=== PATIENT | male | born 1970 | race Caucasian/White ===

== ENCOUNTER 2020-07-09 07:09 | Inpatient (IN) | payer OTHER, SELFPAY ==
[2020-07-09] VITALS (29 sets, daily range): BP systolic 110–147; BP diastolic 81–128; PULSE 92–105; RESP 17–30; TEMP 36.6–37; O2SAT 90–100; BMI 38.9; BMI 35.1
--- NOTE | 2020-07-09 07:11 | EKG12_ITS ---
Test Reason : SOB Blood Pressure : / mmHG Vent. Rate : 104 BPM Atrial Rate : 104 BPM P-R Int : 150 ms QRS Dur : 110 ms QT Int : 372 ms P-R-T Axes : 037 073 018 degrees QTc Int : 489 ms Sinus tachycardia Possible Right ventricular hypertrophy Nonspecific ST abnormality Abnormal ECG Confirmed by AGA SKAGGS, SURESH ([id number]), business editor RE GUZMAN ([id number]) on 07/10/2020 1:01:54 PM Referred By: DENNIS Confirmed By:SURESH YUNG MD
--- NOTE | 2020-07-09 07:12 | CT_ITS ---
STUDY: CTA CHEST REASON FOR EXAM: Male, 50 years old. HYPOXIA, CP, HERNIA REPAIR 07/04/20, HX LUNG/TESTICULAR CANCER RADIATION DOSAGE (If Supplied By Facility): CTDIvol = ( 11.43 ) mGy, DLP = ( 569.18 ) mGycm TECHNIQUE: The examination was performed with the intravenous administration of IV 100mL Isovue-370. Post-processing of the angiographic images was performed, with multiplanar reformation and 3D reconstruction. Individualized dose optimization techniques were used for this CT. COMPARISON: Comparison is made with prior study 06/16/2016. FINDINGS: Multiple bilateral intraluminal filling defects involving all the branches of the pulmonary arteries bilaterally. Thrombus is also seen within the distal portions of the right and left main pulmonary arteries. Normal thoracic aorta and visualized great vessels. There is no demonstrated aortic dissection. Normal heart and pericardium. There are visualized mediastinal lymph nodes, which are within normal size limits, and with normal morphology. These have decreased in size as compared to prior study. Normal hilar regions. Normal visualized trachea and bronchi. The lungs are well expanded. Focal atelectasis and/or infiltrate is seen in the posterior medial segment of the right lower lobe. Mild increased markings are also seen in the anterior medial aspect of the right middle lobe as well as thickening of the left major fissure. Normal pleura. Normal chest wall structures. Normal osseous structures. Multiple small gallstones. CT/CTA Chest W/WO Contrast IMPRESSION: Extensive bilateral pulmonary embolism. Electronically Signed: Nicholas Jones, at 8:23 EST , Service support ,
--- NOTE | 2020-07-09 07:35 | ED.VIS.GEN ---
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 Angel Gorman Onset: Today Context: Sudden Onset Timing: Continuous Quality: Acute chest pain and abdominal pain Location: Anterior right central Current Severity: Severe Maximum Severity: Severe Worsened by: Breathing Relieved by: Nothing Associated Symptoms: Shortness of breath and hypoxia Narrative: Patient is a 50-year-old healthy male who had abdominal surgery for hernia by Dr. Angel Coreas on Thursday. He was Covid negative that time. He has had abdominal pain since surgery. He is on pain medicine. He states he was walking on the steps when he got an abrupt onset of chest pain or shortness of breath. He states he is not been doing much. He denies constitutional symptoms, HEENT symptoms, nausea, vomiting or diarrhea. He denies urologic symptoms. He denies leg pain, swelling discoloration. Prior similar symptoms: No Recent Illness/Hospitalization: Yes - Past Medical History (1) Lung cancer Status: Suspected (2) Restrictive lung disease medication Status: Acute Past Medical History - Allergies and Home Meds Allergies/Adverse Reactions: Allergies No Known Allergies Allergy (Verified 07/09/20 07:15) Primary Care Physician: Connor Alfaro MD [Primary Care Provider] - Prior records reviewed: No Surgical History: - - Right orchiectomy, MediPort insertion Lives: Spouse/ Significant Other, With Family Smoking Status: Former smoker Alcohol: None Drugs: None - Family History Maternal Family History: Reports: Cancer Paternal Family History: Reports: DVT Review of Systems General: Denies: Chills, Fever, Malaise, Sweats Eyes: Denies: Visual changes - bilaterally, Blurred Vision - bilaterally ENT: Denies: Bilateral ear pain, Rhinorrhea, Sore throat Cardiovascular: Reports: Chest pain, Palpitations Respiratory: Reports: Dyspnea, Dyspnea on exertion. Denies: Cough, Sputum, Orthopnea, Paroxysmal nocturnal dyspnea, -, - Gastrointestinal: Reports: Abdominal pain, Nausea, Constipation. Denies: Vomiting, Diarrhea, Melena, Hematochezia Genitourinary: Denies: Dysuria, Hematuria, Frequency Musculoskeletal: Reports: Extremity Pain - Significant other informed he complained of right calf pain yesterday.. Denies: Myalgias, Arthralgias, Neck pain, Back pain, Swelling, -, - Skin: Denies: Rash, Wounds Neurological: Denies: Headache, Weakness, Parasthesia Psych: Reports: Anxiety. Denies: Depression Endocrine: Denies: Polyuria, Polydipsia Hematologic: Denies: Easy bruising, Easy bleeding Physical Exam Vital Signs/Narrative: Vital Signs Temp Pulse Resp BP Pulse Ox 07/09/20 07:17 96 07/09/20 07:14 98 F 103 H 30 H 110/81 H 93 07/09/20 07:10 98 F 103 H 30 H 110/81 H 93 Inital Vital Signs reviewed: Yes General: Well nourished, Well developed, Obese, Acute Distress Head: Normocephalic, Atraumatic Eyes: Perrl, EOMI. Negative for: Pale conjunctiva ENT: No rhinorrhea Neck: Supple, Nontender, No lymphadenopathy, No JVD Cardiovascular: Regular rhythm, No murmurs, Normal S1, Normal S2, Tachycardia Respiratory: CTA bilaterally, Decreased Air Movement Abdomen: Soft, No masses, - - Healing incision and bruising noted. Negative for: Nontender, Nondistended, Normal bowel sounds Rectal: Deferred Back: Nontender, Normal Inspection Extremities: Nontender, Tenderness - Right mid calf, - - Is increased size of the right calf but not greater than 3 cm. Skin: Normal color, No rash. Negative for: Cyanosis, Diaphoresis, Jaundice Neurological: Alert, Oriented x3, Cranial nerves II-XII grossly intact, Normal Strength, Normal Sensation Psychological: Normal affect Diagnostic/Tx/Re-eval 07/09/20 07:12 CTA Chest W/WO Contrast [CT] Stat Laboratory Results 07/09/20 07:30 WBC 11.9 H RBC 5.27 Hgb 16.0 Hct 46.8 MCV 88.8 MCH 30.4 MCHC 34.2 RDW Std Deviation 39.7 RDW Coeff of Uriel 12.2 Plt Count 175 MPV 9.6 Immature Gran % (Auto) 0.600 Neut % (Auto) 81.7 H Lymph % (Auto) 11.3 L Gladwin % (Auto) 5.0 Eos % (Auto) 1.1 Baso % (Auto) 0.3 Absolute Neuts (auto) 9.8 H Absolute Lymphs (auto) 1.35 Nucleated RBC % 0 - EKG Initial EKG Interpretation: Sinus Tachycardia - Sinus tachycardia with a ventricular rate of 104. TX interval is 150 ms. QRS duration 110 ms. QT duration [address]-T wave changes most likely due to respiratory distress. There is evidence of right heart strain. - Medical Decision Making History of recent surgery, pulse ox of 60% with acute chest pain concern for pulmonary embolus. Dr. Angel Coreas was contacted prior to patient's arrival. He stated if TPA is needed may administer since his surgery was last Thursday. He states he put mesh and and tacked it down. The bowel he states was irritated. There was no significant dissection or bleeding intraoperatively. There was lysis of adhesions. Differential diagnosis includes cardiac ischemia, doubtful based on prehospital EKG, pulmonary embolus, dissection, pneumonia. Nursing staff was unable to establish peripheral IV access for CTA. Right subclavian line was placed under emergent conditions. Patient was prepped draped sterile manner. Hospital policy and guidelines were adhered to. Everyone in the room was wearing a cap and mask. The patient was prepped draped sterile manner. The right subclavian vein was cannulated excessively first attempt. He complained of significant pain with insertion of guidewire. Guidewire had resistance and was pulled out. Readjustment of needle resulted in aspiration of blood. Using Seldinger technique triple-lumen was placed. Blood was aspirated from all 3 ports. Patient was given a bolus of heparin. Spoke with significant other who informed me of the calf pain. CT was reviewed by me and reveals bilateral pulmonary embolus involving the right and left main pulmonary artery with significant clot load/. The hospitalist was contacted for admission to ICU. - Critical Care Time Critical care time (excluding procedures): 30-74 minutes - Critical care time 37 minutes excluding procedures. This included a history, physical examination, documentation, discussion with surgeon,, Discussing w/Patient &/or Family/Grave Digger, Discussing w/Consultants - The hospitalist request that I speak with the defence force senior officer. Test was placed on paged to inform him of patient's history, physical findings and diagnostic results., Arranging Admission or Transfer Procedures Procedure(s): Right subclavian line was placed. Documentation in the medical decision making portion of the chart. ED Disposition - Plan for ED Patient: Disposition: Acute Care Hospital [facility] Diagnosis: Bilateral pulmonary embolism, Acute respiratory failure with hypoxia Referrals: Connor Alfaro MD [Primary Care Provider] -
[2020-07-09] MEDS: Heparin Injection (Vial) 5,000 UNIT/ML VIAL 4000 UNIT IV (07:37)
[2020-07-09] MEDS: 0.9% Normal Saline 1,000 ML 150 ML IV ×4 (07:39→22:44)
[2020-07-09 07:57] LABS: Absolute Lymphocyte Count 1.35 X10^3/uL (0.83-4.51); Absolute Neutrophil Count 9.8 X10^3/uL (2.0-7.7); Basophil# 0.03 X10^3/uL; Basophil% 0.3 % (0-1); Eosinophil# 0.13 X10^3/uL; Eosinophils% 1.1 % (0-5); Hematocrit 46.8 % (40-54); Lymphocyte # 1.35 X10^3/ul (4.0); Lymphocyte % 11.3 % (19-41); Mean Corp Hgb Conc 34.2 g/dL (32-36); Mean Corpuscular Hgb 30.4 pg (27.0-32.0); Mean Corpuscular Volume 88.8 fL (80-94); Mean Platelet Vol. 9.6 fl (6.2-12.0); NRBC Flagged by Analyzer 0 % (0-5); Neutrophil # 9.75 X10^3/uL (2.7-7.7); Neutrophil % 81.7 % (47-70); POSITIVE COUNT YES; Platelet Count 175 K/mm3 (150-450); RBC Distribution Width CV 12.2 % (11.6-14.6); RBC Distribution Width SD 39.7 fl (35.1-43.9); Red Blood Count 5.27 M/mm3 (4.6-6.2); White Blood Count 11.9 K/mm3 (4.4-11.0)
--- NOTE | 2020-07-09 07:59 | NURSING ---
DR MCINTOSH FOR DR COLLINS
[2020-07-09 08:00] LABS: Differential Indicated SCAN CRITERIA MET
--- NOTE | 2020-07-09 08:10 | NURSING ---
ICU TERELETSKY SUBMASSIVE AR, RESP FAILURE WITH HYPOXIA
--- NOTE | 2020-07-09 08:10 | NURSING ---
DR MCINTOSH IN WITH PATIENT
[2020-07-09 08:12] LABS: Anion Gap 11 (5-15); BUN 15 mg/dL (7-18); BUN/Creat Ratio 9.5 RATIO (10-20); Calcium,Total 10.8 mg/dL (8.5-10.1); Chloride 101 mmol/L (98-107); Creatinine, Serum 1.58 mg/dL (0.70-1.30); EST Glomerular Filtration Rate 50 mL/min (>60); Est Glom Filt Rate - Afr Amer 60 mL/min (>60); Estimated Creatinine Clearance 55.32 ml/min; Glucose 183 mg/dL (74-106); International Normalized Ratio 1.1; Potassium 3.7 mmol/L (3.5-5.1); Prothrombin Time (Protime)PT. 13.6 SECONDS (11.7-14.9); Sodium Level 139 mmol/L (136-145)
[2020-07-09 08:13] LABS: Partial Thromboplast Time 21.5 Seconds (24.1-36.2)
[2020-07-09 08:16] LABS: BNP,B-Type NATRIURETIC PEPTIDE 10.5 pg/mL (0-100)
[2020-07-09 08:17] LABS: Platelet Estimate ADEQUATE (ADEQ)
[2020-07-09 08:18] LABS: Platelet Morphology LARGE
--- NOTE | 2020-07-09 08:28 | NURSING ---
CV ICU 201
[2020-07-09] MEDS: HEPARIN/D5w 25,000 UNITS 25,000 UNITS/250 ML IV.SOLN. 16 UNITS IV ×2 (08:31→22:43)
[2020-07-09] MEDS: Heparin Injection (Vial) 5,000 UNIT/ML VIAL 500 UNIT IV (08:31)
--- NOTE | 2020-07-09 09:02 | PCM.HP.STD ---
Problem List (1) Shortness of breath Status: Acute History of Present Illness Date of Admission: 07/09/20 Chief Complaint: Shortness of breath, chest pain The patient is a 50 year old M who was seen in the emergency room at with a chief complaint of increasing shortness of breath which started early this morning, patient had some slight shortness of breath last night, this morning it got much worse and he had associated precordial chest pain with it. Patient had major abdominal surgery 4 days ago for lysis of adhesions. His Covid test at that time was negative. Patient denies any fevers or chills. Work-up in the emergency room included labs which showed his creatinine to be slightly elevated, white blood cell count was elevated 11.9, his troponin was elevated at 0.212. Patient had a CTA of his chest which showed extensive bilateral pulmonary emboli. Patient was placed on a nonrebreather and he was able to maintain his oxygen saturation with a nonrebreather. Patient will be admitted to ICU on a heparin drip, he will be seen in consultation by the orchestrator. Past Medical History Allergies No Known Allergies Allergy (Verified 07/09/20 07:15) Surgical History: appendectomy, - - Right orchiectomy, MediPort insertion, surgery for lysis of adhesions 06/2020 Psychiatric History: No pertinent psych hx Lives: Spouse/ Significant Other Smoking Status: Former smoker Tobacco Use: Non-smoker Alcohol: Occasional Drugs: None - *Family History Maternal History Items: Cancer Paternal History Items: DVT Review of Systems Constitutional: Reports: Fatigue. Denies: Anorexia, Chills, Fever, Night Sweats, Malaise, Weakness, Weight Change Eyes: Denies: Cataracts, Conjunctivae Inflammation, Double vision, Drainage HEENT: Denies: Difficulty Swallowing, Dysphasia, Ear Pain, Eye Pain, Hearing Changes, Nasal bleeding, Nasal Congestion, Post Nasal Drip Cardiovascular: Reports: Chest Pain. Denies: Claudication, Chest Pressure, Chest Tightness, Edema, Heaviness, Light Headedness, Orthopnea, Palpitations, Paroxysmal Noc. Dyspnea Respiratory: Reports: Shortness of Breath, Shortness of breath at rest, Shortness of breath upon exertion. Denies: Cough, Hemoptysis, Pleuritic Pain, Sputum production, Wheezing Gastrointestinal: Reports: Abdominal Pain - Patient complains of generalized abdominal pain which has been present after his surgery several days ago. Denies: Constipation, Diarrhea, Hematemesis, Hematochezia, Nausea, Melena, Vomiting Genitourinary: Denies: Dysuria, Frequency, Hematuria, Hesitancy, Nocturia, Retention, Urgency Musculoskeletal: Denies: Back Pain, Foot Pain, Hand Pain, Joint Pain, Joint stiffness, Joint swelling, Joint Tenderness, Leg Pain Skin: Denies: Dryness, Jaundice, Pruritis, Rash Neurological: Denies: Blurred vision, Double vision, Slurred speech, Difficulty swallowing, Focal weakness, Headaches, Incoordination, Numbness, Tingling Psychiatric: Denies: Anxiety, Depression, Homicidal Ideations, Suicidal Ideations Endocrine: Denies: Change in Body Habitus, Heat/ Cold Intolerance, Polydipsia, Polyuria Hematologic/ Lymphatic: Denies: Adenopathy, Anemia, Easy Bruising, Easy Bleeding, Petechiae, Purpura VTE Information - Inpt Only VTE Present on Admission: Yes VTE Mechan Device Prophylaxis: None VTE Pharm Prophylaxis ordered?: No Reason prophylaxis not ordered:: Treatment Not Indicated Patient Problems: Active and Suspected Problems Lung cancer (Suspected) Restrictive lung disease medication (Acute) Bilateral pulmonary embolism (Acute) Acute respiratory failure with hypoxia (Acute) Shortness of breath (Acute) - Physical Exam Vitals/I&O's: Vital Signs Temp Pulse Resp BP Pulse Ox 97.9 F 100 26 H 126/89 H 97 07/09/20 08:43 07/09/20 08:43 07/09/20 08:43 07/09/20 08:43 07/09/20 08:43 Oxygen Flow Rate (L/min) 12 Oxygen Delivery Method Non-Rebreather Weight: 116.25 kg Body Mass Index (BMI) 38.9 General: Alert, Oriented x3, Cooperative, No apparent distress, Well developed, Well nourished HEENT: Atraumatic, PERRLA, EOMI, Normocephalic Oral: Moist Mucosa Neck: Supple, No JVD, Trachea Midline, Thyroid Normal Size and Texture Lungs: Clear to auscultation, Normal air movement, No rhonchi, No wheeze, No rales Cardiovascular: Regular rate, Regular Rhythm, Normal S1, Normal S2, No murmurs, PMI Normal, No rub noted, Tachycardic Abdomen: Bowel Sounds Present, Soft, Non-Distended, Tender - Generalized abdominal tenderness is noted to deep palpation over the entire abdomen Extremities: No clubbing, No cyanosis, No edema, Capillary Refill Less than 3 Seconds Skin: No rashes, No breakdown Musculoskeletal: No Tenderness to Palpation of Joints or Extremities Neurological: Cranial nerves II-XII grossly intact, Neuro grossly intact, Sensory exam intact to light touch and pain Psych/Mental Status: Normal Affect, Appropriate, Alert and oriented to time, place, person, mood and affect Laboratory Results 07/09/20 07:30: WBC 11.9 H, RBC 5.27, Hgb 16.0, Hct 46.8, MCV 88.8, MCH 30.4, MCHC 34.2, RDW Std Deviation 39.7, RDW Coeff of Uriel 12.2, Plt Count 175, MPV 9.6, Immature Gran % (Auto) 0.600, Neut % (Auto) 81.7 H, Lymph % (Auto) 11.3 L, Simpson % (Auto) 5.0, Eos % (Auto) 1.1, Baso % (Auto) 0.3, Absolute Neuts (auto) 9.8 H, Absolute Lymphs (auto) 1.35, Nucleated RBC % 0, Platelet Estimate ADEQUATE, Plt Morphology Comment LARGE 07/09/20 07:30: PT 13.6, INR 1.1, APTT 21.5 L 07/09/20 07:30: Sodium 139, Potassium 3.7, Chloride 101, Carbon Dioxide 27.0, Anion Gap 11, BUN 15, Creatinine 1.58 H, Estim Creat Clear Calc 55.32, Est GFR (MDRD) Af Amer 60, Est GFR (MDRD) Non-Af 50 L, BUN/Creatinine Ratio 9.5 L, Glucose 183 H, Calcium 10.8 H, Troponin I 0.212 H 07/09/20 07:30: B-Natriuretic Peptide 10.5 Current Medications Acetaminophen (Acetaminophen 325 Mg Tablet) 650 mg PO Q6H PRN PRN PRN Reason: Pain Score 1-10/Temp > 100.7 F Heparin Sodium (Porcine) (Heparin Injection (Vial) 5,000 Unit/Ml Vial) 0 unit IV UD PRN; Protocol PRN Reason: dose adjustment Sodium Chloride () 1,000 mls @ 150 mls/hr IV .[id number] FOR[facility]LY [facility], 1928–1983 Last Admin: 07/09/20 07:39 Dose: 150 mls/hr Documented by: Sodium Chloride 1,000 ml/ N/A 1,000 mls @ 348.75 mls/hr IV .[id number] [facility], 1928–1983 Stop: 07/09/20 14:16 Last Admin: 07/09/20 08:10 Dose: 3 ml/kg/hr, 348.8 mls/hr Documented by: Heparin Sodium/Dextrose () 25,000 units in 250 mls @ 16 mls/hr IV .[id number] [facility], 1928–1983; Protocol Last Admin: 07/09/20 08:31 Dose: 1,600 units/hr, 16 mls/hr Documented by: Morphine Sulfate (Morphine 4 Mg/Ml Syringe) 4 mg IV Q3H PRN PRN PRN Reason: Pain Score 6-10 Ondansetron HCl (Ondansetron 4 Mg/2 Ml Vial) 4 mg IV Q8H PRN PRN PRN Reason: NAUSEA/VOMITING Assessment/Plan All Active Problems Restrictive lung disease medication (Acute) Bilateral pulmonary embolism (Acute) Acute respiratory failure with hypoxia (Acute) Shortness of breath (Acute) Fever and neutropenia (Acute) #1 acute bilateral pulmonary emboli-patient will be admitted to ICU on a heparin drip, he will be seen in consultation by pulmonary medicine. #2 acute hypoxic respiratory failure secondary to #1-patient's O2 sat will be monitored, he is currently on nonrebreather #3 elevated creatinine-probably secondary to dehydration, IV fluids will be given #4 history of restrictive lung disease-secondary to medication given for lung cancer Inpatient E&M: [id number] Init Hosp L3
--- NOTE | 2020-07-09 10:20 | PCM.CON.CC ---
Reason for Consult Date of Consultation: 07/09/20 Reason for Consultation: Acute hypoxemic respiratory failure secondary to submassive pulmonary embolism History of Present Illness: The patient is a 50-year-old male, with a history as outlined below, who presented to the emergency department on July 09 with rather abrupt onset shortness of breath. The patient does have a history of metastatic testicular cancer, which was treated in the past and is under surveillance by Dr. Zhu of oncology. The patient did report having been diagnosed with venous thromboembolism around the time of his cancer treatment. He was treated for a period of time with Lovenox. The patient just recently underwent surgery by Dr. Joe last week, during which time, he underwent a hernia repair and lysis of adhesions. The patient reported that postoperatively he was immediately mobilized and denied any prolonged immobility. On presentation to the emergency department, the patient was noted to be afebrile but was tachycardic, tachypneic and hypoxemic. Laboratory evaluation was largely unremarkable, with the exception of a creatinine of 1.58. Troponin was increased to 0.212 with a normal BNP. CTA chest revealed significant bilateral pulmonary emboli. The patient was placed on a continuous heparin infusion and admitted to the medical intensive care unit for further management. Past Medical History Allergies No Known Allergies Allergy (Verified 07/09/20 07:15) Surgical History: appendectomy, - - Right orchiectomy, MediPort insertion, surgery for lysis of adhesions 06/2020 Psychiatric History: No pertinent psych hx Lives: Spouse/ Significant Other Smoking Status: Former smoker Tobacco Use: Non-smoker Alcohol: Occasional Drugs: None - *Family History Maternal History Items: Cancer Paternal History Items: DVT Review of Systems Constitutional: Denies: Chills, Fever Eyes: Denies: Blurred vision, Double vision HEENT: Denies: Head Aches, Sinus Congestion, Sinus Drainage Cardiovascular: Denies: Chest Pain, Palpitations Respiratory: Reports: Shortness of Breath Gastrointestinal: Denies: Abdominal Pain, Nausea, Vomiting Genitourinary: Denies: Dysuria Musculoskeletal: Denies: Joint Pain, Joint Tenderness Skin: Denies: Rash, Wounds Neurological: Denies: Numbness, Tingling, Focal weakness Psychiatric: Denies: Anxiety, Depression, Homicidal Ideations, Suicidal Ideations Hematologic/ Lymphatic: Reports: Hx of blood clot Patient Problems: Active and Suspected Problems Lung cancer (Suspected) Restrictive lung disease medication (Acute) Bilateral pulmonary embolism (Acute) Acute respiratory failure with hypoxia (Acute) Shortness of breath (Acute) Objective: The patient's most recent lab work, culture data and imaging studies have all been personally reviewed. - Physical Exam Vitals/I&O's: Vital Signs Temp Pulse Resp BP Pulse Ox 97.9 F 99 22 H 147/128 H 100 07/09/20 08:43 07/09/20 10:00 07/09/20 10:00 07/09/20 10:00 07/09/20 10:00 Oxygen Flow Rate (L/min) 15 Oxygen Delivery Method Non-Rebreather Weight: 251 lb 15.814 oz Body Mass Index (BMI) 35.1 Intake and Output for Last 24 Hours 07/07/20 07/08/20 07/09/20 23:59 23:59 23:59 Intake Total 426.29 / 426.29 Output Total 350 / 350 Balance 76.29 / 76.29 General: Alert, Cooperative, No apparent distress HEENT: Atraumatic, PERRLA, Normocephalic Oral: No Gingival or Mucosal Lesions/ Ulcerations Neck: Supple, No Nodes, Trachea Midline Lungs: No rhonchi, No wheeze, No rales, Diminished, Tachypneic Cardiovascular: Regular rate, Regular Rhythm Abdomen: Bowel Sounds Present, Soft, Obese, Tender Extremities: No clubbing, No cyanosis, No edema Skin: No breakdown Musculoskeletal: No Tenderness to Palpation of Joints or Extremities Lymphatic: No Cervical, Supraclavicular, or Inguinal Adenopathy Neurological: Cranial nerves II-XII grossly intact, Neuro grossly intact Psych/Mental Status: Normal Affect, Appropriate Labs (Last 48 Hours) 07/09/20 07/09/20 07/09/20 07:30 07:30 07:30 WBC 11.9 H RBC 5.27 Hgb 16.0 Hct 46.8 MCV 88.8 MCH 30.4 MCHC 34.2 RDW Std Deviation 39.7 RDW Coeff of Uriel 12.2 Plt Count 175 MPV 9.6 Immature Gran % (Auto) 0.600 Neut % (Auto) 81.7 H Lymph % (Auto) 11.3 L [place] % (Auto) 5.0 Eos % (Auto) 1.1 Baso % (Auto) 0.3 Absolute Neuts (auto) 9.8 H Absolute Lymphs (auto) 1.35 Nucleated RBC % 0 Platelet Estimate ADEQUATE Plt Morphology Comment LARGE PT 13.6 INR 1.1 APTT 21.5 L Sodium 139 Potassium 3.7 Chloride 101 Carbon Dioxide 27.0 Anion Gap 11 BUN 15 Creatinine 1.58 H Estim Creat Clear Calc 55.32 Est GFR (MDRD) Af Amer 60 Est GFR (MDRD) Non-Af 50 L BUN/Creatinine Ratio 9.5 L Glucose 183 H Calcium 10.8 H Troponin I 0.212 H B-Natriuretic Peptide 07/09/20 07:30 WBC RBC Hgb Hct MCV MCH MCHC RDW Std Deviation RDW Coeff of Uriel Plt Count MPV Immature Gran % (Auto) Neut % (Auto) Lymph % (Auto) [place] % (Auto) Eos % (Auto) Baso % (Auto) Absolute Neuts (auto) Absolute Lymphs (auto) Nucleated RBC % Platelet Estimate Plt Morphology Comment PT INR APTT Sodium Potassium Chloride Carbon Dioxide Anion Gap BUN Creatinine Estim Creat Clear Calc Est GFR (MDRD) Af Amer Est GFR (MDRD) Non-Af BUN/Creatinine Ratio Glucose Calcium Troponin I B-Natriuretic Peptide 10.5 Clinical Impression(s) from Imaging Studies Chest CTA 07/09/20 07:12 IMPRESSION: Extensive bilateral pulmonary embolism. Electronically Signed: Nicholas Jones, at 8:23 EST , Service support , Current Medications Acetaminophen (Acetaminophen 325 Mg Tablet) 650 mg PO Q6H PRN PRN PRN Reason: Pain Score 1-10/Temp > 100.7 F Heparin Sodium (Porcine) (Heparin Injection (Vial) 5,000 Unit/Ml Vial) 0 unit IV UD PRN; Protocol PRN Reason: dose adjustment Sodium Chloride () 1,000 mls @ 150 mls/hr IV .Q6H40M [facility] Last Admin: 07/09/20 07:39 Dose: 150 mls/hr Documented by: Sodium Chloride 1,000 ml/ N/A 1,000 mls @ 348.75 mls/hr IV .Q2H53M [facility] Stop: 07/09/20 14:16 Last Admin: 07/09/20 09:51 Dose: Not Given Documented by: Heparin Sodium/Dextrose () 25,000 units in 250 mls @ 16 mls/hr IV .[id number] [facility]; Protocol Last Titration: 07/09/20 09:00 Dose: 1,600 units/hr, 16 mls/hr Documented by: Morphine Sulfate (Morphine 4 Mg/Ml Syringe) 4 mg IV Q3H PRN PRN PRN Reason: Pain Score 6-10 Ondansetron HCl (Ondansetron 4 Mg/2 Ml Vial) 4 mg IV Q8H PRN PRN PRN Reason: NAUSEA/VOMITING Sodium Chloride (0.9% Saline Lock 10 Ml Syringe) 10 - 40 ml IV UD PRN PRN Reason: SALINE FLUSH Assessment/Plan Active and Suspected Problems Lung cancer (Suspected) Restrictive lung disease medication (Acute) Bilateral pulmonary embolism (Acute) Acute respiratory failure with hypoxia (Acute) Shortness of breath (Acute) RECOMMENDATIONS: 1. Continue heparin infusion with plans to transition to Xarelto or Eliquis tomorrow. 2. Obtain echocardiogram. 3. Wean supplemental oxygen to maintain saturations at or above 90%. 4. Encourage incentive spirometer use and mobilize patient as tolerated. IMPRESSIONS: 1. Acute hypoxemic respiratory failure secondary to submassive PE The patient presented to the hospital with rather acute onset shortness of breath having recently undergone elective outpatient surgery last week. The patient was subsequently found to be positive for submassive PE, with extensive clot burden noted on CTA chest. 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 Given the unprovoked nature of this event coupled with his extensive clot burden, he would likely best be served by systemic anticoagulation without plans for interruption. Agree with continuing heparin infusion for now. If the patient remains stable over the next 24 hours, will plan to transition him to a Xa inhibitor tomorrow. Wean supplemental oxygen to maintain saturations at or above 90%. The patient plans to follow-up with Dr. Zhu in the very near future regarding the need for lifelong anticoagulation. 2. Acute kidney injury Likely prerenal in etiology. The patient is currently receiving supplemental IV fluid hydration. Anticipate improvement with volume expansion. Continue to monitor urine output. No current indication for renal replacement therapy. 3. History of testicular nonseminoma cancer Complicates care, management, recovery and prognosis. Continue outpatient follow-up with hematology/oncology as scheduled. CODE status: Discussed CODE status at length including difference between FULL code, DNR-CCA and DNR-CC status. Following discussions about the differences in these status, patient requested full CODE STATUS. Advanced Care Planning Face to Face Time: 12 minutes This note was generated with [employer] dictation software. It may contain incorrect words, spelling, and punctuation that were not noted in checking the note before signing. Inpatient E&M: 21963 Init Hosp L3 Procedures: 27736 Advncd Care Plan 30 Min
--- NOTE | 2020-07-09 11:32 | ECHOCS_ITS ---
Reason For Study: Emboli Procedure This was a 2D Doppler, Color Flow transthoracic echocardiogram. The study was technically difficult. Contrast injection was performed. Exam performed portable in ICU/CCU. Left Ventricle Normal LV size. Left ventricular systolic function is normal. The estimated ejection fraction is 60 %. No regional wall motion abnormalities noted. Right Ventricle Moderately dilated right ventricle. Mild to moderate global right ventricular systolic dysfunction. Atria Normal left atrium. Normal right atrium. Mitral Valve Normal mitral valve. Tricuspid Valve Normal tricuspid valve. Unable to estimate RV systolic pressure/pulmonary artery pressure due to technically difficult study. Aortic Valve Trisinus/trileaflet aortic valve. Pulmonic Valve The pulmonic valve is not well visualized. Great Vessels Normal aortic root. Pericardium/Pleural No pericardial effusion. Medication Diluted definity 1.5ml given slow IV push to enhance endocardial definition. MMode/2D Measurements & Calculations LVIDd: 3.2 cm IVSd: 1.7 cm LA dimension: 3.0 cm LVIDs: 1.8 cm LVPWd: 1.3 cm RVDd: 5.3 cm FS: 44.2 % LAV(MOD-bp): 27.1 ml LA A4 area: 10.1 cm2 RA A4 area: 17.6 cm2 LAV(MOD-bp) Indexed: 11.7 ml/m2 LAV(MOD-sp2): 35.7 ml LAV(MOD-sp4): 19.3 ml Time Measurements MV dec time: 0.21 sec Doppler Measurements & Calculations MV E max coy: 63.6 cm/sec Lat Peak E' Coy: 11.5 cm/sec Med Peak E' Coy: 5.1 cm/sec MV A max coy: 92.8 cm/sec E/E' lat: 5.5 E/E' med: 12.5 MV E/A: 0.69 Ao V2 max: 130.0 cm/sec LV V1 max: 114.1 cm/sec PA V2 max: 46.6 cm/sec Ao max P.8 mmHg LV V1 max P.2 mmHg Interpretation Summary Normal LV size. Left ventricular systolic function is normal. The estimated ejection fraction is 60 %. Moderately dilated right ventricle. Mild to moderate global right ventricular systolic dysfunction. Contrast injection was performed. The study was technically difficult. Ordering Physician: Tay Calvin Referring Physician: Connor Alfaro Performed By: Juan Hines RCS
[2020-07-09 14:11] LABS: Partial Thromboplast Time 73.9 Seconds (24.1-36.2)
--- NOTE | 2020-07-09 16:20 | NURSING ---
Pt called out stating he is having left flank/back pain. Pt states pain is 6/10 but denies need for pain medication. Pain is reproducible on palpation at the L4-L5 region to the left of the spine. There is no deformity or bruising noted. Dr. Forrest notified, H&H and Kidney ultrasound ordered.
--- NOTE | 2020-07-09 16:33 | US_ITS ---
STUDY: RENAL ULTRASOUND - COMPLETE REASON FOR EXAM: Male, 50 years old. LEFT FLANK PAIN, RECENT HERNIA SURGERY TECHNIQUE: Ultrasound evaluation of the kidneys was performed with real-time and static yarbrough-scale imaging. COMPARISON: CTA of the chest dated July 09, 2020. FINDINGS: Reidentification of multiple gallstones. RIGHT KIDNEY: Normal location of the right kidney, which is normal in size. The right kidney measures 9.9 x 5.5 x 5.9 cm. There is a normal cortex of the right kidney. The renal cortex measures 1.4 cm. There is no right renal mass or cyst. There are no right renal calculi. There is no right hydronephrosis. DISTAL RIGHT URETER: There is non-visualization of the distal right ureter. There is no demonstrated right ureterovesical junction calculus. There is a visualized right ureteral jet. LEFT KIDNEY: Normal location of the left kidney, which is normal in size. The left kidney measures 12.1 x 5.6 x 5.8 cm. There is a normal cortex of the left kidney. The renal cortex measures 1.7 cm. There is no left renal mass or cyst. There are no left renal calculi. There is no left hydronephrosis. DISTAL LEFT URETER: There is non-visualization of the distal left ureter. There is no demonstrated left ureterovesical junction calculus. There is a visualized left ureteral jet. BLADDER: Normal fluid distended bladder. There is a normal wall thickness of the distended urinary bladder. There is no demonstrated mass within the urinary bladder. There are no demonstrated bladder calculi. US/Kidney and Bladder IMPRESSION: 1. Normal ultrasound of the kidneys and urinary bladder. 2. Multiple gallstones. Electronically Signed: El Orozco MD at 18:48 EST , Service support ,
[2020-07-09 16:34] LABS: Hemoglobin 14.8 g/dL (13.0-16.5)
[2020-07-09] MEDS: Morphine 4 MG/ML Syringe IV ×2 (19:38→22:48)
[2020-07-09] MEDS: Ondansetron 4 MG/2 ML Vial IV (19:39)
[2020-07-09] MEDS: Calcium Carbonate 500 MG Tablet 1000 MG PO (20:16)
[2020-07-09 21:12] LABS: Partial Thromboplast Time 62.6 Seconds (24.1-36.2)
[2020-07-09] MEDS: 0.9% Saline Lock 10 ML Syringe IV (22:49)
[2020-07-10] VITALS (16 sets, daily range): BP systolic 112–147; BP diastolic 69–103; PULSE 80–105; RESP 13–18; TEMP 36.6–37.3; O2SAT 92–98
[2020-07-10] MEDS: Morphine 4 MG/ML Syringe IV ×2 (04:24→10:49)
[2020-07-10] MEDS: 0.9% Normal Saline 1,000 ML 150 ML IV (04:28)
[2020-07-10 04:42] LABS: Absolute Lymphocyte Count 1.44 X10^3/uL (0.83-4.51); Basophil# 0.03 X10^3/uL; Basophil% 0.3 % (0-1); Eosinophil# 0.12 X10^3/uL; Eosinophils% 1.3 % (0-5); Hematocrit 41.3 % (40-54); Lymphocyte # 1.44 X10^3/ul (4.0); Lymphocyte % 15.1 % (19-41); Mean Corp Hgb Conc 33.9 g/dL (32-36); Mean Corpuscular Hgb 30.2 pg (27.0-32.0); Mean Platelet Vol. 8.8 fl (6.2-12.0); Monocyte# 0.93 X10^3/uL; Monocyte% 9.7 % (0-10); NRBC Flagged by Analyzer 0 % (0-5); Neutrophil # 7.01 X10^3/uL (2.7-7.7); Neutrophil % 73.3 % (47-70); Platelet Count 143 K/mm3 (150-450); RBC Distribution Width CV 12.3 % (11.6-14.6); RBC Distribution Width SD 39.9 fl (35.1-43.9); Red Blood Count 4.64 M/mm3 (4.6-6.2); White Blood Count 9.6 K/mm3 (4.4-11.0)
[2020-07-10] MEDS: LORazepam 2 MG/ML Syringe 0.5 MG IV (05:07)
[2020-07-10] MEDS: 0.9% Saline Lock 10 ML Syringe IV ×4 (05:08→19:15)
[2020-07-10 05:13] LABS: Anion Gap 5 (5-15); BUN 12 mg/dL (7-18); Calcium,Total 8.7 mg/dL (8.5-10.1); Chloride 105 mmol/L (98-107); Creatinine, Serum 1.34 mg/dL (0.70-1.30); EST Glomerular Filtration Rate 60 mL/min (>60); Est Glom Filt Rate - Afr Amer 73 mL/min (>60); Glucose 117 mg/dL (74-106); Potassium 3.8 mmol/L (3.5-5.1); Sodium Level 140 mmol/L (136-145)
--- NOTE | 2020-07-10 06:11 | PCM.PN.INT ---
Subjective: The patient was seen and examined at the bedside this morning. Events from the last 24 hours have been reviewed. The patient is currently afebrile, hemodynamically stable and maintaining appropriate oxygen saturations on 5 L/min via nasal cannula. The patient denies any shortness of breath this morning. He does report the presence of ongoing back pain. Objective: The patient's most recent lab work, culture data and imaging studies have all been personally reviewed. Surface echocardiogram revealed normal LV function with an ejection fraction of 60%. The RV was noted to be moderately dilated with mild to moderate global RV systolic dysfunction. Right ventricular systolic pressure was unable to be estimated. General: Alert, Cooperative, No apparent distress, - - Resting comfortably in bed. HEENT: Atraumatic, PERRLA, Normocephalic Oral: No Gingival or Mucosal Lesions/ Ulcerations Neck: Supple, No Nodes, Trachea Midline Lungs: Normal air movement Cardiovascular: Regular rate, Regular Rhythm Abdomen: Bowel Sounds Present, Soft Extremities: No clubbing, No cyanosis, No edema Skin: No breakdown Musculoskeletal: No Muscle Wasting Lymphatic: No Cervical, Supraclavicular, or Inguinal Adenopathy Neurological: Cranial nerves II-XII grossly intact, Neuro grossly intact Psych/Mental Status: Alert and oriented to time, place, person, mood and affect Vital Signs Temp Pulse Resp BP Pulse Ox 98.2 F 92 13 127/98 H 93 07/10/20 04:00 07/10/20 05:00 07/10/20 05:00 07/10/20 05:00 07/10/20 05:00 Oxygen Flow Rate (L/min) 6 Oxygen Delivery Method Nasal Cannula Weight: 251 lb 15.814 oz Body Mass Index (BMI) 35.1 Intake and Output for Last 24 Hours 07/08/20 07/09/20 07/10/20 23:59 23:59 23:59 Intake Total 3935.76 / 4055.76 1140 / 1140 Output Total 2475 / 2675 700 / 700 Balance 1460.76 / 1380.76 440 / 440 Labs (Last 48 Hours) 07/09/20 07/09/20 07/09/20 07:30 07:30 07:30 WBC 11.9 H RBC 5.27 Hgb 16.0 Hct 46.8 MCV 88.8 MCH 30.4 MCHC 34.2 RDW Std Deviation 39.7 RDW Coeff of Uriel 12.2 Plt Count 175 MPV 9.6 Immature Gran % (Auto) 0.600 Neut % (Auto) 81.7 H Lymph % (Auto) 11.3 L [place] % (Auto) 5.0 Eos % (Auto) 1.1 Baso % (Auto) 0.3 Absolute Neuts (auto) 9.8 H Absolute Lymphs (auto) 1.35 Nucleated RBC % 0 Platelet Estimate ADEQUATE Plt Morphology Comment LARGE PT 13.6 INR 1.1 APTT 21.5 L Sodium 139 Potassium 3.7 Chloride 101 Carbon Dioxide 27.0 Anion Gap 11 BUN 15 Creatinine 1.58 H Estim Creat Clear Calc 55.32 Est GFR (MDRD) Af Amer 60 Est GFR (MDRD) Non-Af 50 L BUN/Creatinine Ratio 9.5 L Glucose 183 H Calcium 10.8 H Troponin I 0.212 H B-Natriuretic Peptide 07/09/20 07/09/20 07/09/20 07:30 13:55 16:30 WBC RBC Hgb 14.8 Hct 43.0 MCV MCH MCHC RDW Std Deviation RDW Coeff of Uriel Plt Count MPV Immature Gran % (Auto) Neut % (Auto) Lymph % (Auto) [place] % (Auto) Eos % (Auto) Baso % (Auto) Absolute Neuts (auto) Absolute Lymphs (auto) Nucleated RBC % Platelet Estimate Plt Morphology Comment PT INR APTT 73.9 H Sodium Potassium Chloride Carbon Dioxide Anion Gap BUN Creatinine Estim Creat Clear Calc Est GFR (MDRD) Af Amer Est GFR (MDRD) Non-Af BUN/Creatinine Ratio Glucose Calcium Troponin I B-Natriuretic Peptide 10.5 07/09/20 07/10/20 07/10/20 20:30 02:30 04:30 WBC 9.6 RBC 4.64 Hgb 14.0 Hct 41.3 MCV 89.0 MCH 30.2 MCHC 33.9 RDW Std Deviation 39.9 RDW Coeff of Uriel 12.3 Plt Count 143 L MPV 8.8 Immature Gran % (Auto) 0.300 Neut % (Auto) 73.3 H Lymph % (Auto) 15.1 L [place] % (Auto) 9.7 Eos % (Auto) 1.3 Baso % (Auto) 0.3 Absolute Neuts (auto) 7.0 Absolute Lymphs (auto) 1.44 Nucleated RBC % 0 Platelet Estimate Plt Morphology Comment PT INR APTT 62.6 H 67.0 H Sodium Potassium Chloride Carbon Dioxide Anion Gap BUN Creatinine Estim Creat Clear Calc Est GFR (MDRD) Af Amer Est GFR (MDRD) Non-Af BUN/Creatinine Ratio Glucose Calcium Troponin I B-Natriuretic Peptide 07/10/20 04:30 WBC RBC Hgb Hct MCV MCH MCHC RDW Std Deviation RDW Coeff of Uriel Plt Count MPV Immature Gran % (Auto) Neut % (Auto) Lymph % (Auto) [place] % (Auto) Eos % (Auto) Baso % (Auto) Absolute Neuts (auto) Absolute Lymphs (auto) Nucleated RBC % Platelet Estimate Plt Morphology Comment PT INR APTT Sodium 140 Potassium 3.8 Chloride 105 Carbon Dioxide 30.0 Anion Gap 5 BUN 12 Creatinine 1.34 H Estim Creat Clear Calc 71.80 Est GFR (MDRD) Af Amer 73 Est GFR (MDRD) Non-Af 60 BUN/Creatinine Ratio 9.0 L Glucose 117 H Calcium 8.7 Troponin I B-Natriuretic Peptide Clinical Impression(s) from Imaging Studies Chest CTA 07/09/20 07:12 IMPRESSION: Extensive bilateral pulmonary embolism. Electronically Signed: Nicholas Jones at 8:23 EST , Service support , Renal Ultrasound 07/09/20 16:33 IMPRESSION: 1. Normal ultrasound of the kidneys and urinary bladder. 2. Multiple gallstones. Electronically Signed: El Orozco MD at 18:48 EST , Service support , Medical Necessity - Tobacco Use Smoking Status: Former smoker Tobacco Use: Non-smoker Assessment/Plan All Active Problems Restrictive lung disease medication (Acute) Bilateral pulmonary embolism (Acute) Acute respiratory failure with hypoxia (Acute) Shortness of breath (Acute) Fever and neutropenia (Acute) RECOMMENDATIONS: 1. Okay from my perspective to transition the patient from a heparin infusion to either Eliquis or Xarelto. 2. Wean supplemental oxygen to maintain saturations at or above 90%. 3. Encourage incentive spirometer use and mobilize patient as tolerated. 4. The patient is medically stable for transfer out of the intensive care unit. 5. 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 Zhu, after discharge. IMPRESSIONS: 1. Acute hypoxemic respiratory failure secondary to submassive PE The patient presented to the hospital with rather acute onset shortness of breath having recently undergone elective outpatient surgery last week. The patient was subsequently found to be positive for submassive PE, with extensive clot burden noted on CTA chest. 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 Given the unprovoked nature of this event coupled with his extensive clot burden, he would likely best be served by systemic anticoagulation without plans for interruption. At this time, the patient can be transitioned from a continuous heparin infusion over to either Xarelto or Eliquis. Plan to continue to wean supplemental oxygen to maintain saturations at or above 90%. Encourage incentive spirometer use and mobilize patient as tolerated. The patient plans to follow-up with Dr. Zhu in the very near future regarding the need for lifelong anticoagulation. 2. Acute kidney injury Improved. Likely prerenal in etiology. Continue to monitor urine output. No current indication for renal replacement therapy. 3. History of testicular nonseminoma cancer Complicates care, management, recovery and prognosis. Continue outpatient follow-up with hematology/oncology as scheduled. CODE status: Discussed CODE status at length including difference between FULL code, DNR-CCA and DNR-CC status. Following discussions about the differences in these status, patient requested FULL CODE STATUS. This note was generated with [employer] dictation software. It may contain incorrect words, spelling, and punctuation that were not noted in checking the note before signing. Inpatient E&M: 88686 [facility] Hosp L3
--- NOTE | 2020-07-10 08:01 | PCM.PROGNOTE ---
Patient Problems: Active and Suspected Problems Lung cancer (Suspected) Restrictive lung disease medication (Acute) Bilateral pulmonary embolism (Acute) Acute respiratory failure with hypoxia (Acute) Shortness of breath (Acute) Subjective: Patient was seen and examined today in ICU, yesterday he complained of flank pain, ultrasound of the kidneys was obtained which showed no abnormalities other than gallstones. Patient currently is on nasal cannula oxygen and appears comfortable. Patient does not complain of any fevers or chills, he has no complaints of any chest pain. - Physical Exam Vitals/I&O's: Vital Signs Temp Pulse Resp BP Pulse Ox 98.2 F 94 16 127/77 H 96 07/10/20 04:00 07/10/20 07:00 07/10/20 07:00 07/10/20 07:00 07/10/20 07:00 Oxygen Flow Rate (L/min) 6 Oxygen Delivery Method Nasal Cannula Weight: 115.3 kg Body Mass Index (BMI) 35.1 Intake and Output for Last 24 Hours 07/08/20 07/09/20 07/10/20 23:59 23:59 23:59 Intake Total 3935.76 / 4055.76 1595 / 1595 Output Total 2475 / 2675 900 / 900 Balance 1460.76 / 1380.76 695 / 695 General: Alert, Oriented x3, Cooperative, No apparent distress, Well developed HEENT: Atraumatic, PERRLA, EOMI, Normocephalic Oral: Moist Mucosa Neck: Supple, No JVD, Trachea Midline, Thyroid Normal Size and Texture Lungs: Clear to auscultation, Normal air movement, No rhonchi, No wheeze, No rales Cardiovascular: Regular rate, Regular Rhythm, Normal S1, Normal S2, No murmurs, PMI Normal, No rub noted, No Gallop Abdomen: Bowel Sounds Present, Soft, Non Tender, Non-Distended Extremities: No clubbing, No cyanosis, No edema, Capillary Refill Less than 3 Seconds Skin: No rashes, No breakdown Musculoskeletal: No Tenderness to Palpation of Joints or Extremities Neurological: Cranial nerves II-XII grossly intact, Neuro grossly intact, Sensory exam intact to light touch and pain, Coordination normal Psych/Mental Status: Normal Affect, Appropriate, Alert and oriented to time, place, person, mood and affect Laboratory Results 07/09/20 07:30: Platelet Estimate ADEQUATE, Plt Morphology Comment LARGE 07/09/20 07:30: PT 13.6, INR 1.1, APTT 21.5 L 07/09/20 07:30: Sodium 139, Potassium 3.7, Chloride 101, Carbon Dioxide 27.0, Anion Gap 11, BUN 15, Creatinine 1.58 H, Estim Creat Clear Calc 55.32, Est GFR (MDRD) Af Amer 60, Est GFR (MDRD) Non-Af 50 L, BUN/Creatinine Ratio 9.5 L, Glucose 183 H, Calcium 10.8 H, Troponin I 0.212 H 07/09/20 07:30: B-Natriuretic Peptide 10.5 07/09/20 13:55: APTT 73.9 H 07/09/20 16:30: Hgb 14.8, Hct 43.0 07/09/20 20:30: APTT 62.6 H 07/10/20 02:30: APTT 67.0 H 07/10/20 04:30: WBC 9.6, RBC 4.64, Hgb 14.0, Hct 41.3, MCV 89.0, MCH 30.2, MCHC 33.9, RDW Std Deviation 39.9, RDW Coeff of Uriel 12.3, Plt Count 143 L, MPV 8.8, Immature Gran % (Auto) 0.300, Neut % (Auto) 73.3 H, Lymph % (Auto) 15.1 L, [place] % (Auto) 9.7, Eos % (Auto) 1.3, Baso % (Auto) 0.3, Absolute Neuts (auto) 7.0, Absolute Lymphs (auto) 1.44, Nucleated RBC % 0 07/10/20 04:30: Sodium 140, Potassium 3.8, Chloride 105, Carbon Dioxide 30.0, Anion Gap 5, BUN 12, Creatinine 1.34 H, Estim Creat Clear Calc 71.80, Est GFR (MDRD) Af Amer 73, Est GFR (MDRD) Non-Af 60, BUN/Creatinine Ratio 9.0 L, Glucose 117 H, Calcium 8.7 Current Medications Acetaminophen (Acetaminophen 325 Mg Tablet) 650 mg PO Q6H PRN PRN PRN Reason: Pain Score 1-10/Temp > 100.7 F Calcium Carbonate (Calcium Carbonate 500 Mg Tablet) 1,000 mg PO Q4H PRN PRN PRN Reason: dyspepsia/reflux Last Admin: 07/09/20 20:16 Dose: 1,000 mg Documented by: Heparin Sodium (Porcine) (Heparin Injection (Vial) 5,000 Unit/Ml Vial) 0 unit IV UD PRN; Protocol PRN Reason: dose adjustment Heparin Sodium/Dextrose () 25,000 units in 250 mls @ 16 mls/hr IV .[id number] [facility]; Protocol Last Admin: 07/09/20 22:43 Dose: 1,600 units/hr, 16 mls/hr Documented by: Morphine Sulfate (Morphine 4 Mg/Ml Syringe) 4 mg IV Q3H PRN PRN PRN Reason: Pain Score 6-10 Last Admin: 07/10/20 04:24 Dose: 4 mg Documented by: Ondansetron HCl (Ondansetron 4 Mg/2 Ml Vial) 4 mg IV Q8H PRN PRN PRN Reason: NAUSEA/VOMITING Last Admin: 07/09/20 19:39 Dose: 4 mg Documented by: Sodium Chloride (0.9% Saline Lock 10 Ml Syringe) 10 - 40 ml IV UD PRN PRN Reason: SALINE FLUSH Last Admin: 07/10/20 05:08 Dose: 10 ml Documented by: Medical Necessity - Tobacco Use Smoking Status: Former smoker Tobacco Use: Non-smoker Assessment/Plan All Active Problems Restrictive lung disease medication (Acute) Bilateral pulmonary embolism (Acute) Acute respiratory failure with hypoxia (Acute) Shortness of breath (Acute) Fever and neutropenia (Acute) #1 acute bilateral pulmonary emboli-patient appears stable for transfer to PCU, he will be transitioned over to oral anticoagulants #2 acute hypoxic respiratory failure secondary to #1-patient's O2 sat will be monitored, currently he is on nasal cannula oxygen #3 elevated creatinine-probably secondary to dehydration, continue IV fluids, recheck labs #4 history of restrictive lung disease-secondary to medication given for lung cancer Inpatient E&M: [id number] [facility] Hosp L2
[2020-07-10 09:27] LABS: Partial Thromboplast Time 70.4 Seconds (24.1-36.2)
--- NOTE | 2020-07-10 10:06 | NURSING ---
report given to Gagan VO on patient.
--- NOTE | 2020-07-10 13:35 | CASEMGMT ---
This RN CM to room to complete CM assessment and pt is sleeping soundly at this time. Pt does not awaken to verbal stimuli or knock on the door at this time. Will attempt later. SStaten RN CM
[2020-07-10] MEDS: HEPARIN/D5w 25,000 UNITS 25,000 UNITS/250 ML IV.SOLN. 16 UNITS IV (15:15)
--- NOTE | 2020-07-10 18:33 | CT_ITS ---
STUDY: CT ABDOMEN AND PELVIS WITHOUT CONTRAST REASON FOR EXAM: Male, 50 years old. FLANK PAIN. Extensive bilateral pulmonary emboli seen on recent chest CTA RADIATION DOSAGE (If Supplied By Facility): CTDIvol = ( 17.17 ) mGy, DLP = ( 1025.10 ) mGycm TECHNIQUE: Transaxial images were obtained from the dome of the diaphragm to the symphysis pubis without oral contrast, and without intravenous contrast. Sagittal and coronal images were reconstructed. Individualized dose optimization techniques were used for this CT. COMPARISON: CTA of the chest dated July 09, 2020. CT of abdomen and pelvis dated May 01, 2016 FINDINGS: Bibasilar atelectasis is present, right greater than left. Focal parenchymal infarcts or possibility given the extensive pulmonary emboli seen on the recent study. Upper midline intra-abdominal hernia mesh is present a small residual hernia is present measuring 4.4 cm in diameter. Healed midline surgical incision tract of the anterior abdominal wall. A small to moderate-sized 6.18 cm fluid collection is present in the subcutaneous fat to the left side of the umbilicus likely related to the prior hernia repair and likely represents a postoperative seroma. Postoperative mesenteric edema is present throughout the abdomen and pelvis. No intra-abdominal fluid collection or free air. Normal liver. Numerous gallstones are present. Normal spleen. Normal pancreas. Normal bilateral adrenal glands. 2 mm calyceal stone seen in the lower pole of the left kidney. 3 mm calyceal stones seen in the midpole of the right kidney. Normal visualized stomach. Normal small intestine. A surgical clip is seen in the lower left abdomen posterior to the rectus abdominis. The appendix is visualized and appears normal. No bowel dilatation or obstruction. A few colonic diverticula are present. There is diffuse atherosclerotic calcification of the abdominal aorta, without a demonstrated aneurysm. Normal inferior vena cava. Normal retroperitoneum. Normal urinary bladder. Small fat-containing left inguinal hernia reidentified. There are diffuse degenerative changes of the visualized lumbar spine. CT/Abdomen/Pelvis without Cont IMPRESSION: 1. Bibasilar atelectasis is present, right greater than left. Focal parenchymal infarcts or possibility given the extensive pulmonary emboli seen on the recent study. 2. Upper midline intra-abdominal hernia mesh is present a small residual hernia is present measuring 4.4 cm in diameter. Healed midline surgical incision tract of the anterior abdominal wall. 3. A small to moderate-sized 6.18 cm fluid collection is present in the subcutaneous fat to the left side of the umbilicus likely related to the prior hernia repair and likely represents a postoperative seroma. Postoperative mesenteric edema is present throughout the abdomen and pelvis. No intra-abdominal fluid collection or free air. 4. Bilateral nonobstructing kidney stones. 5. Numerous gallstones 6. Colonic diverticulosis Electronically Signed: El Orozco MD at 19:23 EST , Service support ,
[2020-07-10] MEDS: Enoxaparin 120 MG/0.8 ML Syringe SC (19:14)
[2020-07-10] MEDS: Calcium Carbonate 500 MG Tablet 1000 MG PO (20:10)
[2020-07-11] VITALS (11 sets, daily range): BP systolic 138–152; BP diastolic 80–96; PULSE 76–99; RESP 17–20; TEMP 36.8–37.3; O2SAT 94–98
[2020-07-11] MEDS: oxyCODONE 5 MG Tablet PO (02:07)
[2020-07-11] MEDS: Acetaminophen 325 MG Tablet 650 MG PO ×2 (02:07→14:43)
--- NOTE | 2020-07-11 02:17 | NURSING ---
pt reports he has walked in his room x3 [facility] and is using his incentive spirometer
[2020-07-11] MEDS: Enoxaparin 120 MG/0.8 ML Syringe SC (05:39)
--- NOTE | 2020-07-11 10:21 | PCM.PN.PUL ---
Patient Problems: Active and Suspected Problems Lung cancer (Suspected) Restrictive lung disease medication (Acute) Bilateral pulmonary embolism (Acute) Acute respiratory failure with hypoxia (Acute) Shortness of breath (Acute) Subjective: The patient was seen and examined at the bedside this morning. Events from the last 24 hours have been reviewed. The patient is currently afebrile, hemodynamically stable and maintaining appropriate oxygen saturations on 2 L/min via nasal cannula. The patient has been transitioned to Lovenox twice daily at this time. Objective: The patient's most recent lab work, culture data and imaging studies have all been personally reviewed. Surface echocardiogram revealed normal LV function with an ejection fraction of 60%. The RV was noted to be moderately dilated with mild to moderate global RV systolic dysfunction. Right ventricular systolic pressure was unable to be estimated. - Physical Exam Vitals/I&O's: Vital Signs Temp Pulse Resp BP Pulse Ox 98.5 F 89 17 152/87 H 97 07/11/20 07:47 07/11/20 07:47 07/11/20 07:47 07/11/20 07:47 07/11/20 08:12 Oxygen Flow Rate (L/min) 2 Oxygen Delivery Method Nasal Cannula Weight: 253 lb 8.505 oz Body Mass Index (BMI) 35.1 Intake and Output for Last 24 Hours 07/09/20 07/10/20 07/11/20 23:59 23:59 23:59 Intake Total 3935.76 / 4055.76 2929.00 / 2929.00 Output Total 2475 / 2675 1750 / 1750 150 / 150 Balance 1460.76 / 1380.76 1179.00 / 1179.00 -150 / -150 General: Alert, No apparent distress HEENT: Atraumatic, Normocephalic Oral: Moist Mucosa Neck: Supple Lungs: Normal air movement, No rhonchi, No wheeze, No rales Cardiovascular: Regular rate, Regular Rhythm Abdomen: Bowel Sounds Present, Soft Extremities: No clubbing, No cyanosis, No edema Skin: No breakdown Musculoskeletal: No Tenderness to Palpation of Joints or Extremities Lymphatic: No Cervical, Supraclavicular, or Inguinal Adenopathy Neurological: Cranial nerves II-XII grossly intact, Neuro grossly intact Psych/Mental Status: Alert and oriented to time, place, person, mood and affect Labs (Last 48 Hours) 07/09/20 07/09/20 07/09/20 13:55 16:30 20:30 WBC RBC Hgb 14.8 Hct 43.0 MCV MCH MCHC RDW Std Deviation RDW Coeff of Uriel Plt Count MPV Immature Gran % (Auto) Neut % (Auto) Lymph % (Auto) [place] % (Auto) Eos % (Auto) Baso % (Auto) Absolute Neuts (auto) Absolute Lymphs (auto) Nucleated RBC % APTT 73.9 H 62.6 H Sodium Potassium Chloride Carbon Dioxide Anion Gap BUN Creatinine Estim Creat Clear Calc Est GFR (MDRD) Af Amer Est GFR (MDRD) Non-Af BUN/Creatinine Ratio Glucose Calcium 07/10/20 07/10/20 07/10/20 02:30 04:30 04:30 WBC 9.6 RBC 4.64 Hgb 14.0 Hct 41.3 MCV 89.0 MCH 30.2 MCHC 33.9 RDW Std Deviation 39.9 RDW Coeff of Uriel 12.3 Plt Count 143 L MPV 8.8 Immature Gran % (Auto) 0.300 Neut % (Auto) 73.3 H Lymph % (Auto) 15.1 L [place] % (Auto) 9.7 Eos % (Auto) 1.3 Baso % (Auto) 0.3 Absolute Neuts (auto) 7.0 Absolute Lymphs (auto) 1.44 Nucleated RBC % 0 APTT 67.0 H Sodium 140 Potassium 3.8 Chloride 105 Carbon Dioxide 30.0 Anion Gap 5 BUN 12 Creatinine 1.34 H Estim Creat Clear Calc 71.80 Est GFR (MDRD) Af Amer 73 Est GFR (MDRD) Non-Af 60 BUN/Creatinine Ratio 9.0 L Glucose 117 H Calcium 8.7 07/10/20 08:20 WBC RBC Hgb Hct MCV MCH MCHC RDW Std Deviation RDW Coeff of Uriel Plt Count MPV Immature Gran % (Auto) Neut % (Auto) Lymph % (Auto) [place] % (Auto) Eos % (Auto) Baso % (Auto) Absolute Neuts (auto) Absolute Lymphs (auto) Nucleated RBC % APTT 70.4 H Sodium Potassium Chloride Carbon Dioxide Anion Gap BUN Creatinine Estim Creat Clear Calc Est GFR (MDRD) Af Amer Est GFR (MDRD) Non-Af BUN/Creatinine Ratio Glucose Calcium Clinical Impression(s) from Imaging Studies Chest CTA 07/09/20 07:12 IMPRESSION: Extensive bilateral pulmonary embolism. Electronically Signed: Nicholas Karen, at 8:23 EST , Service support , Renal Ultrasound 07/09/20 16:33 IMPRESSION: 1. Normal ultrasound of the kidneys and urinary bladder. 2. Multiple gallstones. Electronically Signed: El Orozco MD at 18:48 EST , Service support , Abdomen/Pelvis CT 07/10/20 18:33 IMPRESSION: 1. Bibasilar atelectasis is present, right greater than left. Focal parenchymal infarcts or possibility given the extensive pulmonary emboli seen on the recent study. 2. Upper midline intra-abdominal hernia mesh is present a small residual hernia is present measuring 4.4 cm in diameter. Healed midline surgical incision tract of the anterior abdominal wall. 3. A small to moderate-sized 6.18 cm fluid collection is present in the subcutaneous fat to the left side of the umbilicus likely related to the prior hernia repair and likely represents a postoperative seroma. Postoperative mesenteric edema is present throughout the abdomen and pelvis. No intra-abdominal fluid collection or free air. 4. Bilateral nonobstructing kidney stones. 5. Numerous gallstones 6. Colonic diverticulosis Electronically Signed: El Orozco MD at 19:23 EST , Service support , Current Medications Acetaminophen (Acetaminophen 325 Mg Tablet) 650 mg PO Q6H PRN PRN PRN Reason: Pain Score 1-10/Temp > 100.7 F Last Admin: 07/11/20 02:07 Dose: 650 mg Documented by: Calcium Carbonate (Calcium Carbonate 500 Mg Tablet) 1,000 mg PO Q4H PRN PRN PRN Reason: dyspepsia/reflux Last Admin: 07/10/20 20:10 Dose: 1,000 mg Documented by: Enoxaparin Sodium (Enoxaparin 120 Mg/0.8 Ml Syringe) 120 mg SC Q12@0600,1800 [place] Last Admin: 07/11/20 05:39 Dose: 120 mg Documented by: Ondansetron HCl (Ondansetron 4 Mg/2 Ml Vial) 4 mg IV Q8H PRN PRN PRN Reason: NAUSEA/VOMITING Last Admin: 07/09/20 19:39 Dose: 4 mg Documented by: Oxycodone HCl (Oxycodone 5 Mg Tablet) 5 mg PO Q4H PRN PRN PRN Reason: Pain Score 6-10 Last Admin: 07/11/20 02:07 Dose: 5 mg Documented by: Sodium Chloride (0.9% Saline Lock 10 Ml Syringe) 10 - 40 ml IV UD PRN PRN Reason: SALINE FLUSH Last Admin: 07/10/20 19:15 Dose: 10 ml Documented by: Medical Necessity - Tobacco Use Smoking Status: Former smoker Tobacco Use: Non-smoker Assessment/Plan All Active Problems Restrictive lung disease medication (Acute) Bilateral pulmonary embolism (Acute) Acute respiratory failure with hypoxia (Acute) Shortness of breath (Acute) Fever and neutropenia (Acute) RECOMMENDATIONS: 1. Okay from my perspective to discharge on either Eliquis or Xarelto. 2. Wean supplemental oxygen to maintain saturations at or above 90%. 3. Encourage incentive spirometer use and mobilize patient as tolerated. 4. The patient plans to follow-up with his loan operations specialist, Dr. Zhu, after discharge. 5. Anticipate home-going supplemental oxygen need. IMPRESSIONS: 1. Acute hypoxemic respiratory failure secondary to submassive PE The patient presented to the hospital with rather acute onset shortness of breath having recently undergone elective outpatient surgery last week. The patient was subsequently found to be positive for submassive PE, with extensive clot burden noted on CTA chest. 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 Given the unprovoked nature of this event coupled with his extensive clot burden, he would likely best be served by systemic anticoagulation without plans for interruption. Recommend discharge home on either Eliquis or Xarelto along with supplemental oxygen to maintain saturations at or above 90%. Encourage incentive spirometer use and mobilize patient as tolerated. The patient plans to follow-up with Dr. Zhu in the very near future regarding the need for lifelong anticoagulation. 2. Acute kidney injury Improved. Likely prerenal in etiology. Continue to monitor urine output. No current indication for renal replacement therapy. 3. History of testicular nonseminoma cancer Complicates care, management, recovery and prognosis. Continue outpatient follow-up with hematology/oncology as scheduled. CODE status: Discussed CODE status at length including difference between FULL code, DNR-CCA and DNR-CC status. Following discussions about the differences in these status, patient requested FULL CODE STATUS. This note was generated with [employer] dictation software. It may contain incorrect words, spelling, and punctuation that were not noted in checking the note before signing. Inpatient E&M: [id number] Subs Hosp L2
--- NOTE | 2020-07-11 11:11 | CASEMGMT ---
TAVO BURTON assessment: Phone interview for initial transition planning/care coordination assessment. TAVO BURTON introduced self and role at [facility], pt voices understanding and consents to assessment at this time. Pt is A/Ox4 at this time and answers all questions appropriately at this time. Care providers, pharmacy, and demographics verified at this time. Presentation: Pt s/p surgery last thursday and woke up SOB with sat 67% Admitting dx: PE, resp failure PCP: Dominic Specialists: Tatyana, surgeon Preferred Pharmacy: [facility]ob[facility] Cm/[facility] Insurance: [employer] Prescription Benefit: [employer]-pt provided Eliquis co-pay card to activate and then will be tubed down to [facility] retail pharmacy as Dr. Forrest already called script to them. Living Will/HPOA: Pt states has LW/HPOA and is aware that they are not on file at [facility] at this time. Pt states, Alissa Neal, is HPOA. LNOK: Juany Verma, mother; Guerita Bradford, sig other Living Arrangements: Pt states lives with sig other in home and states no concerns at home at this time. Pt states is independent with all ADL's. Transportation: Pt states drives self and states no transportation concerns at this time. DME/HHC: Pt states no current DME or need for any at this time. Pt states no preference for DME company, if needed. Pt states no hx of HHC Or SNF in the past. Pt states no concerns with going home at time of discharge. 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 Pt states does not smoke cigarettes but does occasionally drink ETOH. Pt states no further concerns/needs at this time. CM to follow for home oxygen need and any further discharge planning/needs. Advised pt to ask for CM if any further questions/concerns/needs arise, voices understanding. Pt Goal: Home Plan: Home [place] TAVO BURTON
--- NOTE | 2020-07-11 12:32 | CASEMGMT ---
TAVO Beal was given the [employer] co-pay card to give to patient to activate. Bing BAPTISTE MSW
--- NOTE | 2020-07-11 13:50 | PN_ITS ---
Patient Problems: Active and Suspected Problems Lung cancer (Suspected) Restrictive lung disease medication (Acute) Bilateral pulmonary embolism (Acute) Acute respiratory failure with hypoxia (Acute) Shortness of breath (Acute) Subjective: Patient was seen and examined today, he is still requiring supplemental oxygen at this time. Patient still complains of some lower back discomfort-his CT of his abdomen and pelvis did not show any obvious pathology that would account for his symptoms. Patient does not complain of any chest discomfort today. Objective: General: Alert, Oriented x3, Cooperative, No apparent distress, Well developed HEENT: Atraumatic, PERRLA, EOMI, Normocephalic Oral: Moist Mucosa Neck: Supple, No JVD, Trachea Midline, Thyroid Normal Size and Texture Lungs: Clear to auscultation, Normal air movement, No rhonchi, No wheeze, No rales Cardiovascular: Regular rate, Regular Rhythm, Normal S1, Normal S2, No murmurs, PMI Normal, No rub noted, No Gallop Abdomen: Bowel Sounds Present, Soft, Non Tender, Non-Distended Extremities: No clubbing, No cyanosis, No edema, Capillary Refill Less than 3 Seconds Skin: No rashes, No breakdown Musculoskeletal: No Tenderness to Palpation of Joints or Extremities Neurological: Cranial nerves II-XII grossly intact, Neuro grossly intact, Sensory exam intact to light touch and pain, Coordination normal Psych/Mental Status: Normal Affect, Appropriate, Alert and oriented to time, place, person, mood and affect - Physical Exam Vitals/I&O's: Vital Signs Temp Pulse Resp BP Pulse Ox 98.5 F 86 17 152/87 H 97 07/11/20 07:47 07/11/20 13:20 07/11/20 07:47 07/11/20 07:47 07/11/20 08:12 Oxygen Flow Rate (L/min) 2 Oxygen Delivery Method Nasal Cannula Weight: 115 kg Body Mass Index (BMI) 35.1 Intake and Output for Last 24 Hours 07/09/20 07/10/20 07/11/20 23:59 23:59 23:59 Intake Total 3935.76 / 4055.76 2929.00 / 2929.00 600 / 600 Output Total 2475 / 2675 1750 / 1750 150 / 150 Balance 1460.76 / 1380.76 1179.00 / 1179.00 450 / 450 Current Medications Acetaminophen (Acetaminophen 325 Mg Tablet) 650 mg PO Q6H PRN PRN PRN Reason: Pain Score 1-10/Temp > 100.7 F Last Admin: 07/11/20 02:07 Dose: 650 mg Documented by: Calcium Carbonate (Calcium Carbonate 500 Mg Tablet) 1,000 mg PO Q4H PRN PRN PRN Reason: dyspepsia/reflux Last Admin: 07/10/20 20:10 Dose: 1,000 mg Documented by: Enoxaparin Sodium (Enoxaparin 120 Mg/0.8 Ml Syringe) 120 mg SC Q12@0600,1800 [place] Last Admin: 07/11/20 05:39 Dose: 120 mg Documented by: Ondansetron HCl (Ondansetron 4 Mg/2 Ml Vial) 4 mg IV Q8H PRN PRN PRN Reason: NAUSEA/VOMITING Last Admin: 07/09/20 19:39 Dose: 4 mg Documented by: Oxycodone HCl (Oxycodone 5 Mg Tablet) 5 mg PO Q4H PRN PRN PRN Reason: Pain Score 6-10 Last Admin: 07/11/20 02:07 Dose: 5 mg Documented by: Sodium Chloride (0.9% Saline Lock 10 Ml Syringe) 10 - 40 ml IV UD PRN PRN Reason: SALINE FLUSH Last Admin: 07/10/20 19:15 Dose: 10 ml Documented by: Medical Necessity - Tobacco Use Smoking Status: Former smoker Tobacco Use: Non-smoker Assessment/Plan All Active Problems Restrictive lung disease medication (Acute) Bilateral pulmonary embolism (Acute) Acute respiratory failure with hypoxia (Acute) Shortness of breath (Acute) Fever and neutropenia (Acute) #1 acute bilateral pulmonary emboli-patient appears stable at this time #2 acute hypoxic respiratory failure secondary to #1-patient's O2 sat will be monitored, currently he is on nasal cannula oxygen #3 elevated creatinine-probably secondary to dehydration, continue IV fluids, recheck labs #4 history of restrictive lung disease-secondary to medication given for lung cancer I will transition the patient over to [facility] E&M: [id number] [facility] Hosp L2
[2020-07-11] MEDS: APIXABAN 5 MG TABLET 10 MG PO (18:26)
[2020-07-12] VITALS (7 sets, daily range): BP systolic 129–139; BP diastolic 71–82; PULSE 77–81; RESP 18–20; TEMP 36.8–37.1; O2SAT 91–96
[2020-07-12] MEDS: Calcium Carbonate 500 MG Tablet 1000 MG PO (00:37)
[2020-07-12] MEDS: Acetaminophen 325 MG Tablet 650 MG PO (00:40)
--- NOTE | 2020-07-12 08:04 | DCINST_ITS ---
- Discharge Diagnoses Current Active Problems: Current Active and Chronic Problems Restrictive lung disease medication (Acute) Bilateral pulmonary embolism (Acute) Acute respiratory failure with hypoxia (Acute) Shortness of breath (Acute) You will use the following diet at home:: No restrictions Your food should be the consistency of: Regular Your liquids should be the consistency of: Regular/Thin Discharge Activity: Return to Normal Activity Return to work on:: 07/23/20 Weight Bearing Status: Full weight bearing Additional Instructions: DO NOT TAKE ALLEVE, ADVIL, ASPIRIN, OR ANY ARTHRITIS MEDICATION WHILE ON ELIQUIS Allergies/Adverse Reactions: Allergies No Known Allergies Allergy (Verified 07/09/20 07:15) Medications to take at Discharge Apixaban [Eliquis] 5 mg PO BID #60 tab 07/12/20 Apixaban [Eliquis] 10 mg PO BID #28 tab 07/12/20 Hydrocodone Bitart/Apap 5-325 [[place] 5MG-325MG] 1 tab PO Q4H PRN PRN 7 Days #20 tab 07/12/20 The following prescriptions were given: Apixaban [Eliquis] 5 mg PO BID #60 tab Transmission Status: Pending to [facility] Apixaban [Eliquis] 10 mg PO BID #28 tab Transmission Status: Pending to [facility] Hydrocodone Bitart/Apap 5-325 [[place] 5MG-325MG] 1 tab PO Q4H PRN PRN 7 Days #20 tab PRN Reason: Pain Transmission Status: Sent to [facility] Primary Care Physician: Connor Alfaro MD [Primary Care Provider] - Please follow up with your Primary Care Physician in: IN 1-2 WEEKS Test Results: Test results from this visit will be discussed in further detail at your follow- up appointment, if applicable. Please Follow Up With: Alfred Zhu MD When: IN 3 WEEKS Please Follow Up With: Tay Calvin DO When: IN 2 WEEKS
[2020-07-12] MEDS: APIXABAN 5 MG TABLET 10 MG PO (09:19)
--- NOTE | 2020-07-12 09:27 | CASEMGMT ---
Patient has 2 separate prescriptions for Eliquis. One of which was already called in to [facility] and [facility] SW spoke with patient and he is ok with all of his scripts getting filled at [facility]. He has the $10 co-pay card and the 30 day free card. Per pharmacy he can use both. He is going to be tested for O2. Bing BAPTISTE MSW
--- NOTE | 2020-07-12 10:39 | PHA.DC.MC ---
Pharmacy Service has performed discharge medication reconciliation and counseling for this patient. 1. APIXABAN 10MG PO BID X 1 WEEK, THEN 5MG PO BID THEREAFTER 2. HYDROCODONE/ACETAMINOPHEN 5/325MG 1T PO Q4H PRN PAIN The patient's discharge medication list was reviewed for discrepancies and discrepancies were resolved. Home Medications Apixaban [Eliquis] 5 mg PO BID #60 tab 07/12/20 Apixaban [Eliquis] 10 mg PO BID #28 tab 07/12/20 Hydrocodone Bitart/Apap 5-325 [[place] 5MG-325MG] 1 tab PO Q4H PRN PRN 7 Days #20 tab 07/12/20 The patient was counseled on the following discharge medications and changes in medications for homegoing were reviewed. The Reason for Use, instructions for use, and potential side effects were reviewed for all new medications. The patient's questions regarding all of their medications were answered. The patient was able to verbally demonstrate an understanding of their discharge medications.
--- NOTE | 2020-07-12 12:54 | NURSING ---
Right subclavian line dc'd tip intact, 3 sutures removed.. Pressure held x 5minutes, Vaseline guaze applied with 2x2 dressingg and secured with tegaderm. Instructed to lay flat x 30 minutes.
--- NOTE | 2020-07-12 13:35 | CASEMGMT ---
Per Chelsey VO, pt does not qualify for home oxygen at this time. Pt ready for discharge. Carla VO CM
--- NOTE | 2020-07-12 16:24 | DS.PCM_ITS ---
Discharge Date and Diagnosis - Problem List Patient Problems: Active and Suspected Problems Lung cancer (Suspected) Restrictive lung disease medication (Acute) Bilateral pulmonary embolism (Acute) Acute respiratory failure with hypoxia (Acute) Shortness of breath (Acute) Date of Admission: 07/09/20 Date of Discharge: 07/12/20 - Primary Discharge Diagnosis Acute Problems: Active Problems #1 acute bilateral pulmonary emboli #2 acute hypoxic respiratory failure secondary to #1 #3 elevated creatinine-probably secondary to dehydration #4 history of restrictive lung disease Suspected Problems: Suspected Problems Lung cancer (Suspected) Hospital Course and Treatment Operations: None Procedures: 2-D Echocardiogram Summary of Care Provided: The patient is a 50 year old M was seen in the emergency room at [facility] with a chief complaint of shortness of breath and chest pain. Patient had recently undergone abdominal surgery for hernia repair several days prior. Cup in the emergency room included an EKG which showed no evidence of injury pattern, pulse ox was low on room air and he was placed on supplemental oxygen. Nursing staff was unable to establish a peripheral IV and a central line was placed. CTA of the chest was performed which showed bilateral pulmonar y emboli. Patient was placed on IV heparin and he was admitted to ICU and seen in consultation by critical care. Patient's oxygen was able to be weaned slightly within the first 24 hours of his hospital stay. Patient underwent an echocardiogram, he was transferred to PCU for further care and he was maintained on a heparin drip and then transition to subcu Lovenox. On 07/12/2020, patient was seen and examined: On examination he appeared in good health and spirits. Vital signs as documented. Skin warm and dry and without overt rashes. Neck without JVD, neck was supple, trachea midline, thyroid was normal. Lungs clear bilaterally, normal air movement was noted. Heart exam notable for regular rhythm, normal sounds and absence of murmurs, rubs or gallops. Abdomen unremarkable and without evidence of organomegaly, masses, or abdominal aortic enlargement. Bowel sounds are present, abdomen is not distended. Extremities nonedematous, no cyanosis was noted, no clubbing was noted. Neuro: Cranial nerves II through XII are grossly intact, no focal motor deficits were noted, sensation to light touch and pinprick intact, motor exam 5/5 throughout. Psych: Patient is alert and oriented x3, he does not appear anxious or depressed, he does not appear agitated. He appears stable for discharge on 07/12/2020, patient was given a prescription for Eliquis to take as an outpatient and was cautioned against using any nonsteroidal anti-inflammatory agents such as Aleve, Advil, or aspirin. Patient Problems: Active and Suspected Problems Lung cancer (Suspected) Restrictive lung disease medication (Acute) Bilateral pulmonary embolism (Acute) Acute respiratory failure with hypoxia (Acute) Shortness of breath (Acute) - Physical Exam Vitals/I&O's: Vital Signs Temp Pulse Resp BP Pulse Ox 98.7 F 81 18 139/71 H 92 07/12/20 08:26 07/12/20 11:30 07/12/20 08:26 07/12/20 08:26 07/12/20 08:26 Oxygen Flow Rate (L/min) 2 Oxygen Delivery Method Room Air Weight: 111.2 kg Body Mass Index (BMI) 35.1 Intake and Output for Last 24 Hours 07/10/20 07/11/20 07/12/20 23:59 23:59 23:59 Intake Total 2929.00 / 2929.00 1750 / 1750 400 / 400 Output Total 1750 / 1750 150 / 150 Balance 1179.00 / 1179.00 1600 / 1600 400 / 400 Discharge Activity: Return to Normal Activity Return to work on:: 07/23/20 Weight Bearing Status: Full weight bearing Home Medications: Medications to take at Discharge Apixaban [Eliquis] 5 mg PO BID #60 tab 07/12/20 Apixaban [Eliquis] 10 mg PO BID #28 tab 07/12/20 Hydrocodone Bitart/Apap 5-325 [[place] 5MG-325MG] 1 tab PO Q4H PRN PRN 7 Days #20 tab 07/12/20 Following Prescriptions Were Given to Patient: Apixaban [Eliquis] 5 mg PO BID #60 tab Transmission Status: Received by [facility] Apixaban [Eliquis] 10 mg PO BID #28 tab Transmission Status: Received by [facility] Hydrocodone Bitart/Apap 5-325 [[place] 5MG-325MG] 1 tab PO Q4H PRN PRN 7 Days #20 tab PRN Reason: Pain Transmission Status: Received by [facility] Primary Care Physician: Connor Alfaro MD [Primary Care Provider] - Please follow up with your Primary Care Physician in: IN 1-2 WEEKS Please Follow Up With: Alfred Zhu MD When: IN 3 WEEKS Please Follow Up With: Tay Calvin DO When: IN 2 WEEKS Please Follow Up With: Connor Alfaro MD Disposition: Home Minutes spent on discharge:: 32 Patient Condition:: Stable Medical Necessity - Tobacco Use Smoking Status: Former smoker Tobacco Use: Non-smoker Meaningful Use Info Meaningful Use Diagnoses (Choose all that apply): VTE - VTE Anticoag overlap given w/in hospital stay or rx'd at dc?: No Pt receive overlap for 5 days?: No Reason overlap not ordered, prescribed, or given for 5 days: Treatment Not Indicated Inpatient E&M: [id number] [facility]
--- NOTE | 2020-07-13 16:10 | CASEMGMT ---
RN CM Discharge Phone Call DC Date 07/12/20 DC Disposition: Home DC Diagnosis: PE Intro role of CM to patient via phone. Pt states he is alive and breathing. No concerns and no questions re: instructions, medications or f/u. He has his prescriptions ordered. F/U appointments were made and pt has list. No care improvement suggestions were given. Chandana KAPOORN RN ACM
== END 2020-07-12 14:49 | disposition home or self-care (01) | DRG 175 ==
LOC: ED 07:58 → ICU 11:08 → PCU 07-10 10:14
PROVIDERS: Internal Medicine Critical Care Medicine; Admitting Provider Internal Medicine; Emergency Provider Emergency Medicine; PCP Family Medicine; Visit Provider Internal Medicine
DX: I26.99 Other pulmonary embolism without acute cor pulmonale (principal); J96.01 Acute respiratory failure with hypoxia; C34.90 Malignant neoplasm of unspecified part of unspecified bronchus or lung; J98.4 Other disorders of lung; E86.0 Dehydration; E66.9 Obesity, unspecified; Z68.38 Body mass index [BMI] 38.0-38.9, adult; Z85.118 Personal history of other malignant neoplasm of bronchus and lung; Z86.718 Personal history of other venous thrombosis and embolism; Z85.47 Personal history of malignant neoplasm of testis; Z87.891 Personal history of nicotine dependence
CPT/HCPCS: 71275; 74176; 76770; 80048; 83880; 84484; 85014; 85018; 85025; 85610; 85730; 93005; 93306; 99285; J7030; Q9957; Q9967; A4216; C1751; C8929; J2405

== ENCOUNTER 2021-06-25 16:35 | Outpatient (CLI) | payer OTHER, SELFPAY ==
--- NOTE | 2021-06-25 16:42 | NURSING ---
Pt received for infusion c/o nausea. Pt noted to be tachypneic and visibly anxious. VSS.
[2021-06-25] MEDS: 0.9% Saline Lock 10 ML Syringe IV (16:52)
[2021-06-25 16:54] VITALS: BP 118/74; PULSE 92; RESP 24; TEMP 38.3; O2SAT 97
[2021-06-25] MEDS: Acetaminophen 325 MG Tablet 650 MG PO (17:02)
[2021-06-25 18:02] VITALS: BP 112/69; PULSE 82; RESP 20; TEMP 36.6; O2SAT 97
[2021-06-25 19:00] VITALS: BP 139/84; PULSE 80; RESP 18; TEMP 37; O2SAT 96
== END 2021-06-25 19:05 | disposition home or self-care (01) ==
LOC: MS3OUT 16:35 → MS3 16:36
PROVIDERS: PCP Family Medicine; Referring Provider Nurse Practitioner Adult Health; Visit Provider Nurse Practitioner Adult Health
DX: Z23 Encounter for immunization (principal); U07.1 COVID-19
CPT/HCPCS: J7050; M0245; Q0245; A4216

== ENCOUNTER 2021-06-25 23:55 | Emergency (ER) | payer BC, SELFPAY ==
[2021-06-25 23:55] VITALS: BP 132/92; PULSE 98; RESP 26; TEMP 37.6; O2SAT 97; BMI 35.9
--- NOTE | 2021-06-26 00:10 | RAD_ITS ---
STUDY: X-RAY CHEST REASON FOR EXAM: Male, 51 years old. dyspnea TECHNIQUE: Single AP portable view of the chest. COMPARISON: 06/25/2016. FINDINGS: The lungs are underexpanded with right basilar atelectasis. Subtle hazy density within the left lower lobe is not excluded pneumonitis. Remainder of the lung carrizales are clear. No pleural effusion. Normal size heart. Normal mediastinum and rene. Normal visualized pulmonary arteries. Normal visualized aortic arch and descending thoracic aorta. Normal visualized thoracic spine. Normal visualized ribs, clavicles, and shoulders. There is no demonstrated abnormality of the visualized soft tissue structures of the upper abdomen. RAD/Chest 1 View (Portable) IMPRESSION: Right basilar atelectasis. Possible pneumonitis within the left lower lobe. Clinical correlation recommended. Electronically Signed: Patience Townsend MD at 1:03 EDT , Service support ,
--- NOTE | 2021-06-26 00:28 | NURSING ---
pt c/o chest pain. pt has hx of blood clots in October of this year. pt takes Eliquis BID. Dr. Mcdermott at bedside. Declines EKG at this time. pts capillary refill >3 seconds. ears are blue upon assessment.
[2021-06-26 00:31] LABS: Absolute Neutrophil Count 1.4 X10^3/uL (2.0-7.7); Basophil# 0.01 X10^3/uL; Basophil% 0.5 % (0-1); Hematocrit 51.5 % (40-54); Hemoglobin 17.9 g/dL (13.0-16.5); Lymphocyte % 27.4 % (19-41); Mean Corp Hgb Conc 34.8 g/dL (32-36); Mean Corpuscular Hgb 28.9 pg (27.0-32.0); Mean Corpuscular Volume 83.1 fL (80-94); Mean Platelet Vol. 9.4 fl (6.2-12.0); Monocyte# 0.19 X10^3/uL; Monocyte% 8.7 % (0-10); NRBC Flagged by Analyzer 0 % (0-5); Neutrophil # 1.38 X10^3/uL (2.7-7.7); Neutrophil % 62.9 % (47-70); POSITIVE DIFFERENTIAL YES; Platelet Count 115 K/mm3 (150-450); RBC Distribution Width CV 11.9 % (11.6-14.6); RBC Distribution Width SD 35.9 fl (35.1-43.9); White Blood Count 2.2 K/mm3 (4.4-11.0)
[2021-06-26 00:36] VITALS: PULSE 85; RESP 21; O2SAT 98
[2021-06-26 00:36] LABS: Differential Indicated SCAN CRITERIA MET
--- NOTE | 2021-06-26 00:38 | EX.ED.DYSGE1 ---
HPI History of Present Illness Chief Complaint: Chest Other Detail of Chief Complaint: Pinpoint right-sided chest pain lasting 1 to 2 seconds Informant: patient and spouse/S.O. Onset/Context/Timing Onset: Today Context: Sudden Onset Timing: Intermittent Quality: Sharp Location: Right parasternal region fifth sixth rib Current Severity: Gone Maximum Severity: Moderate Worsened by: Nothing Relieved by: Nothing Associated Symptoms Associated Symptoms: No associated symptoms Narrative Narrative: Patient is a 51-year-old male who was diagnosed with Covid. Onset of symptoms June 17. Patient had monoclonal antibody infusion today. The transient chest pain started prior to the transfusion. There is no increased shortness of breath. There is no new symptoms other than the chest pain that started today. He does have a history of PE. He was not compliant with his Eliquis therapy. The last several days he has been taking it twice daily and should be therapeutic. Patient does endorse diarrhea. Diarrhea started several days ago. He is not bruising easily. He has not noted a rash. Patient denies any urinary symptoms. His only GI symptom is diarrhea. He denies leg pain, swelling discoloration. He denies pleuritic chest pain. He denies increased shortness of breath. Per problem list he has a history of cancer which he nor his informed me of. Prior similar symptoms: No Recent Illness/Hospitalization: Yes PFSH PFS Home Medications apixaban 5 mg PO BID 06/25/21 [History Last Taken 06/25/21] Allergy/AdvReac Type Severity Reaction Status Date / Time No Known Allergies Allergy Verified 07/30/20 14:24 Social History (Updated 06/26/21 @ 00:[address] Aime Mcdermott MD) household members: spouse Smoking Status: Former smoker alcohol intake: current details: Occasionally substance use type: does not use ROS ROS ED Constitutional Constitutional ED: Reports fever(s) and subjective; Denies chills, sweats or weight loss Eyes Eyes: Denies blurry vision, change in vision or diplopia ENT ENT ED: Reports sore throat; Denies ear pain or rhinorrhea Cardiovascular Cardiovascular: Reports chest pain; Denies orthopnea, palpitations, paroxysmal nocturnal dyspnea or racing heartbeat Respiratory/Chest Respiratory/Chest: Reports cough, dyspnea and dyspnea on exertion; Denies orthopnea, paroxysmal nocturnal dyspnea or sputum Gastrointestinal Gastrointestinal: Reports diarrhea; Denies abdominal pain, constipation, melena, nausea or vomiting Genitourinary Genitourinary ED: Denies dysuria, hematuria or urinary frequency Musculoskeletal Musculoskeletal: Reports myalgias; Denies arthralgias, back pain or neck pain Integumentary Denies Abrasions or rash Neurologic Neurologic: Denies headache(s) or paresthesias Endocrine Endocrinology: Denies polydipsia, polyphagia or polyuria Hematologic/Lymphatic Hematologic/Lymphatic: Reports easy bruising; Denies anemia or easy bleeding Allergic/Immunologic Allergic/Immunologic ED: Denies mouth swelling, rhinitis, throat swelling, tongue swelling or hives EXAM Physical Exam Const Vital Signs: 06/25/21 23:55 06/26/21 00:27 06/26/21 00:36 Temperature 99.7 F H Temperature Source Temporal Pulse Rate 98 85 Respiratory Rate 26 H 21 H Respiratory Effort Labored Blood Pressure 132/92 H Blood Pressure Mean 105 Pulse Ox 97 98 Oxygen Delivery Method Room Air Room Air 06/26/21 02:09 Temperature Temperature Source Pulse Rate 85 Respiratory Rate 17 Respiratory Effort Blood Pressure Blood Pressure Mean Pulse Ox 95 Oxygen Delivery Method Room Air Positive well nourished, well developed and obese General Appearance ED: well developed and other Patient is tachypneic. There is no use of accessory muscles and no retractions. ; Negative for NAD or pallor Nutritional Appearance: obese HEENT Reports TM's clear and moist mucous membranes HEENT Narrative: Head is atraumatic and normocephalic. Nares patent. Tympanic Membrane ED: Yes TM's clear Eyes PERRL and EOMs intact bilaterally General Eye ED: Negative for pale conjunctiva or scleral icterus Neck no lymphadenopathy, supple and no JVD Chest Wall inspection of chest normal and palpation of chest normal Resp normal respiratory effort and No clear to auscultation bilaterally Auscultation: rales bilateral lower Cardio regular rate, regular rhythm, S1 normal heart sound, S2 normal heart sound and no murmurs GI normal to inspection, nondistended, normoactive bowel sounds and non-tender Palpation: soft Back/Spine no CVA tenderness Thoracic Spine / Upper Back: Negative for paraspinal muscle tenderness Extremity normal to inspection Extremity Narrative: There is no asymmetry, swelling, discoloration, leg vein distention, palpable cords or tenderness along the distribution of the deep venous system. General Extremety ED: Negative for edema or tenderness General Extremity: Negative for edema Neuro oriented x3 and CN's II-XII intact bilaterally Neuro Narrative: Gait normal. Sensorium / Orientation: alert Psych mental status grossly normal Skin No no rashes or lesions noted and no wounds Skin Narrative: There is moderately is back with delayed capillary refill. His earlobes are cyanotic. General Skin Exam: Negative for jaundice or pallor MDM MDM MDM Narrative Medical decision making narrative: Chest pain does not consistent or concerning for cardiac with duration of 1 seconds with no alleviating or exacerbating factors. There is no pleuritic component and with patient reporting compliance with Eliquis the past several days doubt PE. Since patient has rales chest x-ray was obtained. Concerned this may be due to Covid pneumonia. CBC was obtained to assess white count and rule out anemia. Electrolytes were obtained to assess specifically potassium as well as renal function and anion gap. Because he is mottled a VBG was obtained to assess acid-base status as well as a lactate. Lab Data Attestation: I reviewed the patient's lab results. Lab results narrative: Patient is neutropenic due to Covid. Hemoglobin is elevated 17.9. Patient's VBG reveals alkalosis with a low CO2 of 18. I ABG was obtained and carboxyhemoglobin was obtained because patient's been burning wood to heat his house. Carboxyhemoglobin level is normal. ABG reveals a respiratory alkalosis with an increased AA gradient. He is not hypoxic. His pulse ox correlates with his ABG results. Suspect patient's lenticular rash is due to Covid. Labs: Laboratory Results - last 24 hr 06/26/21 06/26/21 00:20 00:20 WBC 2.2 L RBC 6.20 Hgb 17.9 H Hct 51.5 MCV 83.1 MCH 28.9 MCHC 34.8 RDW Std Deviation 35.9 RDW Coeff of Uriel 11.9 Plt Count 115 L MPV 9.4 Immature Gran % (Auto) 0.500 Neut % (Auto) 62.9 Lymph % (Auto) 27.4 Williamson % (Auto) 8.7 Eos % (Auto) 0.0 Baso % (Auto) 0.5 Absolute Neuts (auto) 1.4 L Absolute Lymphs (auto) 0.60 L Nucleated RBC % 0 Diff Path Review May foll Atypical Lymphocytes 1+ Lactic Acid 1.4 ABG Data ABG results: ABG 06/26/21 06/26/21 06/26/21 00:41 01:22 01:56 Specimen Type MAREKL ART Sample Site L Radial pH 7.55 H Bicarbonate Actual 22.6 Total CO2 23 Base Excess 0 O2 Saturation 96 ABG pCO2 25.7 L ABG pO2 66 L Carlos Test Positive VBG pH 7.55 H VBG pO2 18 L* VBG HCO3 25 VBG Total CO2 26 VBG O2 Sat (Calc) 36 L VBG Base Excess 3 VBG Carboxyhemoglobin 1.5 POC Mix VBG pCO2 Pt Tmp 28.7 L O2 Delivery Device Room Air Room Air Crit Call To/Read Back Yes Blood Gas Notified Whom Dr Mcdermott Blood Gas Notified Time 00:43:28 Radiography Chest X-Ray - ED: 1 View, Read by ED Physician (Interpreted by me at 0040), Normal, Heart, Bony Structures, Right Infiltrate and Left Infiltrate Diagnostic Testing: Clinical Impression(s) from Imaging Studies Chest X-Ray 06/26/21 00:10 IMPRESSION: Right basilar atelectasis. Possible pneumonitis within the left lower lobe. Clinical correlation recommended. Electronically Signed: Patienec Townsend MD at 1:03 EDT , Service support , Discharge Plan Triage Chief Complaint: Chest Other ED Provider: Aime Mcdermott Dx/Rx/DC Orders Clinical Impression: Pneumonia due to 2019-nCoV, Shortness of breath, Intermittent right-sided chest pain, Acute respiratory alkalosis Instructions: Coronavirus Disease 2019 (COVID-19): Caring for Yourself or Others, ED Chest Pain, Noncardiac Prescriptions: No Action apixaban 5 MG tablet 5 mg PO BID RF: 0 Primary Care Provider: Connor Alfaro Referrals: Connor Alfaro MD [Primary Care Provider] - 1 Week if not improving Disposition Disposition: Home, Self Care
[2021-06-26 00:50] LABS: Atypical Lymphocyte 1+ %
[2021-06-26 00:51] LABS: Blood Gas Specimen Type VEN; O2 Delivery Device Room Air; VBG BASE EXCESS 3 mmol/L (-1.0-3.5); VBG Bicarbonate 25 mmol/L (22-26); VBG PO2 18 mmHg (25-40); VBG SO2 36 % (50-70); VBG TCO2 26 mmol/L (23-33); VBG pCO2 28.7 mmHg (41-51); VBG pH 7.55 (7.32-7.42)
[2021-06-26 01:03] LABS: Lactic Acid 1.4 mmol/L (0.4-1.9)
[2021-06-26 01:57] LABS: Carboxyhemoglobin Frac (CO) 1.5 % (0.0-1.5)
[2021-06-26 02:01] LABS: Allen Test Positive; Base Excess 0 mmol/L (-2 to +2); Bicarbonate 22.6 mmol/L (22-26); Blood Gas Specimen Type ART; O2 Delivery Device Room Air; PO2 66 mmHG (75-100); SITE L Radial; SO2 96 % (95-99); Total Carbon Dioxide 23 mmol/L; pCO2 25.7 mmHg (35-45); pH 7.55 (7.35-7.45)
[2021-06-26 02:09] VITALS: PULSE 85; RESP 17; O2SAT 95
[2021-06-26 02:25] LABS: Anion Gap 7 (5-15); BUN 16 mg/dL (7-18); BUN/Creat Ratio 10.3 RATIO (10-20); Chloride 99 mmol/L (98-107); Creatinine, Serum 1.55 mg/dL (0.70-1.30); EST Glomerular Filtration Rate 51 mL/min (>60); Est Glom Filt Rate - Afr Amer 62 mL/min (>60); Estimated Creatinine Clearance 59.53 ml/min; Glucose 125 mg/dL (74-106); Potassium 3.3 mmol/L (3.5-5.1); Sodium Level 132 mmol/L (136-145)
[2021-06-28 09:20] LABS: Pathologist Review Reviewed
== END 2021-06-26 02:27 | disposition home or self-care (01) ==
PROVIDERS: Emergency Provider Emergency Medicine; PCP Family Medicine
DX: U07.1 COVID-19 (principal); J12.82 Pneumonia due to coronavirus disease 2019; E87.3 Alkalosis; D70.9 Neutropenia, unspecified; R19.7 Diarrhea, unspecified; E66.9 Obesity, unspecified; Z79.01 Long term (current) use of anticoagulants; Z86.711 Personal history of pulmonary embolism; Z87.891 Personal history of nicotine dependence
CPT/HCPCS: 36600; 71045; 80048; 82375; 82803; 83605; 85025; 99284; A4216

== ENCOUNTER → 2022-12-26 | Outpatient (CLI) | payer OTHER, SELFPAY ==
--- NOTE | 2022-12-26 16:03 | RAD_ITS ---
STUDY: X-RAY - RIGHT SHOULDER REASON FOR EXAM: Male, 52 years old. Shoulder injury. TECHNIQUE: 4 view(s) of the shoulder. COMPARISON: None. FINDINGS: Normal glenohumeral articulation. Normal acromioclavicular joint. Normal acromion. There is no acute fracture, dislocation or destructive osseous pathology. Normal humeral head and visualized proximal humerus. The soft tissue structures are unremarkable. Normal visualized pulmonary apex. RAD/Shoulder min 2 Views IMPRESSION: Normal x-ray examination of the right shoulder. Electronically Signed: Donald Rubio DO at 21:10 EDT ,
[2022-12-26 18:02] LABS: Anion Gap 7 (5-15); BUN 15 mg/dL (7-18); BUN/Creat Ratio 12.3 RATIO (10-20); Calcium,Total 9.3 mg/dL (8.5-10.1); Chloride 107 mmol/L (98-107); Cholesterol 243 mg/dL (200); Creatinine, Serum 1.22 mg/dL (0.70-1.30); EST Glomerular Filtration Rate 67 mL/min (>60); Est Glom Filt Rate - Afr Amer 81 mL/min (>60); Glucose 131 mg/dL (74-106); High Density Lipoprotein 38 mg/dL; Potassium 3.8 mmol/L (3.5-5.1); Sodium Level 140 mmol/L (136-145); Triglycerides 116 mg/dL; Very Low Density Lipoprotein 23 mg/dL (5-40)
== END | disposition home or self-care (01) ==
PROVIDERS: PCP Family Medicine; Referring Provider Family Medicine; Visit Provider Family Medicine
DX: Z00.00 Encounter for general adult medical examination without abnormal findings (principal); I89.0 Lymphedema, not elsewhere classified; S49.91XA Unspecified injury of right shoulder and upper arm, initial encounter; X58.XXXA Exposure to other specified factors, initial encounter
CPT/HCPCS: 36415; 73030; 80048; 80061

== ENCOUNTER 2023-03-18 00:12 | Observation (INO) | payer OTHER, SELFPAY ==
[2023-03-18] VITALS (15 sets, daily range): BP systolic 99–157; BP diastolic 66–128; PULSE 62–114; RESP 15–18; TEMP 36.3–37.3; O2SAT 94–100; BMI 38.4; BMI 38.2; BMI 38.0
--- NOTE | 2023-03-18 00:17 | CT_ITS ---
STUDY: CT ABDOMEN AND PELVIS WITH CONTRAST REASON FOR EXAM: Male, 53 years old. Abdominal pain RADIATION DOSAGE (If Supplied By Facility): CTDIvol = ( 19.27 ) mGy, DLP = ( 1083.27 ) mGycm TECHNIQUE: Spiral CT imaging of the abdomen and pelvis was performed with intravenous contrast material ( / ), followed by coronal and sagittal reformatting. Individualized dose optimization techniques were used for this CT. COMPARISON: 07/10/2020. FINDINGS: LOWER CHEST: Bilateral atelectasis versus scar formation at the lung bases. Normal heart. Normal pericardium. LIVER: Normal GALLBLADDER AND BILIARY TREE: Costal 5 stones within a nondistended, noninflamed gallbladder.. Normal biliary ductal system. SPLEEN: Normal PANCREAS: Normal ADRENAL GLANDS: Normal KIDNEYS AND URETERS: No renal parenchymal lesion. 5 mm calcified stone within the mid right renal pelvis. No right-sided hydronephrosis. No right ureteral calculus. Mild left-sided hydronephrosis. 5 mm calculus within the mid left ureter.. BOWEL: Normal stomach. Normal small bowel. Normal appendix. Minimal diverticular disease of the descending and sigmoid colonic segments without localized inflammation.. PERITONEUM: No free intraperitoneal air or fluid. No intra-abdominal fluid collection. Shotty root of the mesentery lymph nodes is mild haziness of the root of the mesentery. LYMPH NODES: No mesenteric, retroperitoneal, or pelvic lymphadenopathy. VESSELS: Mild atherosclerotic plaque of the abdominal vasculature. URINARY BLADDER: Normal REPRODUCTIVE ORGANS: Normal ABDOMINAL WALL: Fat-containing umbilical hernia without bowel involvement. Fat-containing left inguinal hernia without bowel involvement. BONES: Mild multilevel degenerative change of the spine. CT/Abdomen/Pelvis without Cont IMPRESSION: 1. 5 mm mid left ureteral calculus resulting in mild left-sided hydronephrosis. 2. Nonobstructing by mm right renal calculus. 3. Distal descending and proximal sigmoid colonic diverticulosis without evidence of acute diverticulitis. 4. 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 5. Cholelithiasis without evidence of acute cholecystitis. 6. Small fat-containing umbilical hernia without bowel involvement. 7. Fat-containing left inguinal hernia without bowel involvement. Electronically Signed: Parveen Avery MD at 1:47 EDT ,
--- NOTE | 2023-03-18 00:18 | EX.ED.DYSGE1 ---
HPI History of Present Illness Chief Complaint: Flank Pain Detail of Chief Complaint: Left flank pain Informant: patient and spouse/S.O. Narrative Narrative: Patient presents with left flank pain that he initially experienced 3 days ago and came to the emergency department but before getting to triage his pain resolved so is he made his take him home. Patient states that the pain came back about an hour ago and describes it in his back and left side and it severe. Patient vomited x1. No prior history of kidney stones. Denies urinary symptoms. He does have history of testicular cancer and history of DVT and is currently on Eliquis. [facility] Medical History (Updated 03/18/23 @ 02:[address] Beata Saldivar, DO) Bilateral pulmonary embolism Cancer Former tobacco use History of lung cancer History of testicular cancer Restrictive lung disease Home Medications apixaban 5 mg tablet 5 mg PO BID 06/25/21 [History Last Taken 06/25/21] hydrocodone-acetaminophen 5-325mg 5mg-325mg 1 tab PO Q4H PRN PRN Pain 2 days #15 TABLETS 03/18/23 [Rx Last Taken Unknown] tamsulosin 0.4 mg capsule (Flomax) 0.4 mg PO DAILY #7 caps 03/18/23 [Rx Last Taken Unknown] Allergy/AdvReac Type Severity Reaction Status Date / Time No Known Allergies Allergy Verified 07/30/20 14:24 Family History (Updated 03/18/23 @ 01:[address] Kendra Garcia MD) Mother Cancer Father VTE (venous thromboembolism) Surgical History (Updated 03/18/23 @ 01:[address] Kendra Garcia MD) H/O abdominal surgery H/O unilateral orchiectomy S/P herniorrhaphy Social History (Updated 06/26/21 @ 00:[address] Aime Mcdermott MD) household members: spouse Smoking Status: Former smoker alcohol intake: current details: Occasionally substance use type: does not use ROS ROS ED Review of Systems ROS Unobtainable: other Constitutional Constitutional ED: Reports lethargy; Denies chills, fever(s), sweats or weight loss Eyes Eyes: Denies blurry vision, change in vision or diplopia ENT ENT ED: Denies rhinorrhea or sore throat Cardiovascular Cardiovascular: Denies chest pain, orthopnea or racing heartbeat Respiratory/Chest Respiratory/Chest: Denies cough, dyspnea, dyspnea on exertion, orthopnea or sputum Gastrointestinal Gastrointestinal: Denies abdominal pain, diarrhea, nausea or vomiting Genitourinary Genitourinary ED: Denies dysuria, hematuria or urinary frequency Musculoskeletal Musculoskeletal: Reports back pain; Denies arthralgias, myalgias or neck pain Integumentary Denies abscess, Abrasions or rash Neurologic Neurologic: Denies headache(s) or weakness Psychiatric Psychiatric: Denies anxiety, depression or suicidal thoughts Endocrine Endocrinology: Denies polydipsia, polyphagia or polyuria Hematologic/Lymphatic Hematologic/Lymphatic: Denies easy bleeding, easy bruising or lymphadenopathy Allergic/Immunologic Allergic/Immunologic ED: Denies mouth swelling, tongue swelling or urticaria EXAM Physical Exam Const Vital Signs: 03/18/23 00:13 03/18/23 00:13 Temperature 98.1 F Temperature Source Oral Blood Pressure 157/128 H Blood Pressure Mean 137 Positive well nourished and well developed General Appearance ED: well developed and NAD HEENT Reports TM's clear and moist mucous membranes normocephalic and atraumatic; Negative for trauma or tenderness Tympanic Membrane ED: Yes TM's clear Eyes PERRL and EOMs intact bilaterally General Eye ED: Negative for pale conjunctiva or scleral icterus Neck no lymphadenopathy, supple and no JVD General: Negative for tenderness Chest Wall inspection of chest normal and palpation of chest normal Chest: Negative for tenderness Resp normal respiratory effort and clear to auscultation bilaterally Effort and Inspection: Negative for respiratory distress or pain with movement Auscultation: Negative for rhonchi, wheezes or diminished lung sounds Cardio regular rate, regular rhythm, S1 normal heart sound, S2 normal heart sound and no murmurs Peripheral Pulses: pulses 2+ throughout GI normal to inspection, nondistended, normoactive bowel sounds, soft to palpation, non-distended and no masses GI Narrative: Tenderness to the left lower quadrant with some mild guarding. There is no rebound, rigidity, or pedal signs. He does have CVA tenderness on the left. Back/Spine no thoracic nor lumbar tenderness; Negative for no CVA tenderness Back/Spine Narrative: Left CVA tenderness. Extremity normal to inspection General Extremety ED: Negative for edema General Extremity: Negative for edema Neuro oriented x3, CN's II-XII intact bilaterally, no sensory deficits noted and gait normal Sensorium / Orientation: awake, alert, oriented to person, oriented to place and oriented to time Motor Exam: strength 5/5 throughout and strength abnormal Psych mental status grossly normal Skin no rashes or lesions noted and no wounds MDM MDM MDM Narrative Medical decision making narrative: Patient with sudden onset of left flank pain. In the differential would be kidney stone versus aortic aneurysm versus UTI or bowel obstruction or diverticulitis. IV established on arrival. Patient was medicated with Dilaudid as well as Zofran and Toradol and he had good pain relief with that. CBC with differential white count 9.7 with a hemoglobin of 16 and he platelet count of 243. Chemistries unremarkable. Glucose was elevated at 235. Urinalysis negative for infection but did show 1000 of glucose. Also 10-[address] scan of the abdomen pelvis showed cholelithiasis without evidence of cholecystitis. Patient had a 5 mm stone in the left mid ureter with hydroureter. Patient also with left inguinal hernia containing fat. At this point I believe his pains caused by the ureteral lithiasis on the left. At 5 mm he is right on the border of passing this on his own. He would like to go home and attempt to pass it on his own. He will be given a prescription for naproxen as well as Flomax and hydrocodone for pain. Patient advised to return if worsening pain, fever, vomiting, or condition worsening way. He will be given a referral to urology for follow-up. I also discussed with patient his elevated blood glucose level and the fact that he spilling glucose in the urine and concern for type 2 diabetes. He will manage his sugar intake and follow-up with his primary care physician regarding these findings for further evaluation for type 2 diabetes and possible starting diet and exercise regimen versus medication to manage this. Prior to discharging the patient he developed more severe pain and nausea. This time he will be admitted for symptom management. Lab Data Attestation: I reviewed the patient's lab results. Labs: Laboratory Results - last 24 hr 03/18/23 03/18/23 00:20 01:39 WBC 9.7 RBC 5.38 Hgb 16.1 Hct 45.0 MCV 83.6 MCH 29.9 MCHC 35.8 RDW Std Deviation 38.2 RDW Coeff of Uriel 12.6 Plt Count 243 MPV 9.2 Immature Gran % (Auto) 0.900 Neut % (Auto) 59.8 Lymph % (Auto) 29.0 [place] % (Auto) 7.8 Eos % (Auto) 1.7 Baso % (Auto) 0.8 Absolute Neuts (auto) 5.8 Absolute Lymphs (auto) 2.82 Nucleated RBC % 0 Sodium 139 Potassium 3.4 L Chloride 105 Carbon Dioxide 24.0 Anion Gap 10 BUN 11 Creatinine 1.74 H Estim Creat Clear Calc 51.86 Est GFR (MDRD) Af Amer 53 L Est GFR (MDRD) Non-Af 44 L BUN/Creatinine Ratio 6.3 L Glucose 235 H Calcium 9.2 Urine Color Yellow Urine Clarity Clear Urine pH 6.0 Ur Specific [place] 1.020 Urine Protein 30 H Urine Glucose (UA) 1000 H Urine Ketones 5 H Urine Occult Blood 250 H Urine Nitrite Negative Urine Bilirubin Negative Urine Urobilinogen 1 H Ur Leukocyte Esterase Negative Urine RBC 10-25 SEEN Urine WBC 0 SEEN Ur Squamous Epith Cells 0 SEEN Urine Bacteria 1+ Urine Mucus 0 SEEN Discharge Plan Triage Chief Complaint: Flank Pain ED Provider: Beata Saldivar Dx/Rx/DC Orders Clinical Impression: Hyperglycemia, Urolithiasis Instructions: ED Kidney Stone w/ Colic, ED Hyperglycemia New Susp Diabetes Prescriptions: New hydrocodone-acetaminophen [hydrocodone-acetaminophen] 5-325 mg tablet 1 tab PO Q4H PRN PRN (Reason: Pain) 2 Days Qty: 15 0RF tamsulosin [Flomax] 0.4 mg capsule 0.4 mg PO DAILY Qty: 7 0RF No Action apixaban 5 MG tablet 5 mg PO BID Primary Care Provider: Connor Alfaro Referrals: Luis Ramos MD [Med Staff - Active Staff] - 3-5 Days Connor Alfaro MD [Primary Care Provider] - 3-5 Days Disposition Disposition: Acute Care Hospital [facility]
[2023-03-18] MEDS: HYDROmorphone 1 MG/ML Syringe IV (00:21)
[2023-03-18] MEDS: Ondansetron 4 MG/2 ML Vial IV ×2 (00:22→02:28)
[2023-03-18] MEDS: 0.9% Normal Saline 1,000 ML 125 ML IV ×2 (00:25→05:13)
[2023-03-18] MEDS: Ketorolac 15 MG/ML Vial IV (00:25)
[2023-03-18 00:31] LABS: Absolute Lymphocyte Count 2.82 X10^3/uL (0.83-4.51); Absolute Neutrophil Count 5.8 X10^3/uL (2.0-7.7); Basophil# 0.08 X10^3/uL; Basophil% 0.8 % (0-1); Eosinophil# 0.17 X10^3/uL; Eosinophils% 1.7 % (0-5); Hemoglobin 16.1 g/dL (13.0-16.5); Lymphocyte # 2.82 X10^3/ul (0.83-4.51); Mean Corp Hgb Conc 35.8 g/dL (32-36); Mean Corpuscular Hgb 29.9 pg (27.0-32.0); Mean Corpuscular Volume 83.6 fL (80-94); Mean Platelet Vol. 9.2 fl (6.2-12.0); Monocyte# 0.76 X10^3/uL; Monocyte% 7.8 % (0-10); NRBC Flagged by Analyzer 0 % (0-5); Neutrophil # 5.81 X10^3/uL (2.7-7.7); Neutrophil % 59.8 % (47-70); Platelet Count 243 K/mm3 (150-450); RBC Distribution Width CV 12.6 % (11.6-14.6); RBC Distribution Width SD 38.2 fl (35.1-43.9); Red Blood Count 5.38 M/mm3 (4.6-6.2); White Blood Count 9.7 K/mm3 (4.4-11.0)
[2023-03-18 01:17] LABS: Anion Gap 10 (5-15); BUN 11 mg/dL (7-18); BUN/Creat Ratio 6.3 RATIO (10-20); Calcium,Total 9.2 mg/dL (8.5-10.1); Chloride 105 mmol/L (98-107); Creatinine, Serum 1.74 mg/dL (0.70-1.30); EST Glomerular Filtration Rate 44 mL/min (>60); Est Glom Filt Rate - Afr Amer 53 mL/min (>60); Estimated Creatinine Clearance 51.86 ml/min; Glucose 235 mg/dL (74-106); Potassium 3.4 mmol/L (3.5-5.1); Sodium Level 139 mmol/L (136-145)
[2023-03-18 01:45] LABS: Mucous, Urine 0 SEEN /hpf (<or=2+); Squamous Epithelial Cells - UA 0 SEEN /hpf (0-5); White Blood Cells 0 SEEN /hpf (0-5)
[2023-03-18 01:46] LABS: Color, Urine Yellow (Yellow); Glucose, Dipstick 1000 mg/dl (Normal); Ketone-Dipstick 5 mg/dl (Negative); Leukocyte Esterase-Dipstick Negative /ul (Negative); Nitrite-Dipstick Negative (Negative); Occult Blood-Urine 250 /ul (Negative); Protein-Dipstick 30 mg/dl (Negative); Urine Bilirubin Dipstick Negative (Negative); Urine Clarity Clear (Clear); Urine Urobilinogen 1 mg/dl (Normal)
[2023-03-18 01:53] LABS: Bacteria 1+ /hpf (None Seen); Red Blood Cells-Urine 10-25 SEEN /hpf (0-5)
[2023-03-18] MEDS: Tamsulosin HCl 0.4 MG Capsule PO ×2 (02:23→17:30)
[2023-03-18] MEDS: HYDROmorphone 0.5 MG/0.5 ML SYRINGE IV ×2 (02:29→11:26)
--- NOTE | 2023-03-18 02:34 | HP.PCM.HOS_ITS ---
HPI - General General Date of Admission: 03/18/23 Date of Service: 03/18/23 Chief Complaint: Flank pain, N/V. 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 He notes the pain tends to come in waves and is also in the L sided of the abdomen. He rates the pain currently 4/10 in severity but notes it does ramp up to 10/10 in severity. Work-up in the ED included T98.1, BP 157/128, CBC with WBC 9.7, hemoglobin 16.1, platelet 243 without shift, BMP with potassium 3.4, BUN/creatinine 11/1.74, glucose 235, urinalysis with specific gravity 1.20, protein 30, glucose thousand, ketone 5, occult blood 250, nitrite negative, leukocyte Estrace negative with 0 urine WBCs with 1+ urine bacteria, CT abdomen and pelvis with a 5 mm mid left ureteral calculus resulting in mild left-sided hydronephrosis, nonobstructing right renal calculus, descending distal and proximal sigmoid colonic diverticulosis without evidence of acute diverticulitis, mild haziness of the root of the mesentery with associated shotty lymph nodes, small fat-containing umbilical hernia without bowel involvement, cholelithiasis without evidence of acute cholecystitis, fat- containing left inguinal hernia without bowel involvement. Patient was attempted to be discharged to home from the ED with a prescription for naproxen, Flomax and hydrocodone as well as follow-up with primary care physician for hyperglycemia however upon tentative discharge patient had persistent pain and nausea prompting admission instead. [facility] Medical History (Updated 03/18/23 @ 02:[address] Kendra Garcia MD) Bilateral pulmonary embolism Former tobacco use History of testicular cancer Restrictive lung disease Home Medications apixaban 5 mg tablet 5 mg PO BID 06/25/21 [History Last Taken 06/25/21] hydrocodone-acetaminophen 5-325mg 5mg-325mg 1 tab PO Q4H PRN PRN Pain 2 days #15 TABLETS 03/18/23 [Rx Last Taken Unknown] tamsulosin 0.4 mg capsule (Flomax) 0.4 mg PO DAILY #7 caps 03/18/23 [Rx Last Taken Unknown] Allergy/AdvReac Type Severity Reaction Status Date / Time No Known Allergies Allergy Verified 07/30/20 14:24 Family History Mother Cancer Father VTE (venous thromboembolism) Surgical History H/O abdominal surgery H/O unilateral orchiectomy S/P herniorrhaphy Social History household members: spouse Smoking Status: Former smoker alcohol intake: current details: Occasionally substance use type: does not use ROS ROS Narrative Admission Review of Systems: CONSTITUTIONAL: No weight loss, fever, chills, + weakness or fatigue. HEENT: Eyes: No visual loss, blurred vision, double vision or yellow sclerae. Ears, Nose, Throat: No hearing loss, sneezing, congestion, runny nose or sore throat. SKIN: No rash or itching, lesions, wounds. CARDIOVASCULAR: No chest pain, chest pressure or chest discomfort, palpitations, edema, orthopnea, syncopal events. RESPIRATORY: No shortness of breath, cough or sputum, wheezing, hemoptysis. GASTROINTESTINAL: + anorexia, nausea, vomiting, abdominal pain, flank pain, left primarily. No diarrhea, melena, BRBPR. GENITOURINARY: No dysuria, frequency, urgency or retention. NEUROLOGICAL: No headache, dizziness, syncope, paralysis, ataxia, numbness or tingling in the extremities, focal weakness, change in bowel or bladder control, seizure. MUSCULOSKELETAL: + muscle, back pain, joint pain or stiffness. HEMATOLOGIC: No anemia, bleeding or bruising. LYMPHATICS: No enlarged nodes. No history of splenectomy. PSYCHIATRIC: No history of depression or anxiety. ENDOCRINOLOGIC: No reports of sweating, cold or heat intolerance. No polyuria or polydipsia. ALLERGIES: No history of asthma, hives, eczema or rhinitis. Vital Signs Vital Signs Vital Signs: 03/18/23 00:13 03/18/23 00:13 Temperature 98.1 F Temperature Source Oral Blood Pressure 157/128 H Blood Pressure Mean 137 Weight Weight: 267 lb 10.259 oz Body Mass Index (BMI) 38.4 Physical Exam Narrative Physical Examination: General: Awake, alert, oriented x 3 and cooperative, laying in the ED bed, uncomfortable appearing. Skin: Normal color, normal turgor, no icterus, no cyanosis. HEENT: AT/NC, EOMI, PERRLA, mildly dry MM, no carotid bruits or JVD noted. Lungs: CTA bilaterally, moderate effort, mild decrease BL bases, no rales, ronchi or wheezing. Heart: Regular rate and rhythm; no gallop, rub audible. Abdomen: Soft, obese, diffusely tender although left quadrants greater, no marked distention, mildly hyperactive bowel sounds, notable left flank discomfort with palpation, no obvious HSM however given pain this is a difficult evaluation. Extremities: No cyanosis, clubbing, or edema. Neurological: Patient awake, alert, oriented as noted, cognitive function intact; pupils equally reactive to light and accommodation, cranial nerves II- XII grossly normal, moving all 4 extremities, no focal deficits, strength moderately to severely globally decreased secondary to acute presentation complaints. Psychiatric: Affect appears fatigued, uncomfortable, no acute evidence of depressive or anxiety feelings. Results Lab / Micro Data 03/18/23 00:20 03/18/23 00:20 Labs: Laboratory Results - last 24 hr 03/18/23 00:20: WBC 9.7, RBC 5.38, Hgb 16.1, Hct 45.0, MCV 83.6, MCH 29.9, MCHC 35.8, RDW Std Deviation 38.2, RDW Coeff of Uriel 12.6, Plt Count 243, MPV 9.2, Immature Gran % (Auto) 0.900, Neut % (Auto) 59.8, Lymph % (Auto) 29.0, [place] % (Auto) 7.8, Eos % (Auto) 1.7, Baso % (Auto) 0.8, Absolute Neuts (auto) 5.8, Absolute Lymphs (auto) 2.82, Nucleated RBC % 0, Sodium 139, Potassium 3.4 L, Chloride 105, Carbon Dioxide 24.0, Anion Gap 10, BUN 11, Creatinine 1.74 H, Estim Creat Clear Calc 51.86, Est GFR (MDRD) Af Amer 53 L, Est GFR (MDRD) Non-Af 44 L, BUN/Creatinine Ratio 6.3 L, Glucose 235 H, Calcium 9.2 03/18/23 01:39: Urine Color Yellow, Urine Clarity Clear, Urine pH 6.0, Ur Specific [place] 1.020, Urine Protein 30 H, Urine Glucose (UA) 1000 H, Urine Ketones 5 H, Urine Occult Blood 250 H, Urine Nitrite Negative, Urine Bilirubin Negative, Urine Urobilinogen 1 H, Ur Leukocyte Esterase Negative, Urine RBC 10- 25 SEEN, Urine WBC 0 SEEN, Ur Squamous Epith Cells 0 SEEN, Urine Bacteria 1+, Urine Mucus 0 SEEN Assessment & Plan Assessment/Plan (1) Urolithiasis: PLAN: Plan The patient is a 53 y/o M w/ PMHx: Obesity, Former tobacco use, Restrictive lung disease, Hx Metastatic Testicular CA (lymph nodes, lungs) in remission, Hx VTE (BL PE), CKD stage III who presents to the [facility] ED on 03/18/23 with history of persistent ongoing left flank pain x 3 days with nausea and emesis associated with no fevers or chills with no history of previous kidney stones initially reportedly in triage several days prior when he had onset of discomfort however because it was very busy and his pain seemed to subside he had left at that time but notes worsening since. #1. Acute Flank Pain secondary to Acute Nephrolithiasis, Acute UTI: Will admit to [facility], maintain on hydration, will continue recently initiated Flomax regimen, will have PRN oral and IV pain regimen; however, if not effective may consider transition to Dilaudid [employer], PRN anti-emetics, monitor I&Os, strain urine, given size of calculus > 4 mm but less than 6 mm may pass without intervention but low threshold to involve Urology if not improving/passing stone or renal function worsened. #2. Elevated BP without HTN diagnosis: Admission ED BP elevated, potentially pain related given acute presentation, continue to monitor and add oral regimen if appropriate, as needed IV hydralazine in the interim. #3. Acute Renal Insufficiency on Chronic Kidney Disease Stage III, unclear subtype: Admission BUN/Cr 06/24.74, baseline renal function 1.2-1.5, repeat BMP in AM. #4. Hyperglycemia: Admission glucose 235, urinalysis with thousand glucose, will obtain hemoglobin A1c, in the interim will place on ADA diet with Accu- Cheks with insulin sliding scale. If notable HgBA1c would add nutrition consultation for education and teaching for new onset diabetes. #5. Hypokalemia: Admission K+ 3.4, magnesium level requested, supplementation given, repeat level in AM. #6. 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 #7. Obesity: Weight loss and lifestyle changes encouraged. #8. Former tobacco use: Encourage continued tobacco cessation. #9. History of VTE: Patient with history of DVT, PE, continue home apixaban regimen. #10. DVT prophylaxis: We will continue patient home apixaban regimen. Charges/Coding Visit Charges Inpatient E&M: 18019 Init Hosp L2
[2023-03-18 02:58] LABS: Magnesium 1.7 mg/dL (1.6-2.6)
[2023-03-18] MEDS: Pantoprazole Sodium 40 MG Tablet PO (04:15)
[2023-03-18] MEDS: 0.9% Normal Saline 1,000 ML 999 ML IV (04:15)
[2023-03-18] MEDS: Potassium Chloride Oral Tablet 20 MEQ 40 MEQ PO (04:15)
[2023-03-18 07:00] LABS: Bedside Glucose 195 mg/dL (74-106)
--- NOTE | 2023-03-18 07:22 | PCM.PN.HOSP ---
Reason for Visit Reason for Visit: Diagnoses Urinary calculus, unspecified (03/18/23) Subjective Subjective Follow-up for left-sided ureteric calculus and mild left hydronephrosis. Objective Data Objective Data Vital Signs: Vital Signs Temp Pulse Resp BP Pulse Ox O2 Del Method O2 Flow Rate 97.5 F L 114 H 18 131/83 H 99 Nasal Cannula 2 03/18/23 04:07 03/18/23 04:07 03/18/23 04:07 03/18/23 04:07 03/18/23 04:34 03/18/23 04:34 03/18/23 04:34 Oxygen Flow Rate (L/min) 2 Oxygen Delivery Method Nasal Cannula Weight: 266 lb 1.567 oz Body Mass Index (BMI) 38.0 Intake & Output: Intake and Output for Last 24 Hours 03/16/23 03/17/23 03/18/23 23:59 23:59 23:59 Intake Total 1740 / 1740 Balance 1740 / 1740 Lab / Micro Data 03/18/23 00:20 03/18/23 06:40 Labs: Laboratory Results - last 24 hr 03/18/23 00:20: WBC 9.7, RBC 5.38, Hgb 16.1, Hct 45.0, MCV 83.6, MCH 29.9, MCHC 35.8, RDW Std Deviation 38.2, RDW Coeff of Uriel 12.6, Plt Count 243, MPV 9.2, Immature Gran % (Auto) 0.900, Neut % (Auto) 59.8, Lymph % (Auto) 29.0, [place] % (Auto) 7.8, Eos % (Auto) 1.7, Baso % (Auto) 0.8, Absolute Neuts (auto) 5.8, Absolute Lymphs (auto) 2.82, Nucleated RBC % 0, Sodium 139, Potassium 3.4 L, Chloride 105, Carbon Dioxide 24.0, Anion Gap 10, BUN 11, Creatinine 1.74 H, Estim Creat Clear Calc 51.86, Est GFR (MDRD) Af Amer 53 L, Est GFR (MDRD) Non-Af 44 L, BUN/Creatinine Ratio 6.3 L, Glucose 235 H, Calcium 9.2, Magnesium 1.7 03/18/23 01:39: Urine Color Yellow, Urine Clarity Clear, Urine pH 6.0, Ur Specific [place] 1.020, Urine Protein 30 H, Urine Glucose (UA) 1000 H, Urine Ketones 5 H, Urine Occult Blood 250 H, Urine Nitrite Negative, Urine Bilirubin Negative, Urine Urobilinogen 1 H, Ur Leukocyte Esterase Negative, Urine RBC 10-25 SEEN, Urine WBC 0 SEEN, Ur Squamous Epith Cells 0 SEEN, Urine Bacteria 1+, Urine Mucus 0 SEEN 03/18/23 06:42: POC Glucose 195 H Radiography Diagnostic Testing: Radiology Impression Abdomen/Pelvis CT 03/18/23 00:17 IMPRESSION: 1. 5 mm mid left ureteral calculus resulting in mild left-sided hydronephrosis. 2. Nonobstructing by mm right renal calculus. 3. Distal descending and proximal sigmoid colonic diverticulosis without evidence of acute diverticulitis. 4. 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 5. Cholelithiasis without evidence of acute cholecystitis. 6. Small fat-containing umbilical hernia without bowel involvement. 7. Fat-containing left inguinal hernia without bowel involvement. Electronically Signed: Parveen Avery MD at 1:47 EDT , Physical Exam Narrative Seen and examined. Patient does not have fever. Complain of left flank abdominal pain with radiation to left anterior abdomen. No prior history of kidney stone. No history of urologic procedure in the past. Denies burning micturition, increased frequency or urgency or hematuria. No dribbling of urine/incontinence. Physical exam General: Alert, Oriented x3, Cooperative HEENT: Atraumatic, PERRLA, EOMI, Normocephalic Oral: No Gingival or Mucosal Lesions/ Ulcerations Neck: Supple, No JVD, Negative Carotid Bruits Lungs: Air entry diminished in bilateral lung bases. No crepitation/rhonchi Cardiovascular: Regular rate, Regular Rhythm, Normal S1, Normal S2, No murmurs Abdomen: Bowel Sounds Present, Soft, Non-Distended : Mild tenderness on the left flank and anterior abdomen. No suprapubic tenderness. Extremities: No edema, Capillary Refill Less than 3 Seconds Skin: No rashes, No breakdown Musculoskeletal: No Tenderness to Palpation of Joints or Extremities Neurological: Cranial nerves II-XII grossly intact, DTR 2+/4 and Symmetrical, Neuro grossly intact Psych/Mental Status: Normal Affect, Appropriate. Assessment & Plan Assessment/Plan (1) Urolithiasis: PLAN: Plan The patient is a 53 y/o M who was admitted on 03/18/23 with history of persistent ongoing left flank pain x 3 days with nausea and emesis associated with no fevers or chills with no history of previous kidney stones #1. Acute Flank Pain secondary to Acute Nephrolithiasis, Acute UTI: Patient admitted to [facility] floor. On Flomax. Urologist consulted. CT abdomen individually reviewed and shows 5 mm calculus in the left mid ureter causing left hydronephrosis. Pain did not relieve in 3 days but worsening therefore probably might not pass spontaneously. Patient has nonobstructive 5 mm calcified stone in the mid right renal pelvis. No right-sided hydronephrosis. Patient had cystoscopy with left retrograde pyelogram ureteroscopy and left stent placement. It was found to have left obstructing ureteric calculi. Continue IV antibiotics ceftriaxone. Urine culture ordered. #2. Elevated BP without HTN diagnosis: Admission ED BP elevated, potentially pain related given acute presentation, continue to monitor and add oral regimen if appropriate, as needed IV hydralazine in the interim. #3. Acute Renal Insufficiency on Chronic Kidney Disease Stage III, unclear subtype: Admission BUN/Cr 11/1.74, baseline renal function 1.2-1.5, repeat BMP in AM. #4. Hyperglycemia: Admission glucose 235, urinalysis with thousand glucose, will obtain hemoglobin A1c, in the interim will place on ADA diet with Accu-Cheks with insulin sliding scale. If notable HgBA1c would add nutrition consultation for education and teaching for new onset diabetes. #5. Hypokalemia: Admission K+ 3.4, magnesium level requested, supplementation given, repeat level in AM. #6. 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 #7. Obesity: Weight loss and lifestyle changes encouraged. #8. Former tobacco use: Encourage continued tobacco cessation. #9. History of VTE: Patient with history of DVT, PE, continue home apixaban regimen. #10. DVT prophylaxis: We will continue patient home apixaban regimen. Clinical Impression(s) from Imaging Studies Abdomen/Pelvis CT 03/18/23 00:17 IMPRESSION: 1. 5 mm mid left ureteral calculus resulting in mild left-sided hydronephrosis. 2. Nonobstructing by mm right renal calculus. 3. Distal descending and proximal sigmoid colonic diverticulosis without evidence of acute diverticulitis. 4. 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 5. Cholelithiasis without evidence of acute cholecystitis. 6. Small fat-containing umbilical hernia without bowel involvement. 7. Fat-containing left inguinal hernia without bowel involvement. Electronically Signed: Parveen Avery MD at 1:47 EDT , Charges/Coding Visit Charges Inpatient E&M: 80562 Subs Hosp L2
--- NOTE | 2023-03-18 07:33 | CON.PCM.UR_ITS ---
Assessment & Plan Assessment/Plan (1) Urolithiasis: QUALIFIERS: Urinary calculus location: ureter Qualified Code(s): N20.1 - Calculus of ureter PLAN: Plan for left extracorporeal shockwave lithotripsy for stone in the proximal left ureter possible stent HPI Consult Data Date of Consult: 03/18/23 HPI Narrative Reason for Consultation: Obstructing left renal calculus HPI Narrative: RASHAD KEENE, is a 53 M who presents with severe pain from an obstructing stone in the proximal left ureter he was admitted to the hospital for pain control. We will make the patient n.p.o. for surgery plan to take him to surgery today for lithotripsy. [facility] Medical History Bilateral pulmonary embolism Former tobacco use History of testicular cancer Restrictive lung disease Home Medications apixaban 5 mg tablet 5 mg PO BID blood thinner, hx DVT 06/25/21 [History Last Taken 06/25/21] furosemide 20 mg tablet 20 mg PO DAILY water pill 03/18/23 [History Last Taken Unknown] hydrocodone-acetaminophen 5-325mg 5mg-325mg 1 tab PO Q4H PRN PRN Pain 2 days #15 TABLETS 03/18/23 [Rx Last Taken Unknown] rosuvastatin 5 mg tablet 5 mg PO DAILY cholesterol 03/18/23 [History Last Taken Unknown] tamsulosin 0.4 mg capsule (Flomax) 0.4 mg PO DAILY #7 caps 03/18/23 [Rx Last Taken Unknown] Allergy/AdvReac Type Severity Reaction Status Date / Time No Known Allergies Allergy Verified 07/30/20 14:24 Family History Mother Cancer Father VTE (venous thromboembolism) Surgical History H/O abdominal surgery H/O unilateral orchiectomy S/P herniorrhaphy Social History household members: spouse Smoking Status: Former smoker alcohol intake: current details: Occasionally substance use type: does not use ROS Constitutional Constitutional: Denies chills, fever(s) or malaise Eyes Eyes: Denies blurry vision or change in vision ENT HEENT: Reports none Cardiovascular Cardiovascular: Denies chest pain or palpitations Respiratory/Chest Respiratory/Chest: Denies cough or shortness of breath with exertion Gastrointestinal Gastrointestinal: Denies abdominal pain, constipation or diarrhea Musculoskeletal Musculoskeletal: Denies back pain, joint stiffness or joint swelling Integumentary Integumentary: Denies dry skin, jaundice, lesions or rash Neurologic Neurologic: Denies confusion, syncope or weakness Psychiatric Psychiatric: Reports none; Denies anxiety or depression Endocrine Endocrinology: Denies excessive sweating, fatigue or flushing Hematologic/Lymphatic Hematologic/Lymphatic: Denies anemia, easy bleeding or easy bruising Physical Exam Const alert and oriented x3 General Appearance: cooperative HEENT normocephalic, head/scalp atraumatic, EAC's normal and TM's normal bilaterally Eyes PERRL and EOMs intact bilaterally Pupil: sluggish Neck no lymphadenopathy, supple and no JVD General: trachea midline Lymph Lymphatic: no lymphadenopathy noted, lymphedema and lymphadenopathy Resp normal respiratory effort, normal air movement and clear to auscultation bilaterally Cardio regular rate, regular rhythm and peripheral pulses 2+ throughout GI soft to palpation, non-tender and non-distended Extremity normal capillary refill and no clubbing, cyanosis or edema General Extremity: no tenderness to palpation of joints or extremities Skin no rashes or lesions noted General Skin Exam: turgor normal Lesions: no lesions Rashes: no rashes Neuro CN's II-XII intact bilaterally Speech: speech normal Motor Exam: strength 5/5 throughout; Negative for general weakness Psych thought process normal, cooperative and affect normal Appearance: appropriate Medical Records Data Attestation: I reviewed the patient's medical records Lab / Micro Data 03/18/23 00:20 03/18/23 00:20 Labs: Laboratory Results - last 24 hr 03/18/23 00:20: WBC 9.7, RBC 5.38, Hgb 16.1, Hct 45.0, MCV 83.6, MCH 29.9, MCHC 35.8, RDW Std Deviation 38.2, RDW Coeff of Uriel 12.6, Plt Count 243, MPV 9.2, Immature Gran % (Auto) 0.900, Neut % (Auto) 59.8, Lymph % (Auto) 29.0, [place] % (Auto) 7.8, Eos % (Auto) 1.7, Baso % (Auto) 0.8, Absolute Neuts (auto) 5.8, Absolute Lymphs (auto) 2.82, Nucleated RBC % 0, Sodium 139, Potassium 3.4 L, Chloride 105, Carbon Dioxide 24.0, Anion Gap 10, BUN 11, Creatinine 1.74 H, Estim Creat Clear Calc 51.86, Est GFR (MDRD) Af Amer 53 L, Est GFR (MDRD) Non-Af 44 L, BUN/Creatinine Ratio 6.3 L, Glucose 235 H, Calcium 9.2, Magnesium 1.7 03/18/23 01:39: Urine Color Yellow, Urine Clarity Clear, Urine pH 6.0, Ur Specific [place] 1.020, Urine Protein 30 H, Urine Glucose (UA) 1000 H, Urine Ketones 5 H, Urine Occult Blood 250 H, Urine Nitrite Negative, Urine Bilirubin Negative, Urine Urobilinogen 1 H, Ur Leukocyte Esterase Negative, Urine RBC 10- 25 SEEN, Urine WBC 0 SEEN, Ur Squamous Epith Cells 0 SEEN, Urine Bacteria 1+, Urine Mucus 0 SEEN 03/18/23 06:42: POC Glucose 195 H Radiology Impression Abdomen/Pelvis CT 03/18/23 00:17 IMPRESSION: 1. 5 mm mid left ureteral calculus resulting in mild left-sided hydronephrosis. 2. Nonobstructing by mm right renal calculus. 3. Distal descending and proximal sigmoid colonic diverticulosis without evidence of acute diverticulitis. 4. 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 5. Cholelithiasis without evidence of acute cholecystitis. 6. Small fat-containing umbilical hernia without bowel involvement. 7. Fat-containing left inguinal hernia without bowel involvement. Electronically Signed: Parveen Avery MD at 1:47 EDT ,
[2023-03-18 07:51] LABS: ALB/GLOB Ratio 0.8 RATIO (0.9-2.4); AST(SGOT) 59 U/L (15-37); Alanine Aminotransfer ALT/SGPT 102 U/L (16-61); Albumin, Serum 2.8 g/dL (3.2-5.0); Alkaline Phosphatase 78 U/L (45-117); Anion Gap 34 (5-15); BUN 11 mg/dL (7-18); BUN/Creat Ratio 7.4 RATIO (10-20); Calcium,Total 7.4 mg/dL (8.5-10.1); Chloride 89 mmol/L (98-107); Creatinine, Serum 1.49 mg/dL (0.70-1.30); EST Glomerular Filtration Rate 53 mL/min (>60); Est Glom Filt Rate - Afr Amer 64 mL/min (>60); Estimated Creatinine Clearance 60.56 ml/min; Globulin 3.5 g/dL (2.2-4.2); Glucose 188 mg/dL (74-106); Potassium 3.4 mmol/L (3.5-5.1); Protein, Total 6.3 g/dL (6.4-8.2); Sodium Level 146 mmol/L (136-145)
[2023-03-18] MEDS: KCL 40mEq in 0.9% NS 40 MEQ/1,000 ML IV.SOLN 100 MEQ IV ×2 (08:09→21:51)
[2023-03-18] MEDS: Acetaminophen 325 MG Tablet 650 MG PO (08:21)
[2023-03-18] MEDS: oxyCODONE 5 MG Tablet PO (08:21)
[2023-03-18] MEDS: Ceftriaxone 1 GM/50 ML BAG IV (08:23)
--- NOTE | 2023-03-18 08:53 | PCM.OPRPT ---
Report of Operation Date of Procedure: 03/18/23 Pre-Operative Diagnosis: Prostate cancer Post-Operative Diagnosis: The same Surgery/Procedure Performed:: Aborted robotic surgery Description of Surgical Findings:: This is a 52
[2023-03-18] MEDS: 0.9% Saline Lock 10 ML Syringe IV (11:26)
[2023-03-18 11:41] LABS: Bedside Glucose 189 mg/dL (74-106)
[2023-03-18] MEDS: 0.9% Normal Saline 1,000 ML 15 ML IV (13:06)
--- NOTE | 2023-03-18 13:47 | PCM.OPRPT ---
Report of Operation Date of Procedure: 03/18/23 Pre-Operative Diagnosis: Left obstructing ureteral calculi Post-Operative Diagnosis: The same Surgery/Procedure Performed:: Cystoscopy left retrograde pyelogram left ureteroscopy, left stent placement Description of Surgical Findings:: Patient was taken back to the operating room after smooth induction of anesthesia he was placed in dorsolithotomy position the penis vesicles were prepped and draped in usual sterile fashion went into the bladder with a 21 [place] rigid cystourethroscope the entire length the urethra is normal the prostate was normal inside the bladder was normal then cannulated the left ureteral orifice I then used a dual-lumen catheter and put 2 wires up the left ureter and then went over the first wire with a semirigid ureteroscope was able to get in the ureter away stopped but then they encountered a very narrow part of the ureter I could not go any further so I pulled the ureteroscope out and then I went on with a flexible ureteroscope was able to go to the ureter but again I could not get past the area that was narrowed. At this point I did not force anything decided to place a stent over the wire and loaded up a 6 x 26 cm stent and the stent was put up in the left kidney once the stent was in good position bladder was drained patient anesthetic was reversed and want to set him up in about 2 weeks to let the ureter dilate up to perform ureteroscopy and laser lithotripsy. Surgeon: Luis Ramos Type of Anesthesia: General Drains: stent Estimated Blood Loss (mL): 0 Admit VTE Documentation VTE Present on Admission: No VTE Mechan Device Prophylaxis: SCD's VTE Pharm Prophylaxis ordered?: No
--- NOTE | 2023-03-18 13:50 | DCINST_ITS ---
Discharge Instructions Diet Discharge Diet: No restrictions Activity Discharge Activity: Return to Normal Activity and May Not Drive (while taking narcotic pain medications.) Dressing / Incision Call your doctor if you observe: Fever of 101 or Higher Follow Up Care Please Follow Up With: Luis Ramos MD When: Call [phone] for an appointment after stent placement, get xray day of appt to check location of stone or see if stone passed. Test Results: Test results from this visit will be discussed in further detail at your follow- up appointment, if applicable. Discharge Plan Admission Admit Date/Time: 03/18/23 02:38 Primary Reason for Your Visit: kidney stone Attending Provider: Tamir Horowitz Primary Care Provider: Connor Alfaro Consulting Providers: Kendra Garcia; Luis Ramos Instructions Patient Instructions: ED Kidney Stone w/ Colic, ED Hyperglycemia New Susp Diabetes Discharge Orders/Prescriptions Prescriptions: New hydrocodone-acetaminophen [hydrocodone-acetaminophen] 5-325 mg tablet 1 tab PO Q4H PRN PRN (Reason: Pain) 2 Days Qty: 15 0RF tamsulosin [Flomax] 0.4 mg capsule 0.4 mg PO DAILY Qty: 7 0RF No Action apixaban 5 MG tablet 5 mg PO BID furosemide 20 mg tablet 20 mg PO DAILY rosuvastatin 5 mg tablet 5 mg PO DAILY Referrals / Follow Up: Luis Ramos MD [Med Staff - Active Staff] - 3-5 Days Connor Alfaro MD [Primary Care Provider] - 3-5 Days
[2023-03-18 15:50] LABS: Hemoglobin A1c 7.9 % (3.8-5.6)
[2023-03-18 17:09] LABS: Bedside Glucose 205 mg/dL (74-106)
[2023-03-18] MEDS: APIXABAN 5 MG TABLET PO (22:45)
[2023-03-18 23:05] LABS: Bedside Glucose 266 mg/dL (74-106)
[2023-03-19 04:00] VITALS: BP 109/75; PULSE 65; RESP 16; TEMP 36.7; O2SAT 98
[2023-03-19 05:52] VITALS: BMI 37.9
[2023-03-19 07:05] LABS: Bedside Glucose 209 mg/dL (74-106)
--- NOTE | 2023-03-19 07:12 | PCM.CONS.B ---
Consult Date of Consult: 03/19/23 Reason for Consult Status post cystoscopy and right stent placement and ureteroscopy but could not reach the stone in the ureter was too narrow to just place a stent. Pain is much better now he is comfortable he can go home and follow-up my office next week with an x-ray to see if the stone is passed or if still needs treatment with shockwave lithotripsy or ureteroscopy. So he can go home and make an appointment to see me next week with a KUB
[2023-03-19 07:32] VITALS: BP 127/83; PULSE 72; RESP 16; TEMP 36.6; O2SAT 97
--- NOTE | 2023-03-19 07:55 | DCINST_ITS ---
Discharge Instructions Diet Discharge Diet: No restrictions Activity Discharge Activity: Return to Normal Activity Weight Bearing Status: Weight bearing as tolerated Dressing / Incision Call your doctor if you observe: Fever of 101 or Higher, Coldness, Increased Pain, Numbness or Tingling, Change in Color, Inability to urinate, Inability to have a bowel movement, Shortness of breath, Dizziness, Fainting spells, Swelling in the ankles, Chest pain, Prolonged hiccupping, Increased palpitations (irregular heartbeat), Calf discomfort and Uncontrolled pain Follow Up Care Please Follow Up With: Luis Ramos MD When: IN 2 WEEKS Test Results: Test results from this visit will be discussed in further detail at your follow- up appointment, if applicable. Discharge Plan Admission Admit Date/Time: 03/18/23 02:38 Primary Reason for Your Visit: kidney stone, left ureteric calculus Attending Provider: Tamir Horowitz Primary Care Provider: Connor Alfaro Consulting Providers: Kendra Garcia; Luis Ramos Instructions Patient Instructions: ED Kidney Stone w/ Colic, ED Hyperglycemia New Susp Diabetes Discharge Orders/Prescriptions Prescriptions: New hydrocodone-acetaminophen [hydrocodone-acetaminophen] 5-325 mg tablet 1 tab PO Q4H PRN PRN (Reason: Pain) 2 Days Qty: 15 0RF tamsulosin [Flomax] 0.4 mg capsule 0.4 mg PO DAILY Qty: 7 0RF glipizide 5 mg tablet 5 mg PO BID 30 Days Qty: 60 0RF Continued apixaban 5 MG tablet 5 mg PO BID rosuvastatin 5 mg tablet 5 mg PO DAILY Held furosemide 20 mg tablet 20 mg PO DAILY Hold Instructions: Hold for 5 days until kidney function returns to normal. Other Ambulatory Orders: Abdomen Single View (Routine) Timeframe: 2 Weeks Facility: [facility] - Location: [facility] Ordered By: Dr. Luis Ramos Referrals / Follow Up: Luis Ramos MD [Med Staff - Active Staff] - 3-5 Days Connor Alfaro MD [Primary Care Provider] - 3-5 Days (For new onset diabetes mellitus. A1c 7.9 %. Started on glipizide. Consider starting metformin when kidney function returns to normal) Disposition Disposition (needs filled in before D/C Order can be placed): Home, Self Care
--- NOTE | 2023-03-19 08:45 | PCM.DC.SUM ---
Providers Date of Admission: 03/18/23 Date of Discharge: 03/19/23 Primary Care Physician: Dr. Connor Alfaro MD Consultations 03/18/23 07:25 Consult: Urology Routine Consulting Provider: Luis Ramos Reason for Consult: Left ureteral calculus causing hydronephrosis EMERGENT Consult: No MD Notified: Yes Date Notified: 03/18/23 Time Notified: 07:26 Method of Notification: Verbal Reason For Visit: NEPHROLITHIASIS Diagnosis Discharge Diagnosis (1) Urolithiasis: Status: Acute Code(s): N20.9 - Urinary calculus, unspecified Qualifiers: Urinary calculus location: ureter Qualified Code(s): N20.1 - Calculus of ureter Plan The patient is a 53 y/o M who was admitted on 03/18/23 with history of persistent ongoing left flank pain x 3 days with nausea and emesis associated with no fevers or chills with no history of previous kidney stones #1. Acute Flank Pain secondary to Acute Nephrolithiasis, Acute UTI: Patient admitted to [facility] floor. On Flomax. Urologist consulted. CT abdomen individually reviewed and shows 5 mm calculus in the left mid ureter causing left hydronephrosis. Pain did not relieve in 3 days but worsening therefore probably might not pass spontaneously. Patient has nonobstructive 5 mm calcified stone in the mid right renal pelvis. No right-sided hydronephrosis. Patient had cystoscopy with left retrograde pyelogram ureteroscopy and left stent placement. It was found to have left obstructing ureteric calculi. Continue IV antibiotics ceftriaxone. Urine culture ordered. 03/19: I have low suspicion of UTI as patient does not have symptoms of increased frequency or urgency, dysuria. UA showed 0 WBC, nitrite and LE negative. RBC 2025 cells. Patient had 2 days of empiric IV ceftriaxone because of obstructed left ureteric stone. Patient had stenting of the left ureter and advised to follow-up with Dr. Ramos in 1 week for possible lithotripsy. #2. Elevated BP without HTN diagnosis: Admission ED BP elevated, potentially pain related given acute presentation, continue to monitor and add oral regimen if appropriate, as needed IV hydralazine in the interim. Patient blood pressure is normal. Advised follow-up with PCP for either ambulatory or home BP monitoring for formal diagnosis of hypertension. #3. RODRIGUEZ on Chronic Kidney Disease Stage IIIa: Admission BUN/Cr 1.74, baseline renal function 1.2-1.5, repeat renal function shows improvement 1.49. Avoid nephrotoxic medications. Patient advised to have BMP in 1 week and follow-up with PCP. #4. Hyperglycemia: Admission glucose 235, urinalysis with thousand glucose, will obtain hemoglobin A1c, in the interim will place on ADA diet with Accu-Cheks with insulin sliding scale. If notable HgBA1c would add nutrition consultation for education and teaching for new onset diabetes. 03/19: Patient random blood glucose more than 200. A1c 7.9%. As patient creatinine still improving, cannot give metformin. Patient discharged on glipizide 5 mg twice daily. Advised to follow-up PCP in 2 weeks. #5. Hypokalemia: Admission K+ 3.4, magnesium level requested, supplementation given, Potassium was replaced. #6. 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 #7. Obesity: Weight loss and lifestyle changes encouraged. #8. Former tobacco use: Encourage continued tobacco cessation. #9. History of VTE: Patient with history of DVT, PE, continue home apixaban regimen. #10. DVT prophylaxis: We will continue patient home apixaban regimen. Discharge medication reconciliation done. Discharge follow-up instructions completed. Discharge process discussed with the patient and all questions were answered to patient's satisfaction. Total time spent, exact 35 minutes on discharge meds reconciliation, examination, coordination of care with nurses and ancillary staff, review of imaging and blood test and discussion with the patient on follow-up instructions. Clinical Impression(s) from Imaging Studies Abdomen/Pelvis CT 03/18/23 00:17 IMPRESSION: 1. 5 mm mid left ureteral calculus resulting in mild left-sided hydronephrosis. 2. Nonobstructing by mm right renal calculus. 3. Distal descending and proximal sigmoid colonic diverticulosis without evidence of acute diverticulitis. 4. 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 5. Cholelithiasis without evidence of acute cholecystitis. 6. Small fat-containing umbilical hernia without bowel involvement. 7. Fat-containing left inguinal hernia without bowel involvement. Electronically Signed: Parveen Avery MD at 1:47 EDT , Medications at Discharge Home Medications apixaban 5 mg tablet 5 mg PO BID blood thinner, hx DVT 06/25/21 furosemide 20 mg tablet 20 mg PO DAILY water pill 03/18/23 hydrocodone-acetaminophen 5-325mg 5mg-325mg 1 tab PO Q4H PRN PRN Pain 2 days #15 TABLETS 03/18/23 rosuvastatin 5 mg tablet 5 mg PO DAILY cholesterol 03/18/23 tamsulosin 0.4 mg capsule (Flomax) 0.4 mg PO DAILY #7 caps 03/18/23 glipizide 5 mg tablet 5 mg PO BID 30 days #60 tabs 03/19/23 Physical Exam Narrative Seen and examined. Patient does not have fever. Left flank pain with radiation to upper abdomen has most resolved. He feels mild pain on pinching or pushing. No prior history of kidney stone. No history of urologic procedure in the past. Denies burning micturition, increased frequency or urgency or hematuria. No dribbling of urine/incontinence. Physical exam General: Alert, Oriented x3, Cooperative HEENT: Atraumatic, PERRLA, EOMI, Normocephalic Oral: No Gingival or Mucosal Lesions/ Ulcerations Neck: Supple, No JVD, Negative Carotid Bruits Lungs: Air entry diminished in bilateral lung bases. No crepitation/rhonchi Cardiovascular: Regular rate, Regular Rhythm, Normal S1, Normal S2, No murmurs Abdomen: Bowel Sounds Present, Soft, Non-Distended : Mild deep tenderness on left flank. No hematuria. No suprapubic tenderness. Extremities: No edema, Capillary Refill Less than 3 Seconds Skin: No rashes, No breakdown Musculoskeletal: No Tenderness to Palpation of Joints or Extremities Neurological: Cranial nerves II-XII grossly intact, DTR 2+/4 and Symmetrical, Neuro grossly intact Psych/Mental Status: Normal Affect, Appropriate. Weight / BMI Weight Weight: 264 lb 15.93 oz Body Mass Index (BMI) 37.9 ABG / Lab / Microbiology Data 03/18/23 00:20 03/18/23 06:40 Laboratory: Laboratory Results - last 24 hr 03/18/23 00:20: Hemoglobin A1c 7.9 H 03/18/23 06:40: WBC Cancelled, Corrected WBC Cancelled, RBC Cancelled, Hgb Cancelled, Hct Cancelled, MCV Cancelled, MCH Cancelled, MCHC Cancelled, RDW Std Deviation Cancelled, RDW Coeff of Uriel Cancelled, Plt Count Cancelled, MPV Cancelled, Immature Gran % (Auto) Cancelled, Neut % (Auto) Cancelled, Lymph % (Auto) Cancelled, Letcher % (Auto) Cancelled, Eos % (Auto) Cancelled, Baso % (Auto) Cancelled, Absolute Neuts (auto) Cancelled, Absolute Lymphs (auto) Cancelled, Total Counted Cancelled, Neutrophils % (Manual) Cancelled, Band Neutrophils % Cancelled, Lymphocytes % (Manual) Cancelled, Monocytes % (Manual) Cancelled, Eosinophils % (Manual) Cancelled, Basophils % (Manual) Cancelled, Metamyelocytes % Cancelled, Myelocytes % Cancelled, Promyelocytes % Cancelled, Blast Cells % Cancelled, Plasma Cell % (Manual) Cancelled, Other Cells % Cancelled, Nucleated RBC % Cancelled, Nucleated RBCs/100 WBC Cancelled, Differential Comment Cancelled, Diff Path Review Cancelled, Hypersegmented Neuts Cancelled, Atypical Lymphocytes Cancelled, Reactive Lymphocytes Cancelled, Smudge Cells Cancelled, Toxic Granulation Cancelled, Toxic Vacuolation Cancelled, Dohle Bodies Cancelled, Rory Rods Cancelled, Platelet Estimate Cancelled, Plt Morphology Comment Cancelled, RBC Morphology Cancelled 03/18/23 06:40: RBC Morphology Cancelled, Polychromasia Cancelled, Hypochromasia Cancelled, Poikilocytosis Cancelled, Basophilic Stippling Cancelled, Anisocytosis Cancelled, Microcytosis Cancelled, Macrocytosis Cancelled, Spherocytes Cancelled, Sickle Cells Cancelled, Target Cells Cancelled, Tear Drop Cells Cancelled, Ovalocytes Cancelled, Stomatocytes Cancelled, Marin-Tillar Bodies Cancelled, Kiran Cells Cancelled, Bite Cells Cancelled, Crenated Cell Cancelled, Acanthocytes (Spur) Cancelled, Rouleaux Cancelled, Schistocytes Cancelled, Hemoglobin A1c Cancelled 03/18/23 11:16: POC Glucose 189 H 03/18/23 16:51: POC Glucose 205 H 03/18/23 22:42: POC Glucose 266 H 03/19/23 06:03: POC Glucose 209 H D/C Instructions Discharge Diet: No restrictions Weight Bearing Status: Weight bearing as tolerated Call your doctor if you observe: Fever of 101 or Higher, Coldness, Increased Pain, Numbness or Tingling, Change in Color, Inability to urinate, Inability to have a bowel movement, Shortness of breath, Dizziness, Fainting spells, Swelling in the ankles, Chest pain, Prolonged hiccupping, Increased palpitations (irregular heartbeat), Calf discomfort and Uncontrolled pain Please Follow Up With: Luis Ramos MD When: IN 2 WEEKS Meaningful Use Info Meaningful Use Diagnoses (Choose all that apply): None applicable Discharge Plan Admission Admit Date/Time: 03/18/23 02:38 Primary Reason for Your Visit: kidney stone, left ureteric calculus Attending Provider: Tamir Horowitz Primary Care Provider: Connor Alfaro Consulting Providers: Kendra Garcia; Luis Ramos Instructions Patient Instructions: ED Kidney Stone w/ Colic, ED Hyperglycemia New Susp Diabetes Discharge Orders/Prescriptions Prescriptions: New hydrocodone-acetaminophen [hydrocodone-acetaminophen] 5-325 mg tablet 1 tab PO Q4H PRN PRN (Reason: Pain) 2 Days Qty: 15 0RF tamsulosin [Flomax] 0.4 mg capsule 0.4 mg PO DAILY Qty: 7 0RF glipizide 5 mg tablet 5 mg PO BID 30 Days Qty: 60 0RF Continued apixaban 5 MG tablet 5 mg PO BID rosuvastatin 5 mg tablet 5 mg PO DAILY Held furosemide 20 mg tablet 20 mg PO DAILY Hold Instructions: Hold for 5 days until kidney function returns to normal. Other Ambulatory Orders: Abdomen Single View (Routine) Timeframe: 2 Weeks Facility: [facility] - Location: [facility] Ordered By: Dr. Luis Ramos Referrals / Follow Up: Luis Ramos MD [Med Staff - Active Staff] - 3-5 Days Connor Alfaro MD [Primary Care Provider] - 3-5 Days (For new onset diabetes mellitus. A1c 7.9 %. Started on glipizide. Consider starting metformin when kidney function returns to normal) Disposition Disposition (needs filled in before D/C Order can be placed): Home, Self Care Charges/Coding Visit Charges Inpatient E&M: 24783 Disch Hosp >30min
--- NOTE | 2023-03-19 09:36 | PHA.DC.MR.R ---
Pharmacy [place] Med Reconciliation Pharmacy Service has performed discharge medication reconciliation for this patient. [place] counselling materials prepared, but pt left prior to counselling. The patient's discharge medication list was reviewed for discrepancies and discrepancies were resolved. Medications at Discharge Home Medications apixaban 5 mg tablet 5 mg PO BID blood thinner, hx DVT 06/25/21 furosemide 20 mg tablet 20 mg PO DAILY water pill 03/18/23 hydrocodone-acetaminophen 5-325mg 5mg-325mg 1 tab PO Q4H PRN PRN Pain 2 days #15 TABLETS 03/18/23 rosuvastatin 5 mg tablet 5 mg PO DAILY cholesterol 03/18/23 tamsulosin 0.4 mg capsule (Flomax) 0.4 mg PO DAILY #7 caps 03/18/23 glipizide 5 mg tablet 5 mg PO BID 30 days #60 tabs 03/19/23
== END 2023-03-19 08:20 | disposition home or self-care (01) ==
LOC: ED 02:24 → MS3 04:14
PROVIDERS: Urology; Admitting Provider Family Medicine; Emergency Provider Emergency Medicine; PCP Family Medicine; Visit Provider Internal Medicine
PROC: 0TJ98ZZ Inspection of Ureter, Via Natural or Artificial Opening Endoscopic (ICD-10-PCS; CPT 52352; principal; 2023-03-18 16:10)
DX: N13.6 Pyonephrosis (principal); N18.31 Chronic kidney disease, stage 3a; R73.9 Hyperglycemia, unspecified; E87.6 Hypokalemia; Z79.01 Long term (current) use of anticoagulants; Z87.891 Personal history of nicotine dependence; R03.0 Elevated blood-pressure reading, without diagnosis of hypertension; Z85.47 Personal history of malignant neoplasm of testis; Z79.899 Other long term (current) drug therapy; Z86.711 Personal history of pulmonary embolism; E66.9 Obesity, unspecified; Z68.38 Body mass index [BMI] 38.0-38.9, adult
CPT/HCPCS: 52332; 00910; 36415; 74176; 76000; 80048; 80053; 81001; 82962; 83036; 83735; 85025; 87086; 87088; 96361; 96365; 96366; 96367; 96375; 96376; 99221; 99252; 99283; J7030; A4216; C1758; C1769; C2617; G0378; G0463; J2405

== ENCOUNTER → 2023-03-24 | Outpatient (CLI) | payer OTHER, SELFPAY ==
--- NOTE | 2023-03-24 08:11 | RAD_ITS ---
EXAM: XR ABDOMEN, 1 VIEW CLINICAL INDICATION: s/p stent for stone TECHNIQUE: Frontal supine view of the abdomen/pelvis. COMPARISON: No relevant prior studies available. FINDINGS: LOWER THORAX: No acute pathology. INTRAPERITONEAL SPACE: Evidence of surgical mesh repair is present. GASTROINTESTINAL TRACT: Unremarkable. Non-obstructive. No bowel or stomach distention. ORGANS: Unremarkable as visualized. No organomegaly. No abnormal calcifications. BONES/JOINTS: No acute pathology. SOFT TISSUES: No acute pathology. TUBES, LINES AND DEVICES: Left ureteral stent is in place. Surgical clips are seen in the left upper abdomen. RAD/Abdomen Single View IMPRESSION: Left ureteral stent in place. Electronically Signed: Anjel Woodard MD at 16:54 EDT ,
== END | disposition home or self-care (01) ==
LOC: RAD 08:05
PROVIDERS: PCP Family Medicine; Referring Provider Urology; Visit Provider Urology
DX: Z98.890 Other specified postprocedural states (principal)
CPT/HCPCS: 74018

== ENCOUNTER 2024-10-26 00:23 | Emergency (ER) | payer OTHER, SELFPAY ==
[2024-10-26 00:25] VITALS: BP 179/84; PULSE 48; RESP 16; TEMP 36.6; O2SAT 98; BMI 32.5
[2024-10-26 00:31] VITALS: BP 142/76; PULSE 66; RESP 16; O2SAT 97
--- NOTE | 2024-10-26 00:51 | EX.ED.DYSGE1 ---
HPI History of Present Illness Chief Complaint: Lower Extremity Injury Informant: patient Narrative Narrative: Patient is a 54-year-old male with previous history of left leg lymphedema as well as previous DVT and PE. He states he stopped all of his medication such as his Eliquis secondary to side effects. He reports that today he has noticed pain in the left inguinal region that is worse with motion. He reports however that there was no associated trauma or excessive activity. He does report a history of diverticulitis as well as kidney stone but states this feels different in nature. He also denies any dysuria. He states he did take Eliquis this evening as he concerned that his pain could be from a DVT and presents as he is requesting ultrasound/venous duplex to confirm or deny blood clot as the cause of his pain [facility] Medical History (Updated 10/26/24 @ 01:[address] Filippo Izaguirre DO) Hypercholesteremia Hyperglycemia Restrictive lung disease Former tobacco use History of testicular cancer Bilateral pulmonary embolism Home Medications ?Medication ?Instructions ?Recorded ?Last Taken ?Type apixaban 5 mg tablet 5 mg PO BID blood thinner, hx DVT 06/25/21 10/25/24 21:00 History Allergy/AdvReac Type Severity Reaction Status Date / Time No Known Allergies Allergy Verified 10/26/24 00:29 Family History Mother Cancer Father VTE (venous thromboembolism) Surgical History H/O abdominal surgery H/O unilateral orchiectomy S/P herniorrhaphy Social History household members: spouse Smoking Status: Former smoker alcohol intake: current details: Occasionally substance use type: does not use ROS ROS ED Constitutional Constitutional ED: Denies chills or fever(s) Eyes Eyes: Denies blurry vision or change in vision ENT ENT ED: Denies sore throat Cardiovascular Cardiovascular: Denies chest pain, palpitations or racing heartbeat Respiratory/Chest Respiratory/Chest: Denies cough or dyspnea Gastrointestinal Gastrointestinal: Reports abdominal pain; Denies diarrhea, nausea or vomiting Genitourinary Genitourinary ED: Denies dysuria or hematuria Musculoskeletal Musculoskeletal: Reports other Details: Positive left inguinal/leg pain ; Denies back pain or myalgias Integumentary Denies rash Neurologic Neurologic: Denies headache(s) Hematologic/Lymphatic Hematologic/Lymphatic: Denies easy bleeding or easy bruising EXAM Physical Exam Const Vital Signs: 10/26/24 00:25 10/26/24 00:31 Temperature 97.8 F Temperature Source Oral Pulse Rate 48 L 66 Respiratory Rate 16 16 Blood Pressure 179/84 H 142/76 H Blood Pressure Mean 115 98 Pulse Ox 98 97 Oxygen Delivery Method Room Air Room Air Positive well nourished and well developed General Appearance ED: well developed; Negative for pallor HEENT HEENT Narrative: Normocephalic atraumatic Eyes PERRL and EOMs intact bilaterally General Eye ED: Negative for scleral icterus Neck supple Resp normal respiratory effort and clear to auscultation bilaterally Cardio regular rate and regular rhythm Rate: other Other Details: Radial and carotid pulses are equal and symmetric GI normal to inspection, nondistended, normoactive bowel sounds, non-tender, non-distended and no masses GI Narrative: No voluntary guarding or rigidity or pulsatile mass Auscultation: normoactive bowel sounds Palpation: soft Narrative: No obvious direct or indirect hernia palpated No overlying soft tissue changes to suggest Mague's gangrene No blood or discharge from the urethral meatus Patient does have left testicular swelling but states this is chronic for him Back/Spine no CVA tenderness Extremity Extremity Narrative: Chronic left leg swelling when compared to right consistent with history of lymphedema All compartments are soft and compressible going against compartment syndrome Negative Homans' sign bilaterally Left lower extremity is neurovascularly intact Neuro oriented x3, CN's II-XII intact bilaterally and no sensory deficits noted Sensorium / Orientation: alert Motor Exam: strength 5/5 throughout Psych mental status grossly normal Skin no rashes or lesions noted and no wounds General Skin Exam: Negative for jaundice or pallor MDM MDM MDM Narrative Medical decision making narrative: Patient arrived to the ER hypertensive but otherwise with stable vitals. He reported left inguinal/leg pain without trauma that was worse with motion. We discussed that his symptoms could be related to atypical presentation for kidney stone versus UTI versus pyelonephritis versus diverticulitis. There is also concern this could be related to a direct or indirect hernia versus epididymitis versus DVT as the patient states he has not been taking his anticoagulation medication secondary to side effects. At this time of night I cannot perform a venous duplex. The patient does not have findings concerning for overlying soft tissue infection such as cellulitis or abscess nor other findings to suggest compartment syndrome or arterial occlusion. I discussed with patient performing labs and a CT scan of his abdomen and pelvis to ensure that there is no atypical presentation such as the differential listed above. Patient states that however his main concern was getting a venous duplex and as that cannot be performed at this time of night he will simply take an outpatient order form and follow-up with his family doctor or return to the ER if needed. As the patient is already taken 10 mg of Eliquis I do not feel the need for a injection of Lovenox and therefore he will be discharged with an order form for outpatient venous duplex based on his medication noncompliance and concern for DVT History & Record Review Discussion w/independent historian: Patient Discharge Plan Triage Chief Complaint: Lower Extremity Injury ED Provider: Filippo Izaguirre Dx/Rx/DC Orders Clinical Impression: Left leg pain, History of deep vein thrombosis, Lymphedema of left lower extremity Instructions: ED Deep Vein Thrombosis (DVT) Prescriptions: No Action apixaban 5 MG tablet 5 mg PO BID Patient Comments: TOOK 10 MG 10/25/2024 Other Ambulatory Orders: Venous Duplex US, Unilateral (Stat) Facility: [facility] - Location: [facility] Ordered By: Dr. Filippo Izaguirre Primary Care Provider: Connor Alfaro Referrals: Connor Alfaro MD [Primary Care Provider] - Activity Restrictions/Additional Instructions: Because of your previous history of blood clots and your nontraumatic left leg pain please obtain your outpatient venous duplex study to ensure that the symptoms are not due to a new onset DVT. If you have any further concerns return to the ER for repeat evaluation Print Language: [place] Disposition Disposition: Home, Self Care Discharge Date/Time: 10/26/24 01:03
== END 2024-10-26 01:03 | disposition home or self-care (01) ==
LOC: ED 00:59
PROVIDERS: Emergency Provider Emergency Medicine; PCP Family Medicine; Visit Provider Emergency Medicine
DX: M79.605 Pain in left leg (principal); I89.0 Lymphedema, not elsewhere classified; E78.00 Pure hypercholesterolemia, unspecified; Z79.01 Long term (current) use of anticoagulants; Z86.718 Personal history of other venous thrombosis and embolism; Z86.711 Personal history of pulmonary embolism; Z87.891 Personal history of nicotine dependence
CPT/HCPCS: 99282

== ENCOUNTER → 2024-10-26 | Outpatient (CLI) | payer OTHER, SELFPAY ==
--- NOTE | 2024-10-26 12:43 | VDLE_ITS ---
Reason For Study Reason For Study: Left leg pain RIGHT LEFT CFV is compressible, spontaneous, phasic, competent GSV is normal. and demonstrates normal augmentation. CFV is compressible, spontaneous, phasic, competent, Procedure and demonstrates normal augmentation. This is a venous duplex using B-mode, color flow and FV is compressible, spontaneous, phasic, competent spectral Doppler. and demonstrates normal augmentation. Exam performed in department. POP V is compressible, spontaneous, phasic, competent A preliminary report was called and/or faxed to PCP: and demonstrates normal augmentation. Dr. Alfaro. T/P Trunk is compressible. PTV is compressible. LT PerV is compressible. VL/Venous Duplex US, Unilateral Interpretation Summary Deep veins of the left lower extremity are patent and compressible segmentally. There is no evidence of left lower extremity deep vein thrombosis. Valvular competence appears intact within the p roximal deep venous system on the left . The left great saphenous vein appears patent and compressible segmentally. The right common femoral vein is patent and compressible . Ordering Physician: Filippo Izaguirre Referring Physician: Connor Alfaro Performed By: Stacia Alonzo RVT
== END | disposition home or self-care (01) ==
LOC: CVS 12:40
PROVIDERS: PCP Family Medicine; Referring Provider Emergency Medicine; Visit Provider Emergency Medicine
DX: M79.605 Pain in left leg (principal)
CPT/HCPCS: 93971

== ENCOUNTER → 2025-01-25 | Outpatient (CLI) | payer OTHER, SELFPAY ==
--- NOTE | 2025-01-25 09:16 | RAD_ITS ---
PROCEDURE: KNEE 4 OR MORE VIEWS 01/25/2025 REASON FOR EXAM: KNEE PAIN TECHNIQUE: Four views of the left knee COMPARISON: None RAD/Knee 4 or More Views IMPRESSION: No acute fracture or dislocations. [id number] soft tissue edema. No lar ge joint effusion. No radiographic foreign body. Reading Location: [id number]
--- OUTSIDE RECORDS SUMMARY | 2025-01-25 10:53 | XMS RPT_ITS | CCD ---
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 abnormalities. Degenerative changes of the spine. Bibasilar atelectasis/scarring, right greater than left. Pleural thickening along the posterior lower lobes bilaterally. No pericardial or pleural effusion. Diffusely hypodense liver, which may indicate hepatic steatosis. Cholelithiasis. The spleen, pancreas, and adrenal glands are unremarkable. Bilateral nonobstructive nephrolithiasis measuring up to 0.5 cm on the right. 1.9 cm hypodense lesion in the right mid polar region appears mildly hyperdense measuring up to 34 HU. Additional subcentimeter hypodense lesions bilaterally are too small to characterize, however likely represent small renal cysts. No evidence of hydronephrosis. Small areas of cortical scarring bilaterally, left greater than right. Under distended bladder limits evaluation. Mildly enlarged prostate. Pelvic phleboliths. Small hiatal hernia. The small bowel is unremarkable. Scattered colonic diverticulosis. There is haziness and fat stranding surrounding a diverticulum in the distal descending colon with adjacent wall thickening. No visualized pneumoperitoneum, pneumatosis, or abscess. The appendix is unremarkable. Atherosclerotic nonaneurysmal aorta. Surgical clips are visualized in the retroperitoneum. Haziness in the mesenteric root with multiple nonenlarged lymph nodes. No pathologically enlarged lymph nodes are identified. No free intraperitoneal air or fluid. Small fat containing left inguinal hernia. Postsurgical changes of the anterior abdominal wall. IMPRESSION: Diverticulosis with uncomplicated diverticulitis of the distal descending colon. No pneumatosis, intraperitoneal free air, or abscess is identified. Cholelithiasis. Nonobstructive bilateral nephrolithiasis. Haziness in the mesenteric root with multiple nonenlarged lymph nodes, which can be seen with mesenteric panniculitis. Follow-up imaging in 6 months to 1 year may be considered to rule out lymphoproliferative disorder. Mildly hyperdense right renal lesion may represent a proteinaceous or hemorrhagic cyst. If clinically indicated, nonemergent renal phase CT or MR may be used for further characterization. I have personally reviewed the images of this examination and agree with the resident's findings and interpretation. Interpreted by: Colin Dominguez Preliminary Report By: Marilu Dempsey Electronically signed By Colin Dominguez Dictated Date: 01/25/2024 9:45:15 PM Prelim Date: 01/25/2024 9:55:47 PM Sign Date: 01/25/2024 10:06:35 PM Ordering Provider: MARY CARMEN Bass [facility] ([place]) LABORATORYOrdered By: Juan Manuel Torres on 01-25-2024 Appearance (U) Clear (01/25/24 8:46 PM) Normal Clear AO Auto Urine SS Bilirubin Ql (U) Negative (01/25/24 8:46 PM) Normal Negative AO Auto Urine SS Color (U) Yellow (01/25/24 8:46 PM) Normal AO Auto Urine SS Glucose Test strip (U) [Mass/Vol] Negative Normal Negative AO Auto Urine SS Hemoglobin Auto test strip (U) [Mass/Vol] Negative (01/25/24 8:46 PM) Normal Negative AO Auto Urine SS Ketones Ql (U) Negative Normal Negative AO Auto Urine SS UA Leuk Est Negative (01/25/24 8:46 PM) Normal Negative AO Auto Urine SS UA Nitrite Negative (01/25/24 8:46 PM) Normal Negative AO Auto Urine SS UA pH 7.0 (01/25/24 8:46 PM) Normal 5.0 - 8.0 AO Auto Urine SS UA Protein Negative Normal Negative AO Auto Urine SS UA Spec Grav 1.025 (01/25/24 8:46 PM) Normal 1.015-1.025 AO Auto Urine SS UA Specimen Type Clean Catch (01/25/24 8:46 PM) Normal AO Auto Urine SS UA Urobilinogen 0.2 E.U./dL Normal 0.2-1.0 AO Auto Urine SS LABORATORYOrdered By: SYSTEM SYSTEM on 01-25-2024 Basophil, Absolute 0.1 103/mcL Normal 0.0 - 0.2 10^3/mcL AO Workflow SS Basophils/100 WBC (Bld) 0.5 % Normal 0.0 - 2.5 % AO Workflow SS Calcium [Mass/Vol] 8.8 mg/dL Normal 8.4 - 10. 2 mg/dL AO ADM SS Chloride [Moles/Vol] 100 mmol/L Normal 98 - 10 7 mmol/L AO ADM SS CO2 [Moles/Vol] 30 mmol/L High 22 - 29 mmol/L AO ADM SS Creatinine [Mass/Vol] 1.22 mg/dL Normal 0.70 - 1.30 mg/dL AO ADM SS Electrolyte Balance 9.0 mEq/L Normal 4.0 - 15 .0 mEq/L AO ADM SS Eosinophil, Absolute 0.2 103/mcL Normal 0.0 - 0 .4 10^3/mcL AO Workflow SS Eosinophils/100 WBC (Bld) 1.8 % Normal 0.0 - 7.0 % AO Workflow SS Erythrocyte distribution width (RBC) [Ratio] 13.5 % Normal 11.5 - 14.5 % AO Workflow SS GFR/1.73 sq M.predicted among blacks MDRD (S/P/Bld) [Vol rate/Area] 76 ml/min/1.73sqm Invalid Interpretation Code AO Chemistry S Comment on above: Interpretive Data: GFR Population mean for , Non- Americans Ages 20-29 = 116 mL/min/1.73 sq.m. Ages 30-39 = 107 mL/min/1.73 sq.m. Ages 40-49 = 99 mL/min/1.73 sq.m. Ages 50-59 = 93 mL/min/1.73 sq.m. Ages 60-69 = 85 mL/min/1.73 sq.m. Ages 70+ = 75 mL/min/1.73 sq.m. Chronic Kidney Disease: Less than 60 mL/min/1.73 square meters End Stage Renal Disease: Less than 15 mL/min/1.73 square meters GFR/1.73 sq M.predicted among non-blacks MDRD (S/P/Bld) [Vol rate/Area] 62 ml/min/1.73sqm Invalid Interpretation Code AO Chemistry S Comment on above: Interpretive Data: GFR Population mean for , Non- Americans Ages 20-29 = 116 mL/min/1.73 sq.m. Ages 30-39 = 107 mL/min/1.73 sq.m. Ages 40-49 = 99 mL/min/1.73 sq.m. Ages 50-59 = 93 mL/min/1.73 sq.m. Ages 60-69 = 85 mL/min/1.73 sq.m. Ages 70+ = 75 mL/min/1.73 sq.m. Chronic Kidney Disease: Less than 60 mL/min/1.73 square meters End Stage Renal Disease: Less than 15 mL/min/1.73 square meters Glucose [Mass/Vol] 120 mg/dL High 70 - 105 mg/dL AO ADM SS Hematocrit (Bld) [Volume fraction] 50.2 % Normal 42.0 - 52.0 % AO Workflow SS Hemoglobin (Bld) [Mass/Vol] 17.3 G/dL Normal 14.0 - 18.0 G/dL AO Workflow SS Lymphocyte, Absolute 2.1 103/mcL Normal 0.8 - 3 .9 10^3/mcL AO Workflow SS Lymphocytes/100 WBC (Bld) 17.8 % Normal 10.0 - 50.0 % AO Workflow SS MCH (RBC) [Entitic mass] 30.1 pg Normal 27.0 - 31.2 pg AO Workflow SS MCHC 34.5 G/dL Normal 31.8 - 35.4 G/dL AO Workflow SS MCV (RBC) [Entitic vol] 87.4 fL Normal 80.0 - 94.0 fL AO Workflow SS Monocyte distribution width Auto (Bld) [Entitic vol] 20.06 1 High 0.00 - 20.00 AO Workflow SS Comment on above: Result Comment: For adults in ED, MDW>20.0 may be associated with a higher risk of sepsis during the first 12hrs of hospital admission Monocyte, Absolute 1.0 103/mcL Normal 0.2 - 1.0 10^3/mcL AO Workflow SS Monocytes/100 WBC (Bld) 8.4 % Normal 1.7 - 13.0 % AO Workflow SS Neutrophil, Absolute 8.3 103/mcL High 2.9 - 6 .2 10^3/mcL AO Workflow SS Neutrophils/100 WBC (Bld) 71.5 % Normal 37.0 - 80.0 % AO Workflow SS Platelet mean volume (Bld) [Entitic vol] 7.4 fL Normal 7.4 - 10.4 fL AO Workflow SS Platelets (Bld) [#/Vol] 223 103/mcL Normal 130 - 400 10^3/mcL AO Workflow SS Potassium [Moles/Vol] 3.6 mmol/L Normal 3.5 - 5.1 mmol/L AO ADM SS RBC (Bld) [#/Vol] 5.75 106/mcL Normal 4.04 - 6.1 3 10^6/mcL AO Workflow SS Sodium [Moles/Vol] 139 mmol/L Normal 136 - 145 mmol/L AO ADM SS Urea nitrogen [Mass/Vol] 14 mg/dL Normal 7 - 18 mg/dL AO ADM SS Urea nitrogen/Creatinine [Mass ratio] 11 ratio Normal 7 - 27 ratio AO ADM SS WBC (Bld) [#/Vol] 11.6 103/mcL High 4.6 - 10.8 10^3/mcL AO Workflow SS UAon 01-25-2024 Color (U) Yellow Normal [facility] ([place]) Comment on above: Performed By: #### U A #### [address] [address] Glucose (U) [Mass/Vol] Negative Normal Negative [facility] ([place]) Comment on above: Performed By: #### U A #### [address] [address] Ketones Ql (U) Negative Normal Negative [facility] ([place]) Comment on above: Performed By: #### U A #### [address] [address] UA Appear Clear Normal Clear [facility] ([place]) Comment on above: Performed By: #### U A #### [address] [address] UA Blood Negative Normal Negative [facility] ([place] Comment on above: Performed By: #### U A #### [address] [address] UA Leuk Est Negative Normal Negative [facility] ([place]) Comment on above: Performed By: #### U A #### [address] [address] UA Nitrite Negative Normal Negative [facility] ([place] Comment on above: Performed By: #### U A #### [address] [address] UA pH 7.0 Normal 5.0 - 8.0 [facility] ([place]) Comment on above: Performed By: #### U A #### [address] [address] UA Protein Negative Normal Negative [facility] ([place]) Comment on above: Performed By: #### U A #### [address] [id number] [place], [place] [address] UA Spec Grav 1.025 Normal 1.015-1.025 [facility] ([place]) Comment on above: Performed By: #### U A #### [address] [address] UA Specimen Type Clean Catch Normal [facility] ([place]) Comment on above: Performed By: #### U A #### [address] [address] UA Urobilinogen 0.2 E.U./dL Normal 0.2-1.0 [facility] ([place]) Comment on above: Performed By: #### U A #### [address] [address] Urobilinogen (U) [Mass/Vol] Negative Normal Negative [facility] ([place] Comment on above: Performed By: #### U A #### [address] [address] [address] BRAIN W/O CONTRASTon - CT BRAIN W/O CONTRAST [place] [address] Patient: RASHAD BAUTISTA Phone#: : 1970 Age: 53 Gender: M Pt. Type: ER Account: [id number] Location: [facility] Ordering: NICOLE AMAYA Exam Date: 07/10/2023/17:11 Family Phys: CONNOR CR Charge Code: [id number] Physician: Gem Order #: [id number] Dose#: [id number] PROCEDURE: CT BRAIN WITHOUT CONTRAST COMPARISON: None. INDICATIONS: Trauma. TECHNIQUE: CT images were obtained without contrast material. All CT scans at this facility use dose modulation, iterative reconstruction, and/or weight based dosing when appropriate to reduce radiation dose to as low as reasonably achievable. IV CONTRAST: No IV contrast used,0ml TOTAL DOSE: 57.50 CTDIvol(mGy) FINDINGS: CEREBRUM: No edema, hemorrhage, mass, or inappropriate atrophy. CEREBELLUM: No edema, hemorrhage, mass, or inappropriate atrophy. BRAINSTEM: No edema, hemorrhage, mass, or inappropriate atrophy. CSF SPACES: Ventricles, cisterns, and sulci are appropriate for age. No hydrocephalus, subarachnoid hemorrhage, or mass. SKULL: No mass or other significant visible lesion. SINUSES: Limited views demonstrate no significant mucosal thickening or fluid. ORBITS: Limited views are unremarkable. OTHER: Material in the external auditory canals, likely cerumen. CONCLUSION: 1. No appreciable acute intracranial abnormality. Dictated by: Carla Vickers MD on 07/10/2023 at 17:42 Approved by: Carla Vickers MD on 07/10/2023 at 17:46 Normal [facility] CT CERVICAL W/O CONTRASTon 1 09-09-2022 CT CERVICAL W/O CONTRAST [place] [address] Patient: RASHAD BAUTISTA Phone#: : 1970 Age: 53 Gender: M Pt. Type: ER Account: [id number] Location: [facility] Ordering: NICOLE AMAYA Exam Date: 07/10/2023/17:11 Family Phys: CONNRO CR Charge Code: [id number] Physician: Gem Order #: [id number] Dose#: 12.1 PROCEDURE: CT CERVICAL WITHOUT CONTRAST COMPARISON: None. INDICATIONS: Trauma. TECHNIQUE: Multi-planar CT images were created without intravenous contrast. All CT scans at this facility use dose modulation, iterative reconstruction, and/or weight-based dosing when appropriate to reduce radiation dose to as low as reasonably achievable. IV CONTRAST: No IV contrast used,0ml TOTAL DOSE: 12.1 CTDIvol(mGy) FINDINGS: CRANIOCERVICAL AREA: Normal foramen magnum with no Chiari malformation. PARASPINAL AREA: Normal with no visible mass. BONES: Vertebral bodies are maintained in height and alignment. No fracture or subluxation. The dens is intact. The lateral masses are symmetric. CERVICAL DISC LEVELS: C2-C3: No significant disc/facet abnormality, spinal stenosis, or foraminal stenosis. C3-C4: Disc height loss contributes to mild bilateral foraminal narrowing C4-C5: No significant disc/facet abnormality, spinal stenosis, or foraminal stenosis. C5-C6: No significant disc/facet abnormality, spinal stenosis, or foraminal stenosis. C6-C7: No significant disc/facet abnormality, spinal stenosis, or foraminal stenosis. C7-T1: No significant disc/facet abnormality, spinal stenosis, or foraminal stenosis. CONCLUSION: 1. No acute osseous abnormality 2. C3-4 mild disc height loss and mild foraminal narrowing Dictated by: Carla Vickers MD on 07/10/2023 at 17:37 Approved by: Carla Vickers MD on 07/10/2023 at 17:41 Normal [facility] CT CHEST/ABD/PELVIS C-on CT CHEST/ABD/PELVIS C- [place] [address] Patient: RASHAD BAUTISTA Phone#: : 1970 Age: 53 Gender: M Pt. Type: ER Account: [id number] Location: [facility] Ordering: NICOLE AMAAY Exam Date: 07/10/2023/17:15 Family Phys: CONNOR CR Charge Code: [id number] Physician: Gem Order #: [id number] Dose#: [id number] PROCEDURE: CT CHEST/ABD/PELVIS WO COMPARISON: None. INDICATIONS: Trauma. TECHNIQUE: CT images were obtained without the administration of intravenous contrast material. All CT scans at this facility use dose modulation, iterative reconstruction, and/or weight based dosing when appropriate to reduce radiation dose to as low as reasonably achievable. IV CONTRAST: No IV contrast used,0ml TOTAL DOSE: 15.10 CTDIvol(mGy) FINDINGS: Evaluation of the solid organs and soft tissues is limited in the absence of intravenous contrast. LUNGS: There is linear atelectasis at the lung bases. VASCULATURE: Unremarkable in size CICI: Limited evaluation for adenopathy in the absence of contrast. MEDIASTINUM: Normal. No mass or adenopathy. CARDIAC: Coronary artery calcifications PLEURA: Normal. No mass or effusion. CHEST WALL: Normal. No mass or axillary adenopathy. LIVER: Unremarkable in contour BILIARY: Gallbladder is present and contains numerous small layering stones. A associate sales representative stone measures 0.3 cm. PANCREAS: There is mild pancreatic atrophy SPLEEN: Unremarkable in contour KIDNEYS: Non-obstructing bilateral renal calculi. On the right the calculus measures 0.6 cm. On the left the calculus measures 0.3 cm. There is left renal parenchymal scarring. ADRENALS: Normal. No mass or enlargement. AORTA/VASCULAR: No aortic aneurysm. RETROPERITONEUM: There are periaortic surgical clips Continued Report - Page 2 of 2 Patient: RASHAD BAUTISTA Phone#: : 1970 Age: 53 Gender: M Pt. Type: ER Account: [id number] Location: [facility] Ordering: NICOLE AMAYA Exam Date: 07/10/2023/17:15 Family Phys: CONNOR RC Charge Code: [id number] Physician: Gem Order #: [id number] Dose#: [id number] BOWEL/MESENTERY: No bowel obstruction or dilatation. No significant stool burden. Diverticulosis of the sigmoid colon. Appendix is unremarkable in size and contains air. Surgical clips in the right lower quadrant. ABDOMINAL WALL: Fat containing left inguinal hernia. Surgical tacks from prior hernia repair. URINARY BLADDER: Partially distended PELVIC NODES: Normal. No adenopathy. PELVIC ORGANS: Normal. No visible mass. Pelvic organs appropriate for patient age. BONES: Disc height loss at L1-2 and L5-S1 OTHER: Negative. CONCLUSION: 1. No appreciable acute intrathoracic, abdominal or pelvic abnormality within the limits of a noncontrast exam 2. Cholelithiasis 3. Nephrolithiasis Dictated by: Carla Vickers MD on 07/10/2023 at 17:46 Approved by: Carla Vickers MD on 07/10/2023 at 17:59 Normal [facility] Glucose Glucometer (BldC) [M ass/Vol]Ordered By: Tamir Horowitz on 03-19-2023 Glucose [Mass/Vol] 209 mg/dL 74-106 [facility] Comment on above: MANAGEMENT OF PATIEN T CARE PER NURSING PROTOCOL Absolute lymphocyte countOrd ered By: Beata Saldivar on 03-18-2023 Lymphocytes Auto (Unsp spec) [#/Vol] 2.82 10*3/uL 0.83-4.51 [facility] Basophil percentageOrdered B y: Kendra White on 03-18-2023 Bilirubin [Mass/Vol] 0.80 mg/dL 0.20-1.00 [facility] Comment on above: For patients on eltr ombopag therapy, use of Dimension [place] TBIL is not recommended. Chloride [Moles/Vol] 89 mmol/L 98-107 [facility] Glucose [Mass/Vol] 188 mg/dL 74-106 [facility] Comment on above: Fasting Glucose resu lt greater than or equal to 126 mg/dL suggests DIABETES MELLITUS per A.D.A. criteria. Potassium [Moles/Vol] 3.4 mmol/L 3.5-5.1 [facility] Protein [Mass/Vol] 6.3 g/dL 6.4-8.2 [facility] Sodium [Moles/Vol] 146 mmol/L 136-145 [facility] Basophil percentageOrdered B y: Beata Saldivar on 03-18-2023 Basophil percentage 0 SEEN /hpf 0-5 [facility] Basophils/100 WBC (Bld) 0.8 % 0-1 [facility] Eosinophils/100 WBC (Bld) 1.7 % 0-5 [facility] Neutrophils (Bld) [#/Vol] 5.8 10*3/uL 2.0-7.7 [facility] Neutrophils/100 WBC (Bld) 59.8 % 47-70 [facility] WBC (Bld) [#/Vol] 9.7 10*3/uL 4.4-11.0 [facility] Bilirubin Test strip Ql (U)O rdered By: Beata Saldivar on 03-18-2023 Bilirubin Ql (U) Negative Negative [facility] Blood erythrocytes count (nu mber/volume)Ordered By: Beata Saldivar on 03-18-2023 RBC (Bld) [#/Vol] 5.38 10*6/uL 4.6-6.2 [facility] Blood hemoglobin measurement (mass/volume)Ordered By: Beata Saldivar on 03-18-2023 Hemoglobin (Bld) [Mass/Vol] 16.1 g/dL 13.0-16.5 [facility] Blood lymphocytes/100 leukoc ytesOrdered By: Beata Saldivar on 03-18-2023 Lymphocytes/100 WBC (Bld) 29.0 % 19-41 [facility] Blood monocytes/100 leukocyt esOrdered By: Beata Saldivar on 03-18-2023 Monocytes/100 WBC (Bld) 7.8 % 0-10 [facility] Blood platelet mean volumeOr dered By: Beata Saldivar on 03-18-2023 Platelet mean volume (Bld) [Entitic vol] 9.2 fL 6.2-12.0 [facility] Culture, urineOrdered By: Courtney Horowitz on 03-18-2023 Bacteria identified Cx Nom (U) Presumptive E. coli [facility] Determination of erythrocyte mean corpuscular volume (MCV)Ordered By: Beata Saldivar on 03-18-2023 MCV (RBC) [Entitic vol] 83.6 fL 80-94 [facility] Hematocrit Auto (Bld) [Volum e fraction]Ordered By: Beata Saldivar on 03-18-2023 Hematocrit (Bld) [Volume fraction] 45.0 % 40-54 [facility] Ketones Test strip Ql (U)Ord ered By: Beata Saldivar on 03-18-2023 Ketones Ql (U) 5 mg/dl Negative [facility] Laboratory - Chemistry and C hemistry - challengeOrdered By: Kendra Garcia on 03-18-2023 ALP [Catalytic activity/Vol] 78 U/L 45-117 [facility] ALT [Catalytic activity/Vol] 102 U/L 16-61 [facility] CO2 [Moles/Vol] 23.0 mmol/L 21.0-32.0 [facility] Globulin (S) [Mass/Vol] 3.5 g/dL 2.2-4.2 [facility] Urea nitrogen/Creatinine [Mass ratio] 7.4 mg/mg 10-20 [facility] Magnesium [Mass/Vol] 1.7 mg/dL 1.6-2.6 [facility] Comment on above: Moderate Hemolysis, Result may be falsely increased. Laboratory - Hematology and Cell countsOrdered By: Beata Saldivar on 03-18-2023 Erythrocyte distribution width (RBC) [Entitic vol] 38.2 fL 35.1-43.9 [facility] Erythrocyte distribution width (RBC) [Ratio] 12.6 % 11.6-14.6 [facility] Immature granulocytes/100 WBC (Bld) 0.900 % 0.0-0.9 [facility] Comment on above: IG% - Immature Granu locytes (promyelocytes, myelocytes and metamyelocytes) > 1% indicates that a LEFT SHIFT is Present. MCH (RBC) [Entitic mass] 29.9 pg 27.0-32.0 [facility] Nucleated RBC/100 WBC (Bld) [Ratio] 0 % 0-5 [facility] MCHC Auto (RBC) [Mass/Vol]Or dered By: Beata Saldivar on 03-18-2023 MCHC (RBC) [Mass/Vol] 35.8 g/dL 32-36 [facility] Mucus LM Ql (Urine sed)Order ed By: Beata Saldivar on 03-18-2023 Mucus Ql (Urine sed) 0 SEEN /hpf [facility] Nitrite Test strip Ql (U)Ord ered By: Beata Saldivar on 03-18-2023 Nitrite Ql (U) Negative Negative [facility] No Panel InformationOrdered By: Kendra Garcia on 03-18-2023 Estimated Creatinine Clearance Calc 60.56 ml/min [facility] Estimated GFR (MDRD) Amer 64 mL/min >60 [facility] Comment on above: GFR Calc Estimated GFR (MDRD) Non-Af Amer 53 mL/min >60 [facility] Comment on above: Non- GFR Calc Platelets bldOrdered By: Nicole Saldivar on 03-18-2023 Platelets (Bld) [#/Vol] 243 10*3/uL 150-450 [facility] Protein Test strip Ql (U)Ord ered By: Beata Saldivar on 03-18-2023 Protein Ql (U) 30 mg/dl Negative [facility] Serum or plasma albumin debo urement (mass/volume)Ordered By: Kendra Garcia on 03-18-2023 Albumin [Mass/Vol] 2.8 g/dL 3.2-5.0 [facility] Serum or plasma albumin/glob ulin mass ratioOrdered By: Kendra Garcia on 03-18-2023 Albumin/Globulin [Mass ratio] 0.8 {ratio} 0.9-2.4 [facility] Serum or plasma calcium debo urement (mass/volume)Ordered By: Kendra Garcia on 03-18-2023 Calcium [Mass/Vol] 7.4 mg/dL 8.5-10.1 [facility] Serum or plasma creatinine m easurement (mass/volume)Ordered By: Kendra Garcia on 03-18-2023 Creatinine [Mass/Vol] 1.49 mg/dL 0.70-1.30 [facility] Comment on above: The validity of the calculated GFR & GFRAA in patients over 70 years has not been determined. Clinical correlation is essential. Serum or plasma urea nitroge n measurement (mass/volume)Ordered By: Kendra Garcia on 03-18-2023 Urea nitrogen [Mass/Vol] 11 mg/dL 7-18 [facility] Squamous epithelial cells de tection in urine sediment by light microscopyOrdered By: Beata Saldivar on 03-18-2023 Epithelial cells.squamous LM Ql (Urine sed) 0 SEEN /hpf 0-5 [facility] Thin prep Papanicolaou smear with manual screeningOrdered By: Kendra Garcia on 03-18-2023 Thin prep Papanicolaou smear with manual screening 59 U/L 15-37 [facility] Thin prep Papanicolaou smear with manual screening 34 5-15 [facility] Urine blood detectionOrdered By: Beata Saldivar on 03-18-2023 RBC Ql (U) 250 /ul Negative [facility] RBC Ql (U) 10-25 SEEN /hpf 0-5 [facility] Urine clarityOrdered By: Nicole Saldivar on 03-18-2023 Clarity (U) Clear Clear [facility] Urine color determinationOrd ered By: Beata Saldivar on 03-18-2023 Color (U) Yellow Yellow [facility] Urine glucose detectionOrder ed By: Beata Saldivar on 03-18-2023 Glucose Ql (U) 1000 mg/dl Normal [facility] Urine leukocyte esterase det ection by dipstickOrdered By: Beata Saldivar on 03-18-2023 Leukocyte esterase Test strip Ql (U) Negative Negative [facility] Urine pHOrdered By: Beata Jayjay gur on 03-18-2023 pH (U) 6.0 [pH] 5.0 - 8.0 [facility] Urine sediment bacteria coun t by microscopy (number/high power field)Ordered By: Beata Saldivar on 03-18-2023 Bacteria LM.HPF (Urine sed) [#/Area] 1 /[HPF] None Seen [facility] Urine specific gravity measu rementOrdered By: Beata Saldivar on 03-18-2023 Specific gravity (U) [Rel density] 1.020 1.002-1.030 [facility] Urobilinogen Auto test strip Ql (U)Ordered By: Beata Saldivar on 03-18-2023 Urobilinogen Ql (U) 1 mg/dl Normal [facility] Whole blood hemoglobin A1c/t otal hemoglobin ratio (mass fraction)Ordered By: Tamir Horowitz on 03-18-2023 HbA1c (Bld) [Mass fraction] 7.9 % 3.8-5.6 [facility] Comment on above: Normal < 5.7 % Predi abetic 5.7 - 6.4 % Diabetic >or= 6.5 % Please note range changes. Basophil percentageOrdered B y: Connor Cr on 12-26-2022 Chloride [Moles/Vol] 107 mmol/L 98-107 [facility] Cholesterol [Mass/Vol] 243 mg/dL <200 [facility] Comment on above: <200 mg/dL Desirable 200-240 mg/dL Borderline >240 mg/dL High Risk Glucose [Mass/Vol] 131 mg/dL 74-106 [facility] Comment on above: Fasting Glucose resu lt greater than or equal to 126 mg/dL suggests DIABETES MELLITUS per A.D.A. criteria. Potassium [Moles/Vol] 3.8 mmol/L 3.5-5.1 [facility] Sodium [Moles/Vol] 140 mmol/L 136-145 [facility] Triglyceride [Mass/Vol] 116 mg/dL <199 [facility] Comment on above: The drugs N-Acetylcy steine and Metamizole may falsely depress this assay.Serum Triglycerides Reference Interval Normal <150 mg/dL Borderline high 150 - 199 mg/dL High 200 - 499 mg/dL Very High > or = 500 mg/dL Laboratory - Chemistry and C hemistry - challengeOrdered By: Connor Cr on 12-26-2022 CO2 [Moles/Vol] 26.0 mmol/L 21.0-32.0 [facility] Urea nitrogen/Creatinine [Mass ratio] 12.3 mg/mg 10-20 [facility] No Panel InformationOrdered By: Connor Cr on 12-26-2022 Estimated GFR (MDRD) Amer 81 mL/min >60 [facility] Comment on above: GFR Calc Estimated GFR (MDRD) Non-Af Amer 67 mL/min >60 [facility] Comment on above: Non- GFR Calc Serum or plasma calcium debo urement (mass/volume)Ordered By: Connor Cr on 12-26-2022 Calcium [Mass/Vol] 9.3 mg/dL 8.5-10.1 [facility] Serum or plasma cholesterol in HDL measurement (mass/volume)Ordered By: Connor Cr on 12-26-2022 Cholesterol in HDL [Mass/Vol] 38 mg/dL >40 [facility] Comment on above: The drugs N-Acetylcy steine and Metamizole may falsely depress this assay. Reference Range HDL <40 mg/dL Low HDL Cholesterol HDL >or= 60 mg/dL High HDL Cholesterol Serum or plasma cholesterol in VLDL measurement (mass/volume)Ordered By: Connor Cr on 12-26-2022 Cholesterol in VLDL [Mass/Vol] 23 mg/dL 5-40 [facility] Serum or plasma creatinine m easurement (mass/volume)Ordered By: Connor Cr on 12-26-2022 Creatinine [Mass/Vol] 1.22 mg/dL 0.70-1.30 [facility] Comment on above: The validity of the calculated GFR & GFRAA in patients over 70 years has not been determined. Clinical correlation is essential. Serum or plasma low density lipoprotein (LDL) cholesterol measurement (mass/volume)Ordered By: Connor Cr on 12-26-2022 Cholesterol in LDL [Mass/Vol] 182 mg/dL 0-130 [facility] Serum or plasma urea nitroge n measurement (mass/volume)Ordered By: Connor Cr on 12-26-2022 Urea nitrogen [Mass/Vol] 15 mg/dL 7-18 [facility] Thin prep Papanicolaou smear with manual screeningOrdered By: Connor Cr on 12-26-2022 Thin prep Papanicolaou smear with manual screening 7 5-15 [facility] CNOVon 10-10-2021 CNOV Office Visit (GENSWS ) RASHAD BAUTISTA ([id number]) 1970 M Date Time Provider Department 10/10/21 7:00 AM ARNIE CROWS During your visit today, we recorded the following information about you: Temperature Pulse Blood pressure Weight 96.1 degrees 115/minute 149/96 121.6 kg Height 1.778 m Sharonda Vigil 10/10/2021 7:03 AM Signed REVIEW OF SYSTEMS: General: The patient denies fatigue, denies weight loss, denies weight gain, denies feeling hot, and denies feelings of cold. Eyes: The patient denies glaucoma, denies eye injury/surgery, wears glasses or contacts. Ear/Nose/Throat: The patient denies allergies, denies hayfever, denies ear infections, and denies bloody noses. Cardiovascular: The patient denies chest pain, denies heart disease, NOTES high blood pressure,denies cardiac stent, denies prior heart attack, denies irregular heart beat, NOTES high cholesterol, denies poor circulation, denies heart failure, other cardiac issues, denies claudication, denies cold feet, denies peripheral arterial stent. Respiratory: The patient denies tuberculosis, denies pneumonia, denies frequent cough, denies pulmonary embolism, denies shortness of breath, and denies coughing up blood. Gastrointestinal: The patient denies difficulty swallowing, denies acid reflux, denies ulcers, denies vomiting, denies jaundice/hepatitis, denies gallbladder problems, denies black or tarry stools, denies hemorrhoids, denies bleeding from rectum, denies diverticulitis, denies constipation, denies diarrhea, denies loss of stool control, and denies hernias. Kidney/Bladder: The patient denies kidney stones, denies urine infections, and denies bloody urine. Skin: The patient denies a history of skin cancer, denies bleeding/changing moles, and denies a history of skin rash. Neurologic: The patient denies a history of epilepsy/convulsions, denies headaches, denies head/spinal injuries, and denies stroke/TIA. Psychiatric: The patient denies psychiatric medications, denies depression, and denies voices, denies substance abuse. Endocrine: The patient denies thyroid disorders, denies diabetes, and denies hormonal problems. Hematologic: The patient denies a history of bruising, denies bleeding, and denies anemia, denies blood clots. Infections: The patient denies a history of measles and mumps, denies rheumatic fever, and denies sexually transmitted diseases. Musculoskeletal: The patient denies back pain/injury, denies back problems, denies sciatica, denies knee/foot trouble, denies arthritis, or denies gout. When was patient's last Mammogram screening? N/A Last Colonoscopy: None Sharonda Crow MD 10/10/2021 8:12 AM Signed HISTORY AND PHYSICAL Rashad Luther Michele 1970 REFERRING PHYSICIAN: Self CHIEF COMPLAINT: Consult (Left Groin Pain) HPI: Rashad is a 51 year old male with a complaint of a bulge without discomfort in his left inguinal region. The patient notes discomfort in this area and a bit of a bulge after shoveling snow. He still notes a bulge but denies pain in the area. I had seen the patient a year previously for a complicated abdominal wall incisional hernia with multiple defects and a larger periumbilical defect containing small bowel. The patient underwent a laparoscopic lysis of adhesions along with laparoscopic repair of incisional hernia using a parietene DS 20 x 25 cm mesh. He is doing well from that surgical repair. Patient is currently starting a diet and planning to lose approximately 40 pounds. He would prefer not to have this hernia repaired until later on in the fall. The patient notes no symptoms of bowel obstruction and denies nausea or vomiting. 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 ALLERGIES: Patient has no known allergies. PERSONAL HISTORY: Social History Tobacco Use - Smoking status: Former Smoker Packs/day: 0.25 Years: 0.50 Pack years: 0.12 Types: Cigarettes Quit date: 05/29/1986 Years since quittin.3 - Smokeless tobacco: Never Used - Tobacco comment: Pt smoked 3-4 cigarettes daily x 6 months. Vaping Use - Vaping Use: (more content not included)... [facility]NIDIA) RASHAD BAUTISTA ([id number]) 1970 M Date Time Provider Department 03/20/21 JAMAR LANDEROS During your visit today, we recorded the following information about you: Vijaya Jean Pss 03/20/2021 10:11 AM Signed Patient calling in regards to PCP wants to start him on a testosterone treatment but would like to speak with Dr Landeros prior to this. He states that PCP office has been trying to get in touch with Dr Landeros and has been unable to reach him. Patient would like for our office to reach out to Vianca in PCP office ([phone]) as Dr Cr is out of office today. Any further question please call patient. April Kurtz LPN 03/20/2021 2:27 PM Addendum I spoke with Vianca from Dr. Cr's office. Vianca is aware that Dr. Landeros is out of the office until 03/21/2021. Dr. Cr would like to put patient on testosterone injections d/t being symptomatic from low testosterone. He wanted to make sure this was okay given the patient's history of cancer and tumor type. April Landeros MD 03/21/2021 7:55 AM Signed YES. We will monitor his labs and CBC MD April Huang LPN 03/21/2021 1:58 PM Signed Vianca at Dr. Cr's office is aware. April Kurtz LPN Allergies As of Date: 03/20/2021 (No Known Allergies) Date Reviewed: 08/02/2020 Reviewed by: Arnie Crow - Fully Assessed Reason for Visit: Patient Update [1234] Prescriptions as of 03/21/2021 - apixaban (ELIQUIS) 5 mg tab(s) Problem List As Of Date 03/20/2021 Noted Resolved Malignant neoplasm of descended right testis (H*05/20/2016 Chemotherapy-induced neutropenia (HCC) [D70.1, *06/27/2016 Pulmonary embolism without acute cor pulmonale *07/02/2016 Hypomagnesemia [E83.42] 07/30/2016 01/06/2018 Regional lymph node metastasis present (HCC) [C*08/26/2016 Secondary malignant neoplasm of retroperitoneal*2016 Testicular cancer (HCC) [C62.90] 09/12/2016 07/10/2017 Acute respiratory insufficiency, postoperative *09/15/2016 Hypokalemia [E87.6] 09/20/2016 01/06/2018 History of venous thromboembolism [Z86.718] 09/20/2016 Anticoagulation management encounter [Z51.81, Z*09/20/2016 Elevated BP without diagnosis of hypertension [*06/29/2020 PEDRO LUIS (obstructive sleep apnea) [G47.33] 06/29/2020 Encounter Status:Closed by APRIL KURTZ LPN on 03/21/21 Normal [facility] Testosteroneon 01-31-2021 Testosterone [Mass/Vol] 228 ng/dL Normal 193-824 C [facility] Lab Comment on above: Performed By: #### T ESTO #### [facility] Routine Lab [address] [place], [place] [address] PROGRESSon 07-05-2020 PROGRESS HNO ID: [id number] Author: Arnie Crow Service: General Surgery Author Type: Physician Type: Progress Notes Filed: 07/05/2020 12:19 PM Note Text: INPATIENT PROGRESS NOTE SERVICE DATE: 07/05/2020 SERVICE TIME: 6:40AM PRIMARY SERVICE: Surgery Subjective CHIEF COMPLAINT: Incisional pain INTERVAL HPI: Less incisional pain than last night. Pain medication appropriate Anton covering pain, we will plan for discharge today Current Facility-Administered Medications Medication Dose Route Frequency - lactated ringers infusion 30 mL/hr INTRAVENOUS CONTINUOUS - ibuprofen 600 mg tab(s) (MOTRIN) 600 mg ORAL q 6 H - oxyCODONE-acetaminophe n 5-325 mg 1-2 tablet (PERCOCET) 1-2 tablet ORAL q 4 H PRN - ondansetron (PF) 4 mg injection (ZOFRAN) 4 mg INTRAVENOUS q 6 H PRN Objective PHYSICAL EXAM: BP 120/85 Pulse 76 Temp (Src) 97.7 (Oral) Resp 22 Ht 5' 11 (1.80m) Wt 248 lb 7.3 oz (112.7kg) SpO2 95% BMI 34.67 kg/(m2). O2 Therapy: Room Air, Liters: 0.50 Physical Exam Performed GENERAL: Alert, no distress, cooperative LUNGS: Lungs clear to auscultation, Good diaphragmatic excursion CARDIAC: Normal S1 and S2; no rubs, murmurs, or gallops ABDOMEN: Abdomen soft, non-tender along lateral abdomen, BS normal, No masses or organomegaly and Tender at incisions and along midline DATA: Diagnostic tests reviewed for today's visit: Assessment/Plan Active Problems: Separately #1 status post complex incisional hernia repair and lysis of adhesions with placement of a 25 x 15 cm mesh. Patient's pain under better control we will plan to discharge to home today. Medication and Non-Pharmacologic VTE Prophylaxis/Anticoagul ants 07/04/20 2500 activity - mobilize patient (fl,oh) VTE Prophylaxis: VTE prophylaxis appropriate SIGNATURE: Arnie Crow MD PATIENT NAME: Rashad Bautista DATE: July 05, 2020 TIME: 12:17 PM PAGER: phone - [phone] Pager - [phone] [facility] ANES POSTPROC EVALon 020 ANES POSTPROC EVAL HNO ID: [id number] Author: Jorge Peres Service: ? Author Type: Anesthesiologist Type: Anesthesia Postprocedure Evaluation Filed: 07/04/2020 3:14 PM Note Text: POST ANESTHESIA EVALUATION NOTE : 1970 Procedure Summary Date: 07/04/20 Room / Location: [facility] OR / [facility] OR Anesthesia Start: 905 Anesthesia Stop: 1309 Procedure: LAPAROSCOPIC INCISIONAL RECURRENT HERNIA REPAIR W/ MESH REDUCIBLE ADULT (N/A Abdomen) Diagnosis: Incisional hernia, without obstruction or gangrene Surgeons: Arnie Crow Responsible Provider: Blayne Castaneda Anesthesia Type: general ASA Status: 3 Anesthesia Type: general Last vitals Vitals Value Taken Time BP 107/74 07/04/20 1509 Temp 36.6 ?C (97.9 ?F) 07/04/20 1509 Pulse 80 07/04/20 1509 Resp 22 07/04/20 1509 SpO2 97 % 07/04/20 1509 Post Anesthesia Patient Status Patient Evaluation: PACU. PACU/ICU Patient Condition: stable. Anticipated Disposition: inpatient floor planned admission. Neurological Status: aware and responsive. Pulmonary Status: breathing comfortably on room air Airway Control: returned to baseline unsupported. Cardiovascular Status: stable. Pain Management: clinically adequate - multimodal analgesia pain management approach Postoperative Hydration: acceptable. Intraoperative Events: no significant anesthesia events Post Operative Nausea/Vomiting Status: Anesthetic Observations: no significant anesthetic observations Recommendation: continue current plan of care and further care per PACU/ICU/floor team. SIGNATURE: Jorge Peres MD PATIENT NAME: Rashad Bautista DATE: July 04, 2020 TIME: 3:14 PM CSN: [id number] [facility] ANES PRE-OPon 07-04-2020 ANES PRE-OP HNO ID: [id number] Author: Blayne Castaneda Service: ? Author Type: Anesthesiologist Type: Anesthesia Preprocedure Evaluation Filed: 07/04/2020 8:11 AM Note Text: ANESTHESIOLOGY DAY OF SURGERY NOTE : 1970 Procedure(s) (LRB): LAPAROSCOPIC INCISIONAL RECURRENT HERNIA REPAIR W/ MESH REDUCIBLE ADULT (N/A) Surgeon(s): Arnie Crow Estimated body mass index is 34.87 kg/m? as calculated from the following: Height as of this encounter: 180.3 cm (5' 11). Weight as of this encounter: 113.4 kg (250 lb). 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 Tracheostomy tube not present Mallampati: II. TM distance: >3 FB. Neck ROM: full ROM without neurological symptoms. Mouth opening: adequate. Additional exam findings: no II - ANESTHESIA PLAN ASA Score: 3 Anesthetic Plan: general Airway type: ETT NPO Status: adequate Monitoring plan: standard ASA. Postoperative analgesic plan: parenteral or oral opioids and multimodal analgesia. Anesthetic Risks, Benefits, Alternatives, Personnel Discussed. Consent obtained from: patient. Patient / Surrogate agrees to blood products: blood products not planned Significant changes in the patient condition since the History and Physical, not otherwise documented in primary service progress note: no. Vitals Value Taken Time BP 149/84 07/04/20 0732 Pulse Resp 16 07/04/20 0732 Temp 36.5 ?C (97.7 ?F) 07/04/20 0732 SpO2 99 % 07/04/20 0732 Facility-Administered Medications as of 07/04/2020 Medication Dose Route Frequency - lactated ringers infusion 30 mL/hr INTRAVENOUS CONTINUOUS - ceFAZolin iv piggyback 2 g in D5W (iso-osmotic) 100 mL (ANCEF) 2 g INTRAVENOUS Pre-Op Once No current outpatient medications on file as of 07/04/2020. I have interviewed and examined the patient. I have reviewed the medical record and/or the pre-anesthesia evaluation, pertinent labs, and test results. This contains updated information obtained within 48 hours of Surgery/Procedure. SIGNATURE: Blayne Castaneda MD PATIENT NAME: Rashad Bautista DATE: July 04, 2020 TIME: 8:10 AM CSN: [id number] [facility] BRIEF OP NOTon 07-04-2020 BRIEF OP NOT HNO ID: [id number] Author: Arnie Crow Service: General Surgery Author Type: Physician Type: Brief Op Note Filed: 07/04/2020 12:41 PM Note Text: BRIEF OPERATIVE NOTATION FOR SURGICAL PROCEDURE. Rashad Bautista 1970 [id number] male LOG ID: [id number] Surgery/Procedure Date: 07/04/2020 Incision/Procedure Start Time: 9:31 AM Incision Close/Procedure End Time: 12:30 PM Surgeon(s)/Procedurali st(s) and Chief Operator Reformer(s): Surgeon(s) and Role: * Arnie Crow - Primary Physician Chief Operator Reformer: Priscilla Russell (Pa) Registered Nurse Repulping Supervisor: Eleonora Liu) TAVO Giraldo REFERRING PHYSICIAN: Outpatient DEPT: [facility] PROVIDER: Sharal POS: [id number] ANESTHESIA: General ASA CLASS: 3 - Severe DIAGNOSIS: incarcerated incisional hernia, adhesions PROCEDURE: laparoscopic incisional hernia repair - incarcerated - [id number], Laparoscopic Lysis of Adhesions - 53565 IVF: 1999 EBL: 50 Specimens: hernia sac, infarcted omentum, omentum ADDITIONAL DIAGNOSES: FINDINGS: [id number] mesh placed COMPLICATIONS: None PMHx - PAST MEDICAL HISTORY Diagnosis Date - Elevated BP without diagnosis of hypertension 06/29/2020 - 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 - [id number] Arnie Crow MD [facility] HISTORY PHYSICALon 0 HISTORY PHYSICAL HNO ID: [id number] Author: Arnie Crow Service: General Surgery Author Type: Physician Type: HANDP Filed: 07/04/2020 8:47 AM Note Text: HISTORY AND PHYSICAL Rashad Bautista 1970 ? ? REFERRING PHYSICIAN: Connor Cr MD ? CHIEF COMPLAINT: Consult (Consult Incisional hernia) ? HPI: Rashad is a 49 year old male with a complaint of a bulge and discomfort in his prior supraumbilical portion of his extensive midline incision. The patient notes discomfort in this area with lifting and straining. The symptoms have increased, over the past few months. He notes a bulge which she will reduce at times just above and to the left of the umbilicus. He wears an abdominal binder. ? 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 His follow-up CT scan demonstrate no signs of recurrent disease. His CT scan from May 2017 suggested the origins of an incisional hernia. ? The patient notes no symptoms of bowel obstruction and denies nausea or vomiting. The patient was seen by his primary care physician who felt the patient has a hernia. Rashad was referred for evaluation and treatment. ? The patient is aware of legal advertisements about mesh and is concerned about the potential risks of a mesh hernia repair. He is asking if this can be done without mesh. He also wishes to postpone workup until next year because he had not reached his deductible for this year and would like to have all these procedures and testing done next year. ? The patient is being seen by me today at the request of Dr. Connor Cr MD for my opinion and advice regarding incisional hernia. ? Follow-up CT scan was performed on September 19, 2019. This demonstrated: ? GI tract: No bowel dilatation is seen. ?No evidence of obstruction. ?Mild diverticulosis but no evidence of diverticulitis. * ?There is an anterior abdominal wall hernia ?on the LEFT side of the umbilicus. ?Noted is a loop of nondilated small bowel which protrudes into this hernia. ?Postsurgical sutures noted to the RIGHT of midline in the area this hernia. ?Also appears to be some parenchymal scarring along the anterior abdominal wall at the base of the hernia. * ?Fat-containing midline anterior abdominal wall hernia noted image 76 * ?Fat-containing anterior abdominal wall hernia midline into the RIGHT of midline image 62 also a slightly higher level Lymph nodes: Multiple postsurgical clips are seen throughout the retroperitoneum and splenic hilar regions. ?Although Mesentery/Peritoneum: Indistinctness in the retroperitoneal fat from previous surgery. ? My review the images basically demonstrates multiple hernias from just below the xiphoid to the level the umbilicus with a loop of bowel in the superior umbilical defect. ? I discussed the surgical procedure and had Dr. Agosto review the CT scan. He recommended a mesh repair. Given that, the patient would prefer to have his surgical case performed locally. ? PAST MEDICAL HISTORY PAST MEDICAL HISTORY Diagnosis Date - Malignant neoplasm of right testis (HCC) 04/29/2016 ? CS IIB NSGCT, good-risk - Pulmonary embolus (HCC) ? - Testicular cancer (HCC) ? ? ? PAST SURGICAL HISTORY PAST SURGICAL HISTORY Procedure Laterality Date - PARTIAL ORCHIECTOMY ? 05/09 ? Dr Martinez - REMOVAL OF ACCESS PORT Right 04/2017 - REMOVE ABD LYMPH NODES EXTENSIVE Bilateral 09/12/2016 ? Post-Chemo: Minute focus of YST ? ? ? CURRENT MEDICATIONS No current outpatient medications on file. ? No current facility-administered medications for this visit. ? ? ALLERGIES: Patient has no known allergies. ? PERSONAL HISTORY: SOCIAL HISTORY Social History ? Tobacco Use - Smoking status: Former Smoker ? ? Packs/day: 0.25 ? ? Years: 0.50 ? ? Pack years: 0.12 ? ? Types: Cigarettes ? ? Quit date: 05/29/1986 ? ? Years since quittin.1 - Smokeless tobacco: Never Used - Tobacco comment: Pt smoked 3-4 cigarettes daily x 6 months. Substance Use Topics - Alcohol use: No ? ? Comment: occassionally - Drug use: No ? FAMILY HISTORY: FAMILY HISTORY FAMILY HISTORY Problem Relation Age of Onset - Diabetes Paternal Grandmother ? - Stroke Mother ? - Heart Father ? ? passed 32 ? ? REVIEW OF SYMPTOMS: The review of systems data was entered by the nurse and reviewed by me ? Nursing Notes: Ajay Ramirez 06/26/2020 4:54 PM Signed REVIEW OF SYSTEMS: General: The patient denies fatigue, denies weight loss, denies weight gain, denies feeling hot, and denies feelings of cold. Eyes: The patient denies glaucoma, denies eye injury/surgery, wears glasses or contacts. Ear/Nose/Throat: The patient denies allergies, denies hayfever, denies ear infections, and denies bloody noses. Cardiovascular: The patient denies chest pain, denies heart disease, denies high blood pressure,denies cardiac stent, denies prior heart attack, denies irregular heart beat, denies high cholesterol, denies poor circulation, denies heart failure, other cardiac issues, denies claudication, denies cold feet, denies peripheral arterial stent. Respiratory: The patient denies tuberculosis, denies pneumonia, denies frequent cough, denies pulmonary embolism, denies shortness of breath, and denies coughing up blood. Gastrointestinal: The patient denies difficulty swallowing, NOTES acid reflux, denies ulcers, denies vomiting, denies jaundice/hepatitis, notes gallbladder problems, denies black or tarry stools, denies hemorrhoids, denies bleeding from rectum, denies diverticulitis, denies constipation, denies diarrhea, denies loss of stool control, and NOTES hernias. Kidney/Bladder: The patient denies kidney stones, denies urine infections, and denies bloody urine. Skin: The patient denies a history of skin cancer, denies bleeding/changing moles, and denies a history of skin rash. Neurologic: The patient denies a history of epilepsy/convulsions, denies headaches, denies head/spinal injuries, and denies stroke/TIA. Psychiatric: The patient denies psychiatric medications, denies depression, and denies voices, denies substance abuse. Endocrine: The patient denies thyroid disorders, denies diabetes, and denies hormonal problems. Hematologic: The patient denies a history of bruising, denies bleeding, and denies anemia, denies blood clots. Infections: The patient denies a history of measles and mumps, denies rheumatic fever, and denies sexually transmitted diseases. Musculoskeletal: The patient denies back pain/injury, denies back problems, denies sciatica, denies knee/foot trouble, denies arthritis, or denies gout. ? ? When was patient's last Mammogram screening? N/A ? Last Colonoscopy: unknown ? Ajay Ramirez ? ? PHYSICAL EXAMINATION: ? General: The patient is 49 year old male, well nourished, well hydrated in no acute distress. The patient is oriented to time, place, and person. ? VITALS: Blood pressure 164/92, pulse 77, temperature 36.1 ?C (97 ?F), temperature source Temporal Artery, weight 116.6 kg (257 lb), SpO2 96 %. Body mass index is 36.88 kg/m?. ? ? Abdominal exam: Soft, nontender, with no palpable masses. No hepatosplenomegaly. A midline hernia located just above the level of the umbilicus and suggestive her hernia slightly higher than this in the midline. No obvious additional hernia defects but his incision is from xiphoid to infraumbilical region ? Rectal exam: exam deferred ? Extremities: no clubbing, cyanosis or edema. No adenopathy. ? Other: ? ? LABORATORY VALUES: As Noted ? RADIOLOGIC STUDIES: As Noted ? Assessment IMPRESSION: prior midline incisional hernias - complex ? PLAN: I plan to perform laparoscopic incisional hernia repair with mesh. The planned surgical procedure was discussed extensively with the patient. The risks, benefits and anticipated outcomes of the procedure, the risks and benefits of the alternatives to the procedure, and the roles and tasks of the personnel to be involved, were discussed with the patient. My staff has also explained the procedure in understandable terms and the patient was given the option to take printed material concerning the planned procedure. The patient had the opportunity to ask questions concerning the planned procedure. The patient freely consents to the planned procedure. ? Anticipated Surgical Procedure/ CPT Code: laparoscopic incisional hernia repair - incarcerated - 11752-685 ? Anticipated Anesthetic: General ? Patient weight: Blood pressure 164/92, pulse 77, temperature 36.1 ?C (97 ?F), temperature source Temporal Artery, weight 116.6 kg (257 lb), SpO2 96 %. BMI: Body mass index is 36.88 kg/m?. ? Planned antibiotic: Ancef 2gm IVPB information manager to OR ? SCDs needed - Yes ? Chief Operator Reformer Needed - Yes ? ? Diagnoses: (K43.2) Incisional hernia, without obstruction or gangrene (primary encounter diagnosis) ? ? Return to Clinic: The patient is instructed to follow-up with me as needed. ? ? ? Arnie Crow MD ? ? [facility] NURSING PROGon 07-04-2020 NURSING PROG HNO ID: [id number] Author: Jose Maria KnowlesRn) TAVO Salomon Service: Nursing Author Type: Registered Nurse Type: Nursing Progress Note Filed: 07/04/2020 5:52 PM Note Text: Nursing Progress Note Patient Name: Rashad Bautista Patient Location: [place] [address]/[id number] __ Daily Note: Received patient from PACU-AANDOx3, VSS-rating pain 7/10. O2 maintained @ 2L/NC-97%. Abd distended, no audibile BS- tender with laps x8 with opsite drsgs with a scant amt drainage-urinal @ bedside DTV. IVFs maintained-family @ bedside- 1700-No chg in assessment-call to Dori in PACUx2 looking for patients belongings. Took Full liquid diet well-O2 maintained, no void as of this time-will monitor. 1730-Rating pain 10/10-medicated for pain, will monitor. Diet advanced-mother remains @ bedside-Message left for NOM regarding belongings This note was completed by: Jose Maria Salomon RN [facility] OPERATIVE NOon 07-04-2020 OPERATIVE NO HNO ID: [id number] Author: Arnie Crow Service: General Surgery Author Type: Physician Type: Operative Report Filed: 07/05/2020 6:28 AM Note Text: [facility] - Operative Report RASHAD BAUTISTA : 1970 AGE: 50. SEX: M PATIENT TYPE: A [facility] [place]: [facility] LOCATION: [address] ATTENDING PHYSICIAN: Arnie Crow M.D. CSN NUMBER: [id number] DATE OF SURGERY/PROCEDURE: 07/04/2020 INCISION/PROCEDURE START TIME: 9:31 a.m. INCISION CLOSE/PROCEDURE END TIME: 12:30 p.m. PREOPERATIVE DIAGNOSIS: Incisional hernia with multiple defects on CT scan. POSTOPERATIVE DIAGNOSIS: Incisional hernia with approximately 2 larger defects, 1 containing incarcerated bowel and omentum, the other containing incarcerated omentum, multiple smaller defects with omentum. SURGEON: Arnie Crow M.D. REFERRAL COORDINATOR: 1. MAGALY Gomes. 2. JENNIFER Grimaldo. SURGERY/PROCEDURE: Laparoscopic incarcerated incisional hernia repair using Parietene DS Covidien mesh 20 x 25 cm, reference number [id number], lot number [id number] use by 12/21/2020, and laparoscopic lysis of adhesions. ANESTHESIA: General endotracheal. LOG ID: #[id number]. ANESTHESIOLOGIST: Dr. Blayne Castaneda. ASA: 3. INTRAVENOUS FLUIDS: 2000 mL. ESTIMATED BLOOD LOSS: 50 mL. URINE OUTPUT: No catheter. FINDINGS: As described above. SPECIMENS: Hernia sac, infarcted omentum, and omentum. DRAINS: None. COMPLICATIONS: None. Patient was maintained for planned TAP block and then with plans to extubate and take to recovery room in stable condition. DESCRIPTION OF PROCEDURE: The patient's palpable hernia sites were marked in the holding area prior to surgery. Sign-in was performed verifying the patient, site, procedure, position, critical nursing information, VTE, and antibiotic prophylaxis. Patient received 2 g of Ancef, had sequential compression devices placed. Following induction of general anesthetic, the patient's abdomen was prepped and draped in usual fashion. Time-out confirming patient, site, procedure, position. Incision was made over the largest upper mid abdomen site. Dissection carried down to the fascia and 1 of the hernia sacs was encountered. Two stay sutures placed in the fascia. The hernia sac incised. The finger was used to enter the peritoneum without difficulty and a Gaviota trocar was inserted through the stay suture and pneumoperitoneum to 13 mmHg was insufflated. Three 5 ports were placed in the far left lateral area. It should be noted there were many dense adhesions to the midline into the right and left of midline. Loops of small bowel were noted to be incarcerated within the lowest hernia defect of the umbilicus and the small bowel was noted to be adherent through adhesions to the omentum stuck in the larger defect in the upper mid abdomen. All small bowel was released using laparoscopic Metzenbaum scissors for dissection from their adhesions. At this point, the omentum was sequentially divided and dissected out of the various hernia sac defects between the umbilical and the mid abdomen. Largest hernia sites, there was actually a 4 x 4 cm hard mass, which turned out to be infarcted omentum. This was dissected off the loops of bowel that were adherent to it and additional omentum. Once this was freed up, the omentum above this point was released from its adhesions to the abdominal wall and its attachment points within multiple smaller hernia defects. Total time for freeing up the adhesions and bowel was approximately 1.5 hours. Once this was fully released, the hernia sac from the infraumbilical site and the supraumbilical site were mobilized and dissected off the subcutaneous fat and the fascial margins of both sites were cleaned out. The remaining multiple smaller defects were above the superior site, and there were about 4 or 5 additional ones. It should be noted that for the largest site that the Gaviota trocar was inserted through, there were 3 or 4 defects. The fascial margin was cleaned up and all were connected with the fascial margin cleaned. Once this was completed, 1 Prolene suture using a pepe needle was used to close the lowest defect, which had actually a relatively small neck with 2 [id number] 1 Prolene sutures. The larger supraumbilical defect, the skin incision was slightly stretched. The infarcted omental mass was taken out through that incision and the fascial defect was closed with 1 [id number] Prolene sutures. Total of 6 were used to close the defect. Prior to that, the length of the defect was measured to be approximately 20 cm. At this point, a 25 x 20 mesh was placed intra-abdominally, marking the mesh to assure the abdominal wall side and measuring the top and marking the top bottom on the side. The mesh was slightly cut narrower, so it was approximately 15 to 16 cm width. The mesh was placed in with transfixing sutures at the cranial and caudal in the 2 lateral areas with 1 Prolene suture and an additional 1 Prolene through the center Gaviota initial trocar site. Following that, multiple ProTack tacks were used to tack the mesh circumferentially at the outer margin and then inner margin of the mesh, total of 60 tacks were placed. The omentum was then pulled down over the small bowel as much as possible. The mesh was noted to lay flat. The subcutaneous fat at the midline incision was closed with interrupted 3-0 Vicryl, skin was closed with interrupted 4- 0 Monocryl subcu sutures. Additional local anesthetic 1% lidocaine, 0.5% Marcaine was injected and a postprocedure TAP block was performed by Anesthesia. Priscilla Russell and Eleonora Giraldo were my assistance. They assisted in visualization of structures and helped for subcu closure. There were no surgeons or qualified residents available. Arnie Crow M.D. RG:[id number] /[id number] [facility] SURGICAL PATHOLOGYon 020 SURGICAL PATHOLOGY Specimen originated from [facility] Specimen #: [id number] Submitting Physician: Arnie Crow M.D. FINAL DIAGNOSIS Soft tissue, ventral, herniorrhaphy - Fibroadipose tissue with fat necrosis and focal calcification, consistent with incarcerated omentum and hernia sac. JEREMIAH/ALBERTO/janes 07/05/2020 Gio Best M.D. (Electronic Signature) _ SPECIMEN SUBMITTED A: INCARCERATED OMENTUM; HERNIA SAC CLINICAL DATA RECURRENT VENTRAL HERNIA; LYSIS OF ADHESIONS, LAPAROSCOPIC REPAIR VENTRAL HERNIA WITH MESH GROSS DESCRIPTION A. Received in formalin labeled incarcerated omentum hernia sac are multiple irregular fragments of vaca-purple membranous tissue surrounded by adipose tissue aggregating to 13 x 8 x 3 cm. Sectioning reveals a yellow-vaca fatty cut surface. No nodularity is identified. No areas of hemorrhage or necrosis are identified. Swimming Pool Serviceperson sections are submitted in cassettes A1-A2. OLS/db 07/04/2020 Gross examination performed [place] [address] [place] [id number] Date of Report: 07/06/2020 Date of Procedure: 07/04/2020 Date of Receipt: 07/04/2020 Submitted by: Arnie Crow M.D. Location: 3 S Diagnostic interpretation performed at [place] [id number] [place] [id number]. [place] Number: [id number] [facility] HOSPon 06-26-2020 HOSP Patient:Eleonora Bautista MRN: Height:5' 11[pt rpt[(1.803 m) Weight:250 lb (113.399 kg) Outpatient Medications as of 07/04/20: Patient has no current outpatient medications. 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): Ajay Ramirez 06/26/2020 4:52 PM Signed 07-04-2020 Lap Incisional hernia Progress Notes ([facility]): Ajay Ramirez 06/26/2020 4:54 PM Signed REVIEW OF SYSTEMS: General: The patient denies fatigue, denies weight loss, denies weight gain, denies feeling hot, and denies feelings of cold. Eyes: The patient denies glaucoma, denies eye injury/surgery, wears glasses or contacts. Ear/Nose/Throat: The patient denies allergies, denies hayfever, denies ear infections, and denies bloody noses. Cardiovascular: The patient denies chest pain, denies heart disease, denies high blood pressure,denies cardiac stent, denies prior heart attack, denies irregular heart beat, denies high cholesterol, denies poor circulation, denies heart failure, other cardiac issues, denies claudication, denies cold feet, denies peripheral arterial stent. Respiratory: The patient denies tuberculosis, denies pneumonia, denies frequent cough, denies pulmonary embolism, denies shortness of breath, and denies coughing up blood. Gastrointestinal: The patient denies difficulty swallowing, NOTES acid reflux, denies ulcers, denies vomiting, denies jaundice/hepatitis, notes gallbladder problems, denies black or tarry stools, denies hemorrhoids, denies bleeding from rectum, denies diverticulitis, denies constipation, denies diarrhea, denies loss of stool control, and NOTES hernias. Kidney/Bladder: The patient denies kidney stones, denies urine infections, and denies bloody urine. Skin: The patient denies a history of skin cancer, denies bleeding/changing moles, and denies a history of skin rash. Neurologic: The patient denies a history of epilepsy/convulsions, denies headaches, denies head/spinal injuries, and denies stroke/TIA. Psychiatric: The patient denies psychiatric medications, denies depression, and denies voices, denies substance abuse. Endocrine: The patient denies thyroid disorders, denies diabetes, and denies hormonal problems. Hematologic: The patient denies a history of bruising, denies bleeding, and denies anemia, denies blood clots. Infections: The patient denies a history of measles and mumps, denies rheumatic fever, and denies sexually transmitted diseases. Musculoskeletal: The patient denies back pain/injury, denies back problems, denies sciatica, denies knee/foot trouble, denies arthritis, or denies gout. When was patient's last Mammogram screening? N/A Last Colonoscopy: unknown Ajay Ashley Crow MD 06/26/2020 6:00 PM Signed HISTORY AND PHYSICAL Rashad Bautista 1970 REFERRING PHYSICIAN: Connor Cr MD CHIEF COMPLAINT: Consult (Consult Incisional hernia) HPI: Rashad is a 49 year old male with a complaint of a bulge and discomfort in his prior supraumbilical portion of his extensive midline incision. The patient notes discomfort in this area with lifting and straining. The symptoms have increased, over the past few months. He notes a bulge which she will reduce at times just above and to the left of the umbilicus. He wears an abdominal binder. 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 His follow-up CT scan demonstrate no signs of recurrent disease. His CT scan from May 2017 suggested the origins of an incisional hernia. The patient notes no symptoms of bowel obstruction and denies nausea or vomiting. The patient was seen by his primary care physician who felt the patient has a hernia. Rashad was referred for evaluation and treatment. The patient is aware of legal advertisements about mesh and is concerned about the potential risks of a mesh hernia repair. He is asking if this can be done without mesh. He also wishes to postpone workup until next year because he had not reached his deductible for this year and would like to have all these procedures and testing done next year. The patient is being seen by me today at the request of Dr. Connor Cr MD for my opinion and advice regarding incisional hernia. Follow-up CT scan was performed on September 19, 2019. This demonstrated: GI tract: No bowel dilatation is seen. ?No evidence of obstruction. ?Mild diverticulosis but no evidence of diverticulitis. * ?There is an anterior abdominal wall hernia ?on the LEFT side of the umbilicus. ?Noted is a loop of nondilated small bowel which protrudes into this hernia. ?Postsurgical sutures noted to the RIGHT of midline in the area this hernia. ?Also appears to be some parenchymal scarring along the anterior abdominal wall at the base of the hernia. * ?Fat-containing midline anterior abdominal wall hernia noted image 76 * ?Fat-containing anterior abdominal wall hernia midline into the RIGHT of midline image 62 also a slightly higher level Lymph nodes: Multiple postsurgical clips are seen throughout the retroperitoneum and splenic hilar regions. ?Although Mesentery/Peritoneum: Indistinctness in the retroperitoneal fat from previous surgery. My review the images basically demonstrates multiple hernias from just below the xiphoid to the level the umbilicus with a loop of bowel in the superior umbilical defect. I discussed the surgical procedure and had Dr. Agosto review the CT scan. He recommended a mesh repair. Given that, the patient would prefer to have his surgical case performed locally. PAST MEDICAL HISTORY Diagnosis Date - Malignant neoplasm of right testis (HCC) 04/29/2016 CS IIB NSGCT, good-risk - Pulmonary embolus (HCC) - Testicular cancer (HCC) PAST SURGICAL HISTORY Procedure Laterality Date - PARTIAL ORCHIECTOMY 05/09 Dr Martinez - REMOVAL OF ACCESS PORT Right 04/2017 - REMOVE ABD LYMPH NODES EXTENSIVE Bilateral 09/12/2016 Post-Chemo: Minute focus of YST No current outpatient medications on file. No current facility-administered medications for this visit. ALLERGIES: Patient has no known allergies. PERSONAL HISTORY: Social History Tobacco Use - Smoking status: Former Smoker Packs/day: 0.25 Years: 0.50 Pack years: 0.12 Types: Cigarettes Quit date: 05/29/1986 Years since quittin.1 - Smokeless tobacco: Never Used - Tobacco comment: Pt smoked 3-4 cigarettes daily x 6 months. Substance Use Topics - Alcohol use: No Comment: occassionally - Drug use: No FAMILY HISTORY: FAMILY HISTORY Problem Relation Age of Onset - Diabetes Paternal Grandmother - Stroke Mother - Heart Father passed 32 REVIEW OF SYMPTOMS: The review of systems data was entered by the nurse and reviewed by mo Nursing Notes: Ajay Ramirez 06/26/2020 4:54 PM Signed REVIEW OF SYSTEMS: General: The patient denies fatigue, denies weight loss, denies weight gain, denies feeling hot, and denies feelings of cold. Eyes: The patient denies glaucoma, denies eye injury/surgery, wears glasses or contacts. Ear/Nose/Throat: The patient denies allergies, denies hayfever, denies ear infections, and denies bloody noses. Cardiovascular: The patient denies chest pain, denies heart disease, denies high blood pressure,denies cardiac stent, denies prior heart attack, denies irregular heart beat, denies high cholesterol, denies poor circulation, denies heart failure, other cardiac issues, denies claudication, denies cold feet, denies peripheral arterial stent. Respiratory: The patient denies tuberculosis, denies pneumonia, denies frequent cough, denies pulmonary embolism, denies shortness of breath, and denies coughing up blood. Gastrointestinal: The patient denies difficulty swallowing, NOTES acid reflux, denies ulcers, denies vomiting, denies jaundice/hepatitis, notes gallbladder problems, denies black or tarry stools, denies hemorrhoids, denies bleeding from rectum, denies diverticulitis, denies constipation, denies diarrhea, denies loss of stool control, and NOTES hernias. Kidney/Bladder: The patient denies kidney stones, denies urine infections, and denies bloody urine. Skin: The patient denies a history of skin cancer, denies bleeding/changing moles, and denies a history of skin rash. Neurologic: The patient denies a history of epilepsy/convulsions, denies headaches, denies head/spinal injuries, and denies stroke/TIA. Psychiatric: The patient denies psychiatric medications, denies depression, and denies voices, denies substance abuse. Endocrine: The patient denies thyroid disorders, denies diabetes, and denies hormonal problems. Hematologic: The patient denies a history of bruising, denies bleeding, and denies anemia, denies blood clots. Infections: The patient denies a history of measles and mumps, denies rheumatic fever, and denies sexually transmitted diseases. Musculoskeletal: The patient denies back pain/injury, denies back problems, denies sciatica, denies knee/foot trouble, denies arthritis, or denies gout. When was patient's last Mammogram screening? N/A Last Colonoscopy: unknown Ajay Ramirez PHYSICAL EXAMINATION: General: The patient is 49 year old male, well nourished, well hydrated in no acute distress. The patient is oriented to time, place, and person. VITALS: Blood pressure 164/92, pulse 77, temperature 36.1 ?C (97 ?F), temperature source Temporal Artery, weight 116.6 kg (257 lb), SpO2 96 %. Body mass index is 36.88 kg/m?. Abdominal exam: Soft, nontender, with no palpable masses. No hepatosplenomegaly. A midline hernia located just above the level of the umbilicus and suggestive her hernia slightly higher than this in the midline. No obvious additional hernia defects but his incision is from xiphoid to infraumbilical region Rectal exam: exam deferred Extremities: no clubbing, cyanosis or edema. No adenopathy. Other: LABORATORY VALUES: As Noted RADIOLOGIC STUDIES: As Noted Assessment IMPRESSION: prior midline incisional hernias - complex PLAN: I plan to perform laparoscopic incisional hernia repair with mesh. The planned surgical procedure was discussed extensively with the patient. The risks, benefits and anticipated outcomes of the procedure, the risks and benefits of the alternatives to the procedure, and the roles and tasks of the personnel to be involved, were discussed with the patient. My staff has also explained the procedure in understandable terms and the patient was given the option to take printed material concerning the planned procedure. The patient had the opportunity to ask questions concerning the planned procedure. The patient freely consents to the planned procedure. Anticipated Surgical Procedure/ CPT Code: laparoscopic incisional hernia repair - incarcerated - 44081-515 Anticipated Anesthetic: General Patient weight: Blood pressure 164/92, pulse 77, temperature 36.1 ?C (97 ?F), temperature source Temporal Artery, weight 116.6 kg (257 lb), SpO2 96 %. BMI: Body mass index is 36.88 kg/m?. Planned antibiotic: Ancef 2gm IVPB information manager to OR SCDs needed - Yes Chief Operator Reformer Needed - Yes Diagnoses: (K43.2) Incisional hernia, without obstruction or gangrene (primary encounter diagnosis) Return to Clinic: The patient is instructed to follow-up with me as needed. Arnie Crow MD [facility] Vital Signs Date Time Vital Sign Value Performing Clinician Faci lity 10-26-2024 00:31-0500 Diastolic blood pressure 76 mm[Hg] Dr. Connor Cr MD Work Phone: [facility] 10-26-2024 00:31-0500 Heart rate 66 /min Dr. Connor Cr MD Work Phone: [facility] 10-26-2024 00:31-0500 Respiratory rate 16 /min Dr. Connor Cr MD Work Phone: [facility] 10-26-2024 00:31-0500 SaO2% (BldA) [Mass fraction] 97 % Dr. Connor Cr MD Work Phone: [facility] 10-26-2024 00:31-0500 Systolic blood pressure 142 mm[Hg] Dr. Connor Cr MD Work Phone: [facility] 10-26-2024 00:25-0500 Body height 177.[address] Connor Cr MD Work Phone: [facility] 10-26-2024 00:25-0500 Body mass index (BMI) [Ratio] 32.5 kg/m2 Dr. Connor Cr MD Work Phone: [facility] 10-26-2024 00:25-0500 Body temperature 97.8 [degF] Dr. Connor Cr MD Work Phone: [facility] 10-26-2024 00:25-0500 Body weight 102.[address] Connor Cr MD Work Phone: [facility] 01-25-2024 22:53-0400 Diastolic blood pressure 68 mm[Hg] DR MARY CARMEN CAN MD [facility] 01-25-2024 22:53-0400 Heart rate 78 /min DR MARY CARMEN CAN MD [facility] 01-25-2024 22:53-0400 Respiratory rate 18 /min DR MARY CARMEN CAN MD [facility] 01-25-2024 22:53-0400 Systolic blood pressure 132 mm[Hg] DR MARY CARMEN CAN MD [facility] 01-25-2024 19:54-0400 Body temperature 98.6 [degF] DR MARY CARMEN CAN MD [facility] 01-25-2024 19:54-0400 Body weight 115.[address] MARY CARMEN CAN MD [facility] 01-25-2024 19:54-0400 Diastolic Blood Pressure Non-Invasive 92 mm[Hg] DR MARY CARMEN CAN MD [facility] 01-25-2024 19:54-0400 Heart rate 84 /min DR MARY CARMEN CAN MD [facility] 01-25-2024 19:54-0400 Respiratory rate 16 /min DR MARY CARMEN CAN MD [facility] 01-25-2024 19:54-0400 Systolic Blood Pressure Non-Invasive 132 mm[Hg] DR MARY CARMEN CAN MD [facility] 03-19-2023 07:32-0400 Body temperature 98 [degF] Dr. Connor Cr Work Phone: [facility] 03-19-2023 07:32-0400 Diastolic blood pressure 83 mm[Hg] Dr. Connor Cr Work Phone: [facility] 03-19-2023 07:32-0400 Heart rate 72 /min Dr. Connor Cr Work Phone: [facility] 03-19-2023 07:32-0400 Respiratory rate 16 /min Dr. Connor Cr Work Phone: [facility] 03-19-2023 07:32-0400 SaO2% (BldA) [Mass fraction] 97 % Dr. Connor Cr Work Phone: [facility] 03-19-2023 07:32-0400 Systolic blood pressure 127 mm[Hg] Dr. Connor Cr Work Phone: [facility] 03-19-2023 05:52-0400 Body mass index (BMI) [Ratio] 37.9 kg/m2 Dr. Connor Cr Work Phone: [facility] 03-19-2023 05:52-0400 Body weight 120.[address] Connor Cr Work Phone: [facility] 03-19-2023 04:00-0400 Inhaled oxygen flow rate 2 L/min Dr. Connor Cr Work Phone: [facility] 03-18-2023 04:05-0400 Body height 177.[address] Connor Cr Work Phone: [facility] Encounters Encounter Date Encounter Type Care Provider Facility Start: 10-26-2024 End: 10-26-[address] Connor Cr MD Work Phone: [facility] Work Phone: Start: 10-26-2024 End: 10-26-2024 Patient encounter procedure Filippo Izaguirre [facility] Work Phone: Start: 10-26-2024 End: 10-26-2024 Emergency department patient visit Filippo Andemilia Facility:[facility] Start: 10-26-2024 End: 10-26-2024 ambulatory [facility] Facility:[facility] Start: 01-25-2024 End: 01-25-2024 Emergency department patient visit DR MARY CARMEN CAN MD [facility] Start: 08-25-2023 End: 09-04-2023 ambulatory [facility] Start: 07-28-2023 End: 08-21-2023 ambulatory [facility] Start: 07-10-2023 End: 07-10-2023 Emergency department patient visit CONNOR CR [facility] Start: 03-24-2023 End: 03-24-[address] LUIS QUARLES MD Facility:B Start: 03-24-2023 End: 03-24-[address] LUIS QUARLES MD [facility] Start: 03-24-2023 End: 03-24-[address] LUIS QUARLES MD [facility] Start: 03-24-2023 End: 03-24-[address] Connor Cr Work Phone: [facility] Work Phone: Start: 03-24-2023 End: 03-24-[address] Connor Cr Work Phone: [facility]-Radiology, [facility] Work Phone: Start: 03-19-2023 Non-patient / Non-visit Dr. Jamil Cr Work Phone: [facility] Work Phone: Start: 03-18-2023 End: 03-19-2023 Evaluation and management of inpatient Dr. Connor Cr Work Phone: [facility]-Medical Surgical 3 Work Phone: Start: 03-18-2023 End: 03-19-[address] Connor Cr Work Phone: [facility] Work Phone: Start: 03-18-2023 Non-patient / Non-visit Dr. Jamil Cr Work Phone: [facility] Work Phone: Start: 12-26-2022 End: 12-26-[address] Connor Cr Work Phone: [facility]-Laboratory, [facility] Procedures Date Procedure Procedure Detail Performing Clinician Start: 03-24-2023 Diagnostic radiograp hy of abdomen Dr. Connor Cr Work Phone: Start: 03-18-2023 Cystoscopy and retro grade pyelography Dr. Connor Cr Work Phone: Start: 03-18-[address] Connor Cr Work Phone: Start: 03-18-2023 Fluoroscopic guidance Neel Cr Work Phone: Start: 03-18-2023 CT of abdomen and pe lvis without contrast Dr. Connor Cr Work Phone: Start: 12-26-2022 Plain X-ray of shoulder Dr. Connor Cr Work Phone: Plan of Treatment Date Care Activity Detail Author Start: 10-26-2024 [facility] Start: 03-19-2023 Patient discharge [facility] Start: 03-18-2023 Anes transurethral w/urethrocystoscopy nos ANESTH BLADDER SURGERY [facility] Start: 03-18-2023 Bacteria identified in Urine by Culture Urine Culture [facility] Start: 03-18-2023 Cysto w/insert ureteral stent CYSTOSCOPY AND TREATMENT [facility] Start: 03-18-2023 [facility] Start: 03-18-2023 Consultation [facility] Start: 03-18-2023 Following clinical pathway protocol [facility] Start: 03-18-2023 Assessment of risk of venous thromboembolism [facility] Start: 03-18-2023 Care regimes management [facility] Start: 03-18-2023 Collection of urine and strain for calculus [facility] Start: 03-18-2023 Incentive spirometry [facility] Start: 03-18-2023 Inhalation therapy procedure [facility] Start: 03-18-2023 Insertion of catheter into peripheral vein [facility] Start: 03-18-2023 Introduction of urinary catheter [facility] Start: 03-18-2023 Measuring intake and output [facility] Start: 03-18-2023 Notification of physician [facility] Start: 03-18-2023 Oxygen therapy [facility] Start: 03-18-2023 Providing care according to standard [facility] Start: 03-18-2023 Provision of activity privileges [facility] Start: 03-18-2023 Referral to service [facility] Start: 03-18-2023 [facility] Start: 03-18-2023 Admission procedure [facility] Start: 03-18-2023 [facility] Patient Education [facility] Work Phone: Patient referral [facility] Work Phone: XR Abdomen Single view [facility] Payers Date Payer Category Payer Self-pay [id number] 2023 Unknown [id number] 2015 Unknown [facility] [id number] 2012 Unknown STEPHANIE [id number] 1972 Unknown [id number] 2.16.8 [id number] 1972 Unknown [id number] 2.16.8 [id number] 1972 Unknown [id number] 2.16.8 [id number] 1972 Unknown [id number] 2.16.8 [id number] 1972 Unknown [id number] 2.16.8 [id number] Unknown [id number] 2.16.8 [id number] Unknown [id number] 2.16.8 [id number] Social History Date Type Detail Facility Start: 03-18-2023 Tobacco smoking status [facility] Unknown if ever smoked [facility] Start: 07-09-2020 Occasional [facility] Start: 07-09-2020 None [facility] Start: 07-09-2020 Spouse/ Signif icant Other [facility] Start: 07-09-2020 Non-smoker [facility] Start: 1970 Sex Assigned At Male [facility] Tobacco smoking status No Smoking Status Entered [facility] Start: 10-25-2024 Tobacco smoking status WIIS Ex-smoker (finding) [facility] Start: 11-05-2024 Sex Male (finding) [facility] Medical Equipment Procedure Code Equipment Code Equipment Origin al Text Equipment Identifier Dates Cystoscopy, with retrograde pyelogram, ureteroscopy, laser procedure, and stent inser STENT,URETERAL PIGTAIL [id number] FDA Start: 03-18-2023 Cystoscopy, with retrograde pyelogram, ureteroscopy, laser procedure, and stent inser STENT,URETERAL PIGTAIL [id number] FDA Start: 03-18-2023 Goals Date Patient Goal Desired Activity /State Functional Status Date Assessment Result Facility 01-25-2024 Functional Status Assistive Device None [facility] 01-25-2024 Functional Status Standard Safet y ID band on, Call device within reach, Bed in low position [facility] 03-19-2023 Functional status Ambulates;Bathroom Priv ilege [facility] Work Phone: Mental Status Date Assessment Result Facility 01-25-2024 Mental Status Orientation Oriented x 4 [facility] 01-25-2024 Mental Status [facility] 03-19-2023 Cognitive function Level Of Cons ciousness Awake;Alert;Appropriate;Follow s Commands [facility] Work Phone: 03-18-2023 Cognitive function Voice/Name [facility] Work Phone: Clinical Notes 10-10-2021 to 01-26-2024 Note Date & Type Note Facility 01-26-2024 Hospital Discharge instructions Patient Education 01/25/2024 22:04:42 Diverticulitis Diverticulitis Some people get pouches along the wall of the colon as they get older. The pouches, called diverticuli, usually cause no symptoms. If the pouches become blocked, you can get an infection. This infection is called diverticulitis. It causes pain in your lower abdomen and fever. If not treated, it can become a serious condition, causing an abscess to form inside the pouch. The abscess may block the intestinal tract even or rupture, spreading infection throughout the abdomen. When treatment is started early, oral antibiotics alone may be enough to cure diverticulitis. This method is tried first. But, if you don't improve or if your condition gets worse while using oral antibiotics, you may need to be admitted to the hospital for IV antibiotics. Severe cases may require surgery. Home care The following guidelines will help you care for yourself at home: During the acute illness, rest and follow your healthcare provider's instructions about diet. Sometimes you will need to follow a clear liquid diet to rest your bowel. Once your symptoms are better, you may be told to follow a low-fiber diet for some time. Include foods like: oFlake cereal, mashed potatoes, pancakes, waffles, pasta, white bread, rice, applesauce, bananas, eggs, fish, poultry, tofu, and cooked soft vegetables Take antibiotics exactly as instructed. Don't miss any doses or stop taking the medication, even if you feel better. Monitor your temperature and tell your healthcare provider if you have rising temperatures. Preventing future attacks Once you have an episode of diverticulitis, you are at risk for having it again. After you have recovered from this episode, you may be able to lower your risk by eating a high-fiber diet (20 gm/day to 35 gm/day of fiber). This cleans out the colon pouches that already exist and may prevent new ones from forming. Foods high in fiber include fresh fruits and edible peelings, raw or lightly cooked vegetables, whole grain cereals and breads, dried beans and peas, and bran. Other steps that can help prevent future attacks include: Take your medicines, such as antibiotics, as your healthcare provider says. Drink 6 to 8 glasses of water every day, unless told otherwise. Use a heating pad or hot water bottle to help abdominal cramping or pain. Begin an exercise program. Ask your healthcare provider how to get started. You can benefit from simple activities such as walking or gardening. Treat diarrhea with a bland diet. Start with liquids only; then slowly add fiber over time. Watch for changes in your bowel movements (constipation to diarrhea). Avoid constipation by eating a high fiber diet and taking a stool softener if needed. Get plenty of rest and sleep. Follow-up care Follow up with your healthcare provider as advised or sooner if you are not getting better in the next 2 days. When to seek medical advice Call your healthcare provider right away if any of these occur: Fever of 100.4 F (38 C) or higher, or as directed by your healthcare provider Repeated vomiting or swelling of the abdomen Weakness, dizziness, light-headedness Pain in your abdomen that gets worse, severe, or spreads to your back Pain that moves to the right lower abdomen Rectal bleeding (stools that are red, black or maroon color) Unexpected vaginal bleeding [phone] [employer]. [address] [place] [address], [place] [address]. All rights reserved. This information is not intended as a substitute for professional medical care. Always follow your healthcare professional's instructions. Follow Up Care 01/25/2024 19:51:50 With:CONNOR CR Address: [facility] [address] [place] [phone] [facility] (1) When:2-4 days Comments:As discussed, take antibiotics as prescribed, eat a liquid, easy to digest diet over the next couple days and slowly advance your diet. Return for any worsening severe pain vomiting fever or other concerning symptoms. Follow-up with your doctor regarding CAT scan results. [facility] 01-25-2024 Note Discharge Instructions Thank you for allowing [facility] to assist you with your healthcare needs. The following is important discharge information regarding your hospital visit. Diagnosis from Today's Visit Diverticulitis What to Do Next Instructions from Your Care Team No qualifying data available. Post Acute Orders No qualifying data available. You Need to Schedule the Following Appointments Follow Up with CONNOR CR When:Within 2-4 days Where:[facility] [address] [place] [phone] [facility] (1) Additional Information: As discussed, take antibiotics as prescribed, eat a liquid, easy to digest diet over the next couple days and slowly advance your diet. Return for any worsening severe pain vomiting fever or other concerning symptoms. Follow-up with your doctor regarding CAT scan results. Allergies NKA Medications Please ask your primary doctor or pharmacist before taking any other medication not listed, including over the counter drugs, herbal medications, vitamins and or supplements as they may interact with your home medications. What How Much When Why Instructions Last Dose New acetaminophen-hydrocodone (Mountain 325- 5 mg oral tablet) 1 tab(s) by mouth Every 6 hours as needed for as needed for pain Diverticulitis Duration: 1 Days Printed Prescription New acetaminophen-hydrocodone (Mountain 325- 5 mg oral tablet) 1 tab(s) by mouth Every 6 hours as needed for as needed for pain Diverticulitis Duration: 2 Days Printed Prescription New amoxicillin-clavulanate (amoxicillin-clavulanate 875 mg-125 mg oral tablet) 1 tab(s) by mouth Every 12 hours Duration: 7 Days Printed Prescription Please take this list to your next doctor s visit. Bring all medications you take, including over the counter medications, herbals and other supplements with you to your doctor s visit. Patients and families are reminded to discard old lists and to update any records with all medication providers or retail pharmacies. Education Materials Diverticulitis Some people get pouches along the wall of the colon as they get older. The pouches, called diverticuli, usually cause no symptoms. If the pouches become blocked, you can get an infection. This infection is called diverticulitis. It causes pain in your lower abdomen and fever. If not treated, it can become a serious condition, causing an abscess to form inside the pouch. The abscess may block the intestinal tract even or rupture, spreading infection throughout the abdomen. When treatment is started early, oral antibiotics alone may be enough to cure diverticulitis. This method is tried first. But, if you don't improve or if your condition gets worse while using oral antibiotics, you may need to be admitted to the hospital for IV antibiotics. Severe cases may require surgery. Home care The following guidelines will help you care for yourself at home: During the acute illness, rest and follow your healthcare provider's instructions about diet. Sometimes you will need to follow a clear liquid diet to rest your bowel. Once your symptoms are better, you may be told to follow a low-fiber diet for some time. Include foods like: oFlake cereal, mashed potatoes, pancakes, waffles, pasta, white bread, rice, applesauce, bananas, eggs, fish, poultry, tofu, and cooked soft vegetables Take antibiotics exactly as instructed. Don't miss any doses or stop taking the medication, even if you feel better. Monitor your temperature and tell your healthcare provider if you have rising temperatures. Preventing future attacks Once you have an episode of diverticulitis, you are at risk for having it again. After you have recovered from this episode, you may be able to lower your risk by eating a high-fiber diet (20 gm/day to 35 gm/day of fiber). This cleans out the colon pouches that already exist and may prevent new ones from forming. Foods high in fiber include fresh fruits and edible peelings, raw or lightly cooked vegetables, whole grain cereals and breads, dried beans and peas, and bran. Other steps that can help prevent future attacks include: Take your medicines, such as antibiotics, as your healthcare provider says. Drink 6 to 8 glasses of water every day, unless told otherwise. Use a heating pad or hot water bottle to help abdominal cramping or pain. Begin an exercise program. Ask your healthcare provider how to get started. You can benefit from simple activities such as walking or gardening. Treat diarrhea with a bland diet. Start with liquids only; then slowly add fiber over time. Watch for changes in your bowel movements (constipation to diarrhea). Avoid constipation by eating a high fiber diet and taking a stool softener if needed. Get plenty of rest and sleep. Follow-up care Follow up with your healthcare provider as advised or sooner if you are not getting better in the next 2 days. When to seek medical advice Call your healthcare provider right away if any of these occur: Fever of 100.4 F (38 C) or higher, or as directed by your healthcare provider Repeated vomiting or swelling of the abdomen Weakness, dizziness, light-headedness Pain in your abdomen that gets worse, severe, or spreads to your back Pain that moves to the right lower abdomen Rectal bleeding (stools that are red, black or maroon color) Unexpected vaginal bleeding [phone] [employer]. [address] [place] [address]. All rights reserved. This information is not intended as a substitute for professional medical care. Always follow your healthcare professional's instructions. Additional Information VACCINATE! IT SAVES LIVES! Members of the community who have not yet received the COVID-19 vaccine and would like to receive it can visit one of [facility] vaccine clinics. There are many vaccine clinic locations within the [facility]. For locations and available times, please visit [email or web address] It is important to note that some COVID mobile vaccine clinics are held outdoors and may be canceled in rainy or stormy conditions. To learn more about pediatric vaccinations (ages 5-11), we invite you to visit the [facility] webpage. [email or web address] To learn more about the COVID-19 vaccine, we invite you to visit the CDC website for a list of frequently asked questions. https://www.cdc.gov/coronavirus/-ncov/vaccines/faq.html [facility] Patient Portal Access Instructions: Stay connected with your healthcare team and access your personal medical information anytime with the [facility] Patient Portal. If you would like a full copy of your medical records please contact the [facility] Medical Records Department Thursday through Thursday between 8a.m. and 4:30p.m. Please follow the directions below to access the portal: 1.Access the email account you provided upon registration to the [facility].2.Look for an invitation email from [facility].3.Open the email and access the invitation link: Accept Invitation to [facility]4.Fill in the required carrizales to create your account. Sign into [email or web address] with your username and password that you created in the above steps to stay up to date. You can then view a summary of results, a summary of your visits, and the ability to download your summaries to your computer or send the information securely to a physician. Remember that your healthcare information is confidential, so carefully consider who you will allow to register on the [facility] Patient Portal for access to your information. You can also access the [facility] Patient Portal on the [facility] claudia. Simply click on Health Records under Health Data and then click on the [facility] logo. HOW TO SAFELY DISPOSE OF PRESCRIPTION MEDICATIONS Please use one of the following methods to safely dispose of your unused medications. 1.Use a drug disposal kit: the drug disposal pouch allows you to safely discard your old and unused drugs. Ask your nurse to give you one when you are discharged.2.Visit a local take-back location: Many local pharmacies and police departments have programs that collect old and unwanted prescription drugs. Call your local pharmacy or go to http://bit.PPI/7M8Ip7d to find one close to you.3.Make use of household items: Use cat litter or old coffee grounds to dispose medications if other options are not available. Mix your drugs with these household products, seal them in an airtight container and throw it into the garbage. Call [facility]: [phone] to be sure your drugs can be disposed of in this way. Some medicines may require a different approach.4.Never flush your medications down the toilet. IF YOU HAVE BEEN PRESCRIBED AN OPIOIDS FOR PAIN If you have been prescribed an opioid (such as hydrocodone, oxycodone or morphine), it is critical to understand the possible side effects and risks of opioid pain medications. Even when taken as directed, opioids can have several side effects including: Tolerance, meaning you might need to take more of a medication for the same pain relief. Nausea, vomiting and/or constipation. Sleepiness, dizziness, dry mouth, confusion, depression or itching. Physical dependence, meaning you have withdrawal symptoms when a medication is stopped ? this can develop within a few days. KNOW YOUR RESPONSIBILITIES It is important to know exactly how much and how often to take the opioid pain medications you are prescribed. Never take opioids in higher amounts or more often than prescribed. Do not combine opioids with alcohol or other drugs that cause drowsiness, such as benzodiazepines, also known as benzos, including diazepam and alprazolam, muscle relaxants or sleep aids. Never sell or share prescription opioids. This is illegal. Store opioids in a secure place and out of reach of others (including children, family, friends and visitors). The last page(s) of this document has been signed and retained as a CHART COPY Signatures Patient Education Materials Diverticulitis Medication Leaflets My discharge plan and instructions have been reviewed and explained to me and I,RASHAD BAUTISTA understand my current condition and have read and understand these discharge instructions. I have received a written copy of the plan/instructions. If I have questions, I am aware that I should contact my doctor. 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 Multiplanar reformatted images are provided for review. Automated exposure control, iterative reconstruction, and/or weight based adjustment of the mA/kV was utilized to reduce the radiation dose to as low as reasonably achievable. COMPARISON: None HISTORY: ORDERING SYSTEM PROVIDED HISTORY: Reason for Exam: Left flank pain, history of kidney stones FINDINGS: No acute osseous abnormalities. Degenerative changes of the spine. Bibasilar atelectasis/scarring, right greater than left. Pleural thickening along the posterior lower lobes bilaterally. No pericardial or pleural effusion. Diffusely hypodense liver, which may indicate hepatic steatosis. Cholelithiasis. The spleen, pancreas, and adrenal glands are unremarkable. Bilateral nonobstructive nephrolithiasis measuring up to 0.5 cm on the right. 1.9 cm hypodense lesion in the right mid polar region appears mildly hyperdense measuring up to 34 HU. Additional subcentimeter hypodense lesions bilaterally are too small to characterize, however likely represent small renal cysts. No evidence of hydronephrosis. Small areas of cortical scarring bilaterally, left greater than right. Under distended bladder limits evaluation. Mildly enlarged prostate. Pelvic phleboliths. Small hiatal hernia. The small bowel is unremarkable. Scattered colonic diverticulosis. There is haziness and fat stranding surrounding a diverticulum in the distal descending colon with adjacent wall thickening. No visualized pneumoperitoneum, pneumatosis, or abscess. The appendix is unremarkable. Atherosclerotic nonaneurysmal aorta. Surgical clips are visualized in the retroperitoneum. Haziness in the mesenteric root with multiple nonenlarged lymph nodes. No pathologically enlarged lymph nodes are identified. No free intraperitoneal air or fluid. Small fat containing left inguinal hernia. Postsurgical changes of the anterior abdominal wall. IMPRESSION: Diverticulosis with uncomplicated diverticulitis of the distal descending colon. No pneumatosis, intraperitoneal free air, or abscess is identified. Cholelithiasis. Nonobstructive bilateral nephrolithiasis. Haziness in the mesenteric root with multiple nonenlarged lymph nodes, which can be seen with mesenteric panniculitis. Follow-up imaging in 6 months to 1 year may be considered to rule out lymphoproliferative disorder. Mildly hyperdense right renal lesion may represent a proteinaceous or hemorrhagic cyst. If clinically indicated, nonemergent renal phase CT or MR may be used for further characterization. I have personally reviewed the images of this examination and agree with the resident's findings and interpretation. Interpreted by: Colin Dominguez Preliminary Report By: Marilu Dempsey Electronically signed By Colin Dominguez Dictated Date: 01/25/2024 9:45:15 PM Prelim Date: 01/25/2024 9:55:47 PM Sign Date: 01/25/2024 10:06:35 PM Ordering Provider: MARY CARMEN [facility] 03-19-2023 Consult note Note Date/Time March 19, 2023 7:12 am [facility] Medical Records Department [address] [place] [address] Consultation 03/19/23711 MR#: [id number] Acct: [id number] Name: RASHAD BAUTISTA Rep #:[id number] : 1970 53 From: Luis Quarles MD PCP: Dr. Connor Cr MD Status:ADM I NO Location: [place] [id number] Consult Date of Consult: 03/19/23 Reason for Consult Status post cystoscopy and right stent placement and ureteroscopy but could not reach the stone in the ureter was too narrow to just place a stent. Pain is much better now he is comfortable he can go home and follow-up my office next week with an x-ray to see if the stone is passed or if still needs treatment with shockwave lithotripsy or ureteroscopy. So he can go home and make an appointment to see me next week with a KUB 03/19/23711 <Electronically signed by Luis Quarles MD> Cosigner Signature (if applicable): CC: Dr. Kendra Garcia MD; Dr. Luis Quarles MD; Dr. Connor Cr MD~ Signed [facility] Work Phone: 1(911) 833-606707-26-2023 Progress note Author Tamir Horowitz [facility] March 18, 2023 6:17pm Note Date/Time March 18, 2023 7:27 am [facility] Medical Records Department [address] [place] [address] Progress Note - Hospitalist 03/18/23721 MR#: [id number] Acct: [id number] Name: RASHAD BAUTISTA Rep #:[id number] : 1970 53 From: Tamir Shaikh PCP: Dr. Connor Cr MD Status:ADM I NO [place] [facility] [place] [facility] Reason for Visit Reason for Visit: Diagnoses Urinary calculus, unspecified (03/18/23) Subjective Subjective Follow-up for left-sided ureteric calculus and mild left hydronephrosis. Objective Data Objective Data Vital Signs: Vital Signs Temp Pulse Resp BP Pulse Ox O2 Del Method O2 Flow Rate 97.5 F L 114 H 18 131/83 H 99 Nasal Cannula 2 03/18/23 04:07 03/18/23 04:07 03/18/23 04:07 03/18/23 04:07 03/18/23 04:34 03/18/23 04:34 03/18/23 04:34 Oxygen Flow Rate (L/min) 2 Oxygen Delivery Method Nasal Cannula Weight: 266 lb 1.567 oz Body Mass Index (BMI) 38.0 Intake & Output: Intake and Output for Last 24 Hours 03/16/23 03/17/23 03/18/23 23:59 23:59 23:59 Intake Total 1740 / 1740 Balance 1740 / 1740 Lab / Micro Data 03/18/23 00:20 03/18/23 06:40 Labs: Laboratory Results - last 24 hr 03/18/23 00:20: WBC 9.7, RBC 5.38, Hgb 16.1, Hct 45.0, MCV 83.6, MCH 29.9, MCHC 35.8, RDW Std Deviation 38.2, RDW Coeff of Uriel 12.6, Plt Count 243, MPV 9.2, Immature Gran % (Auto) 0.900, Neut % (Auto) 59.8, Lymph % (Auto) 29.0, [place] % (Auto) 7.8, Eos % (Auto) 1.7, Baso % (Auto) 0.8, Absolute Neuts (auto) 5.8, Absolute Lymphs (auto) 2.82, Nucleated RBC % 0, Sodium 139, Potassium 3.4 L, Chloride 105, Carbon Dioxide 24.0, Anion Gap 10, BUN 11, Creatinine 1.74 H, Estim Creat Clear Calc 51.86, Est GFR (MDRD) Af Amer 53 L, Est GFR (MDRD) Non-Af44 L, BUN/Creatinine Ratio 6.3 L, Glucose 235 H, Calcium 9.2, Magnesium 1.7 03/18/23 01:39: Urine Color Yellow, Urine Clarity Clear, Urine pH 6.0, Ur Specific Lester 1.020, Urine Protein 30 H, Urine Glucose (UA) 1000 H, Urine Ketones 5 H, Urine Occult Blood 250 H, Urine Nitrite Negative, Urine Bilirubin Negative, Urine Urobilinogen 1 H, Ur Leukocyte Esterase Negative, Urine RBC 10-25 SEEN, Urine WBC 0 SEEN, Ur Squamous Epith Cells 0 SEEN, Urine Bacteria 1+, Urine Mucus 0 SEEN 03/18/23 06:42: POC Glucose 195 H Radiography Diagnostic Testing: Radiology Impression Abdomen/Pelvis CT 03/18/23 00:17 IMPRESSION: 1. 5 mm mid left ureteral calculus resulting in mild left-sided hydronephrosis. 2. Nonobstructing by mm right renal calculus. 3. Distal descending and proximal sigmoid colonic diverticulosis without evidence of acute diverticulitis. 4. 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 5. Cholelithiasis without evidence of acute cholecystitis. 6. Small fat-containing umbilical hernia without bowel involvement. 7. Fat-containing left inguinal hernia without bowel involvement. Electronically Signed: Parveen Avery MD at 1:47 EDT , Physical Exam Narrative Seen and examined. Patient does not have fever. Complain of left flank abdominal pain with radiation to left anterior abdomen. No prior history of kidney stone. No history of urologic procedure in the past. Denies burning micturition, increased frequency or urgency or hematuria. No dribbling of urine/incontinence. Physical exam General: Alert, Oriented x3, Cooperative HEENT: Atraumatic, PERRLA, EOMI, Normocephalic Oral: No Gingival or Mucosal Lesions/ Ulcerations Neck: Supple, No JVD, Negative Carotid Bruits Lungs: Air entry diminished in bilateral lung bases. No crepitation/rhonchi Cardiovascular: Regular rate, Regular Rhythm, Normal S1, Normal S2, No murmurs Abdomen: Bowel Sounds Present, Soft, Non-Distended : Mild tenderness on the left flank and anterior abdomen. No suprapubic tenderness. Extremities: No edema, Capillary Refill Less than 3 Seconds Skin: No rashes, No breakdown Musculoskeletal: No Tenderness to Palpation of Joints or Extremities Neurological: Cranial nerves II-XII grossly intact, DTR 2+/4 and Symmetrical, Neuro grossly intact Psych/Mental Status: Normal Affect, Appropriate. Assessment & Plan Assessment/Plan (1) Urolithiasis: PLAN: Plan The patient is a 53 y/o M who was admitted on 03/18/23 with history of persistentongoing left flank pain x 3 days with nausea and emesis associated with no fevers or chills with no history of previous kidney stones #1. Acute Flank Pain secondary to Acute Nephrolithiasis, Acute UTI: Patient admitted to [facility] floor. On Flomax. Urologist consulted. CT abdomen individually reviewed and shows 5 mm calculus in the left mid ureter causing left hydronephrosis. Pain did not relieve in 3 days but worsening therefore probably might not pass spontaneously. Patient has nonobstructive 5 mm calcified stone in the mid right renal pelvis. No right-sided hydronephrosis. Patient had cystoscopy with left retrograde pyelogram ureteroscopy and left stent placement. It was found to have left obstructing ureteric calculi. Continue IV antibiotics ceftriaxone. Urine culture ordered. #2. Elevated BP without HTN diagnosis: Admission ED BP elevated, potentially pain related given acute presentation, continue to monitor and add oral regimen if appropriate, as needed IV hydralazine in the interim. #3. Acute Renal Insufficiency on Chronic Kidney Disease Stage III, unclear subtype: Admission BUN/Cr 1.74, baseline renal function 1.2-1.5, repeat BMP in AM. #4. Hyperglycemia: Admission glucose 235, urinalysis with thousand glucose, will obtain hemoglobin A1c, in the interim will place on ADA diet with Accu-Cheks with insulin sliding scale. If notable HgBA1c would add nutrition consultation for education and teaching for new onset diabetes. #5. Hypokalemia: Admission K+ 3.4, magnesium level requested, supplementation given, repeat level in AM. #6. 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 #7. Obesity: Weight loss and lifestyle changes encouraged. #8. Former tobacco use: Encourage continued tobacco cessation. #9. History of VTE: Patient with history of DVT, PE, continue home apixaban regimen. #10. DVT prophylaxis: We will continue patient home apixaban regimen. Clinical Impression(s) from Imaging Studies Abdomen/Pelvis CT 03/18/23 00:17 IMPRESSION: 1. 5 mm mid left ureteral calculus resulting in mild left-sided hydronephrosis. 2. Nonobstructing by mm right renal calculus. 3. Distal descending and proximal sigmoid colonic diverticulosis without evidence of acute diverticulitis. 4. 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 5. Cholelithiasis without evidence of acute cholecystitis. 6. Small fat-containing umbilical hernia without bowel involvement. 7. Fat-containing left inguinal hernia without bowel involvement. Electronically Signed: Parveen Avery MD at 1:47 EDT , Charges/Coding Visit Charges Inpatient E&M: 12674 Subs Hosp L2 03/18/23 1817 <Electronically signed by Tamir Horoiwtz MD> Cosigner Signature (if applicable): CC: ~ Signed [facility] Work Phone: 1(623) 337-911207-26-2023 Discharge summary Author Luis Quarles [facility] March 18, 2023 1:50pm Note Date/Time March 18, 2023 1:50 pm [facility] Medical Records Department [address] [place] [address] Instructions for Home/Discharge Instructions 03/18/23 1350 MR#: [id number] Acct: [id number] Name: RASHAD BAUTISTA Rep #:[id number] : 1970 53 From: Luis Quarles MD PCP: Dr. Connor Cr MD Status:ADM I NO Discharge Instructions Diet Discharge Diet: No restrictions Activity Discharge Activity: Return to Normal Activity and May Not Drive (while taking narcotic pain medications.) Dressing / Incision Call your doctor if you observe: Fever of 101 or Higher Follow Up Care Please Follow Up With: Luis Quarles MD When: Call [phone] for an appointment after stent placement, get xray day of appt to check location of stone or see if stone passed. Test Results: Test results from this visit will be discussed in further detail at your follow- up appointment, if applicable. Discharge Plan Admission Admit Date/Time: 03/18/23 02:38 Primary Reason for Your Visit: kidney stone Attending Provider: Tamir Horowitz Primary Care Provider: Connor Cr Consulting Providers: Kendra Garcia; Luis Quarles Instructions Patient Instructions: ED Kidney Stone w/ Colic, ED Hyperglycemia New Susp Diabetes Discharge Orders/Prescriptions Prescriptions: New hydrocodone-acetaminophen [hydrocodone-acetaminophen] 5-325 mg tablet 1 tab PO Q4H PRN PRN (Reason: Pain) 2 Days Qty: 15 0RF tamsulosin [Flomax] 0.4 mg capsule 0.4 mg PO DAILY Qty: 7 0RF No Action apixaban 5 MG tablet 5 mg PO BID furosemide 20 mg tablet 20 mg PO DAILY rosuvastatin 5 mg tablet 5 mg PO DAILY Referrals / Follow Up: Luis Quarles MD [Med Staff - Active Staff] - 3-5 Days Connor Cr MD [Primary Care Provider] - 3-5 Days 03/18/23 1350<Electronically signed by Luis Quarles MD>Luis Quarles MD CC: Dr. Kendra Garcia MD; Dr. Luis Quarles MD; Dr. Connor Cr MD ~ Signed [facility] Work Phone: [phone]) 710-564707-26-2023 Procedure [facility] [place] 03-18-2023 Consult note Author Luis Quarles [facility] March 18, 2023 7:35am Note Date/Time March 18, 2023 7:35 am [facility] Medical Records Department [address] [place] [address] Consultation - Urology 03/18/23 0733 MR#: [id number] Acct: [id number] Name: RASHAD BAUTISTA Rep #:[id number] : 1970 53 From: Luis Quarles MD PCP: Dr. Connor Cr MD Status:ADM I NO Location: [facility] [id number] Assessment & Plan Assessment/Plan (1) Urolithiasis: QUALIFIERS: Urinary calculus location: ureter Qualified Code(s): N20.1 - Calculus of ureter PLAN: Plan for left extracorporeal shockwave lithotripsy for stone in the proximal left ureter possible stent HPI Consult Data Date of Consult: 03/18/23 HPI Narrative Reason for Consultation: Obstructing left renal calculus HPI Narrative: RASAHD BAUTISTA, is a 53 M who presents with severe pain from an obstructing stonein the proximal left ureter he was admitted to the hospital for pain control. We will make the patient n.p.o. for surgery plan to take him to surgery today for lithotripsy. [facility] Medical History Bilateral pulmonary embolism Former tobacco use History of testicular cancer Restrictive lung disease Home Medications apixaban 5 mg tablet 5 mg PO BID blood thinner, hx DVT 06/25/21 [History Last Taken 06/25/21] furosemide 20 mg tablet 20 mg PO DAILY water pill 03/18/23 [History Last Taken Unknown] hydrocodone-acetaminophen 5-325mg 5mg-325mg 1 tab PO Q4H PRN PRN Pain 2 days #15TABLETS 03/18/23 [Rx Last Taken Unknown] rosuvastatin 5 mg tablet 5 mg PO DAILY cholesterol 03/18/23 [History Last Taken Unknown] tamsulosin 0.4 mg capsule (Flomax) 0.4 mg PO DAILY #7 caps 03/18/23 [Rx Last Taken Unknown] Allergy/AdvReac Type Severity Reaction Status Date / Time No Known Allergies Allergy Verified 07/30/20 14:24 Family History Mother Cancer Father VTE (venous thromboembolism) Surgical History H/O abdominal surgery H/O unilateral orchiectomy S/P herniorrhaphy Social History household members: spouse Smoking Status: Former smoker alcohol intake: current details: Occasionally substance use type: does not use ROS Constitutional Constitutional: Denies chills, fever(s) or malaise Eyes Eyes: Denies blurry vision or change in vision ENT HEENT: Reports none Cardiovascular Cardiovascular: Denies chest pain or palpitations Respiratory/Chest Respiratory/Chest: Denies cough or shortness of breath with exertion Gastrointestinal Gastrointestinal: Denies abdominal pain, constipation or diarrhea Musculoskeletal Musculoskeletal: Denies back pain, joint stiffness or joint swelling Integumentary Integumentary: Denies dry skin, jaundice, lesions or rash Neurologic Neurologic: Denies confusion, syncope or weakness Psychiatric Psychiatric: Reports none; Denies anxiety or depression Endocrine Endocrinology: Denies excessive sweating, fatigue or flushing Hematologic/Lymphatic Hematologic/Lymphatic: Denies anemia, easy bleeding or easy bruising Physical Exam Const alert and oriented x3 General Appearance: cooperative HEENT normocephalic, head/scalp atraumatic, EAC's normal and TM's normal bilaterally Eyes PERRL and EOMs intact bilaterally Pupil: sluggish Neck no lymphadenopathy, supple and no JVD General: trachea midline Lymph Lymphatic: no lymphadenopathy noted, lymphedema and lymphadenopathy Resp normal respiratory effort, normal air movement and clear to auscultation bilaterally Cardio regular rate, regular rhythm and peripheral pulses 2+ throughout GI soft to palpation, non-tender and non-distended Extremity normal capillary refill and no clubbing, cyanosis or edema General Extremity: no tenderness to palpation of joints or extremities Skin no rashes or lesions noted General Skin Exam: turgor normal Lesions: no lesions Rashes: no rashes Neuro CN's II-XII intact bilaterally Speech: speech normal Motor Exam: strength 5/5 throughout; Negative for general weakness Psych thought process normal, cooperative and affect normal Appearance: appropriate Medical Records Data Attestation: I reviewed the patient's medical records Lab / Micro Data 03/18/23 00:20 03/18/23 00:20 Labs: Laboratory Results - last 24 hr 03/18/23 00:20: WBC 9.7, RBC 5.38, Hgb 16.1, Hct 45.0, MCV 83.6, MCH 29.9, MCHC 35.8, RDW Std Deviation 38.2, RDW Coeff of Uriel 12.6, Plt Count 243, MPV 9.2, Immature Gran % (Auto) 0.900, Neut % (Auto) 59.8, Lymph % (Auto) 29.0, [place] % (Auto) 7.8, Eos % (Auto) 1.7, Baso % (Auto) 0.8, Absolute Neuts (auto) 5.8, Absolute Lymphs (auto) 2.82, Nucleated RBC % 0, Sodium 139, Potassium 3.4 L, Chloride 105, Carbon Dioxide 24.0, Anion Gap 10, BUN 11, Creatinine 1.74 H, Estim Creat Clear Calc 51.86, Est GFR (MDRD) Af Amer 53 L, Est GFR (MDRD) Non-Af44 L, BUN/Creatinine Ratio 6.3 L, Glucose 235 H, Calcium 9.2, Magnesium 1.7 03/18/23 01:39: Urine Color Yellow, Urine Clarity Clear, Urine pH 6.0, Ur Specific Lester 1.020, Urine Protein 30 H, Urine Glucose (UA) 1000 H, Urine Ketones 5 H, Urine Occult Blood 250 H, Urine Nitrite Negative, Urine Bilirubin Negative, Urine Urobilinogen 1 H, Ur Leukocyte Esterase Negative, Urine RBC 10-25 SEEN, Urine WBC 0 SEEN, Ur Squamous Epith Cells 0 SEEN, Urine Bacteria 1+, Urine Mucus 0 SEEN 03/18/23 06:42: POC Glucose 195 H Radiology Impression Abdomen/Pelvis CT 03/18/23 00:17 IMPRESSION: 1. 5 mm mid left ureteral calculus resulting in mild left-sided hydronephrosis. 2. Nonobstructing by mm right renal calculus. 3. Distal descending and proximal sigmoid colonic diverticulosis without evidence of acute diverticulitis. 4. 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 5. Cholelithiasis without evidence of acute cholecystitis. 6. Small fat-containing umbilical hernia without bowel involvement. 7. Fat-containing left inguinal hernia without bowel involvement. Electronically Signed: Parveen Avery MD at 1:47 EDT , 03/18/23 0735 <Electronically signed by Luis Quarles MD> Cosigner Signature (if applicable): CC: Dr. Kendra Garcia MD; Dr. Luis Quarles MD; Dr. Connor Cr MD~ Signed [facility] Work Phone: 1(379) 247-569107-26-2023 Discharge summary Author Beata Saldivar [facility] March 18, 2023 7:06am Note Date/Time March 18, 2023 12:1 9am [facility] Medical Records Department [address] [place] [address] Emergency Department Summary 03/18/23 MR#: [id number] Acct: [id number] Name: RASHAD BAUTISTA Rep #:[id number] : 1970 53 From: Beata Saldivar DO PCP: Dr. Connor Cr MD Status:ADM I NO Location: [place] [address] HPI History of Present Illness Chief Complaint: Flank Pain Detail of Chief Complaint: Left flank pain Informant: patient and spouse/S.O. Narrative Narrative: Patient presents with left flank pain that he initially experienced 3 days ago and came to the emergency department but before getting to triage his pain resolved so is he made his take him home. Patient states that the pain came back about an hour ago and describes it in his back and left side and it severe. Patient vomited x1. No prior history of kidney stones. Denies urinarysymptoms. He does have history of testicular cancer and history of DVT and is currently on Eliquis. [facility] Medical History (Updated 03/18/23 @ 02:[address] Beata Saldivar DO) Bilateral pulmonary embolism Cancer Former tobacco use History of lung cancer History of testicular cancer Restrictive lung disease Home Medications apixaban 5 mg tablet 5 mg PO BID 06/25/21 [History Last Taken 06/25/21] hydrocodone-acetaminophen 5-325mg 5mg-325mg 1 tab PO Q4H PRN PRN Pain 2 days #15TABLETS 03/18/23 [Rx Last Taken Unknown] tamsulosin 0.4 mg capsule (Flomax) 0.4 mg PO DAILY #7 caps 03/18/23 [Rx Last Taken Unknown] Allergy/AdvReac Type Severity Reaction Status Date / Time No Known Allergies Allergy Verified 07/30/20 14:24 Family History (Updated 03/18/23 @ 01:[address] Kendra Garcia MD) Mother Cancer Father VTE (venous thromboembolism) Surgical History (Updated 03/18/23 @ 01:[address] Kendra Garcia MD) H/O abdominal surgery H/O unilateral orchiectomy S/P herniorrhaphy Social History (Updated 06/26/21 @ 00:[address] Aime Mcdermott MD) household members: spouse Smoking Status: Former smoker alcohol intake: current details: Occasionally substance use type: does not use ROS ROS ED Review of Systems ROS Unobtainable: other Constitutional Constitutional ED: Reports lethargy; Denies chills, fever(s), sweats or weight loss Eyes Eyes: Denies blurry vision, change in vision or diplopia ENT ENT ED: Denies rhinorrhea or sore throat Cardiovascular Cardiovascular: Denies chest pain, orthopnea or racing heartbeat Respiratory/Chest Respiratory/Chest: Denies cough, dyspnea, dyspnea on exertion, orthopnea or sputum Gastrointestinal Gastrointestinal: Denies abdominal pain, diarrhea, nausea or vomiting Genitourinary Genitourinary ED: Denies dysuria, hematuria or urinary frequency Musculoskeletal Musculoskeletal: Reports back pain; Denies arthralgias, myalgias or neck pain Integumentary Denies abscess, Abrasions or rash Neurologic Neurologic: Denies headache(s) or weakness Psychiatric Psychiatric: Denies anxiety, depression or suicidal thoughts Endocrine Endocrinology: Denies polydipsia, polyphagia or polyuria Hematologic/Lymphatic Hematologic/Lymphatic: Denies easy bleeding, easy bruising or lymphadenopathy Allergic/Immunologic Allergic/Immunologic ED: Denies mouth swelling, tongue swelling or urticaria EXAM Physical Exam Const Vital Signs: 03/18/23 00:13 03/18/23 00:13 Temperature 98.1 F Temperature Source Oral Blood Pressure 157/128 H Blood Pressure Mean 137 Positive well nourished and well developed General Appearance ED: well developed and NAD HEENT Reports TM's clear and moist mucous membranes normocephalic and atraumatic; Negative for trauma or tenderness Tympanic Membrane ED: Yes TM's clear Eyes PERRL and EOMs intact bilaterally General Eye ED: Negative for pale conjunctiva or scleral icterus Neck no lymphadenopathy, supple and no JVD General: Negative for tenderness Chest Wall inspection of chest normal and palpation of chest normal Chest: Negative for tenderness Resp normal respiratory effort and clear to auscultation bilaterally Effort and Inspection: Negative for respiratory distress or pain with movement Auscultation: Negative for rhonchi, wheezes or diminished lung sounds Cardio regular rate, regular rhythm, S1 normal heart sound, S2 normal heart sound and no murmurs Peripheral Pulses: pulses 2+ throughout GI normal to inspection, nondistended, normoactive bowel sounds, soft to palpation,non-distended and no masses GI Narrative: Tenderness to the left lower quadrant with some mild guarding. There is no rebound, rigidity, or pedal signs. He does have CVA tenderness on the left. Back/Spine no thoracic nor lumbar tenderness; Negative for no CVA tenderness Back/Spine Narrative: Left CVA tenderness. Extremity normal to inspection General Extremety ED: Negative for edema General Extremity: Negative for edema Neuro oriented x3, CN's II-XII intact bilaterally, no sensory deficits noted and gait normal Sensorium / Orientation: awake, alert, oriented to person, oriented to place andoriented to time Motor Exam: strength 5/5 throughout and strength abnormal Psych mental status grossly normal Skin no rashes or lesions noted and no wounds MDM MDM MDM Narrative Medical decision making narrative: Patient with sudden onset of left flank pain. In the differential would be kidney stone versus aortic aneurysm versus UTI or bowel obstruction or diverticulitis. IV established on arrival. Patient was medicated with Dilaudidas well as Zofran and Toradol and he had good pain relief with that. CBC with differential white count 9.7 with a hemoglobin of 16 and he platelet count of 243. Chemistries unremarkable. Glucose was elevated at 235. Urinalysis negative for infection but did show 1000 of glucose. Also 10-[address] scan of the abdomen pelvis showed cholelithiasis without evidence of cholecystitis. Patient had a 5 mm stone in the left mid ureter with hydroureter. Patient also with left inguinal hernia containing fat. At this point I believe his pains caused by the ureteral lithiasis on the left. At 5 mm he is right on the borderof passing this on his own. He would like to go home and attempt to pass it on his own. He will be given a prescription for naproxen as well as Flomax and hydrocodone for pain. Patient advised to return if worsening pain, fever, vomiting, or condition worsening way. He will be given a referral to urology for follow- up. I also discussed with patient his elevated blood glucose level and the fact that he spilling glucose in the urine and concern for type 2 diabetes. He will manage his sugar intake and follow-up with his primary care physician regarding these findings for further evaluation for type 2 diabetes and possible starting diet and exercise regimen versus medication to manage this. Prior to discharging the patient he developed more severe pain and nausea. This time he will be admitted for symptom management. Lab Data Attestation: I reviewed the patient's lab results. Labs: Laboratory Results - last 24 hr 03/18/23 03/18/23 00:20 01:39 WBC 9.7 RBC 5.38 Hgb 16.1 Hct 45.0 MCV 83.6 MCH 29.9 MCHC 35.8 RDW Std Deviation 38.2 RDW Coeff of Uriel 12.6 Plt Count 243 MPV 9.2 Immature Gran % (Auto) 0.900 Neut % (Auto) 59.8 Lymph % (Auto) 29.0 [place] % (Auto) 7.8 Eos % (Auto) 1.7 Baso % (Auto) 0.8 Absolute Neuts (auto) 5.8 Absolute Lymphs (auto) 2.82 Nucleated RBC % 0 Sodium 139 Potassium 3.4 L Chloride 105 Carbon Dioxide 24.0 Anion Gap 10 BUN 11 Creatinine 1.74 H Estim Creat Clear Calc 51.86 Est GFR (MDRD) Af Amer 53 L Est GFR (MDRD) Non-Af 44 L BUN/Creatinine Ratio 6.3 L Glucose 235 H Calcium 9.2 Urine Color Yellow Urine Clarity Clear Urine pH 6.0 Ur Specific Lester 1.020 Urine Protein 30 H Urine Glucose (UA) 1000 H Urine Ketones 5 H Urine Occult Blood 250 H Urine Nitrite Negative Urine Bilirubin Negative Urine Urobilinogen 1 H Ur Leukocyte Esterase Negative Urine RBC 10-25 SEEN Urine WBC 0 SEEN Ur Squamous Epith Cells 0 SEEN Urine Bacteria 1+ Urine Mucus 0 SEEN Discharge Plan Triage Chief Complaint: Flank Pain ED Provider: Beata Saldivar Dx/Rx/DC Orders Clinical Impression: Hyperglycemia, Urolithiasis Instructions: ED Kidney Stone w/ Colic, ED Hyperglycemia New Susp Diabetes Prescriptions: New hydrocodone-acetaminophen [hydrocodone-acetaminophen] 5-325 mg tablet 1 tab PO Q4H PRN PRN (Reason: Pain) 2 Days Qty: 15 0RF tamsulosin [Flomax] 0.4 mg capsule 0.4 mg PO DAILY Qty: 7 0RF No Action apixaban 5 MG tablet 5 mg PO BID Primary Care Provider: Connor Cr Referrals: Luis Quarles MD [Med Staff - Active Staff] - 3-5 Days Connor Cr MD [Primary Care Provider] - 3-5 Days Disposition Disposition: Acute Care Hospital [facility] What to do if you have Problems For any increased pain, shortness of breath, bleeding, nausea or vomiting, chestpain, or any unexpected problems, contact your Primary Care Provider. Call [facility] ([phone]) or report to the closest Emergency Room. Call 911 if necessary. 03/18/23705 <Electronically signed by Beata Saldivar DO> Cosigner Signature (if applicable): CC: Dr. Connor Cr MD ~ Signed [facility] Work Phone: 1(161) 366-676207-26-2023 History and physical note Author Kendra Garcia [facility] March 18, 2023 2:59am Note Date/Time March 18, 2023 2:42 am [facility] Medical Records Department [address] [place] [id number] H&P Exam - Hospitalist 03/18/23 0234 MR#: [id number] Acct: [id number] Name: RASHAD BAUTISTA Rep #:[id number] : 1970 53 From: Kendra Garcia MD PCP: Dr. Connor Cr MD Status:REG E R Location: ED HPI - General General Date of Admission: 03/18/23 Date of Service: 03/18/23 Chief Complaint: Flank pain, N/V. HPI Narrative The patient is a 53 y/o M w/ PMHx: Obesity, Former tobacco use, Restrictive lungdisease, Hx Metastatic Testicular CA (mediastinal, retroperitoneal and pelvic lymph node along with a pleural based nodule.) in remission, Hx VTE (BL PE), CKDstage III who presents to the [facility] ED on 03/18/23 with history of persistent ongoing left flank pain x 3 days with nausea and emesis associated with no fevers or chills with no history of previous kidney stones initially reportedly in triage several days prior when he had onset of discomfort however because it was very busy and his pain seemed to subside he had left at that time but notes worsening since. He notes the pain tends to come in waves and is also in the L sided of the abdomen. He rates the pain currently 4/10 in severity but notes it does ramp up to 10/10 in severity. Work-up in the ED included T98.1, BP 157/128,CBC with WBC 9.7, hemoglobin 16.1, platelet 243 without shift, BMP with potassium 3.4, BUN/creatinine 11/1.74, glucose 235, urinalysis with specific gravity 1.20, protein 30, glucose thousand, ketone 5, occult blood 250, nitrite negative, leukocyte Estrace negative with 0 urine WBCs with 1+ urine bacteria, CT abdomen and pelvis with a 5 mm mid left ureteral calculus resulting in mild left-sided hydronephrosis, nonobstructing right renal calculus, descending distal and proximal sigmoid colonic diverticulosis without evidence of acute diverticulitis, mild haziness of the root of the mesentery with associated shotty lymph nodes, small fat-containing umbilical hernia without bowel involvement, cholelithiasis without evidence of acute cholecystitis, fat-containing left inguinal hernia without bowel involvement. Patient was attempted to be discharged to home from the ED with a prescription for naproxen,Flomax and hydrocodone as well as follow-up with primary care physician for hyperglycemia however upon tentative discharge patient had persistent pain and nausea prompting admission instead. [facility] Medical History (Updated 03/18/23 @ 02:[address] Kendra Garcia MD) Bilateral pulmonary embolism Former tobacco use History of testicular cancer Restrictive lung disease Home Medications apixaban 5 mg tablet 5 mg PO BID 06/25/21 [History Last Taken 06/25/21] hydrocodone-acetaminophen 5-325mg 5mg-325mg 1 tab PO Q4H PRN PRN Pain 2 days #15TABLETS 03/18/23 [Rx Last Taken Unknown] tamsulosin 0.4 mg capsule (Flomax) 0.4 mg PO DAILY #7 caps 03/18/23 [Rx Last Taken Unknown] Allergy/AdvReac Type Severity Reaction Status Date / Time No Known Allergies Allergy Verified 07/30/20 14:24 Family History Mother Cancer Father VTE (venous thromboembolism) Surgical History H/O abdominal surgery H/O unilateral orchiectomy S/P herniorrhaphy Social History household members: spouse Smoking Status: Former smoker alcohol intake: current details: Occasionally substance use type: does not use ROS ROS Narrative Admission Review of Systems: CONSTITUTIONAL: No weight loss, fever, chills, + weakness or fatigue. HEENT: Eyes: No visual loss, blurred vision, double vision or yellow sclerae. Ears, Nose, Throat: No hearing loss, sneezing, congestion, runny nose or sore throat. SKIN: No rash or itching, lesions, wounds. CARDIOVASCULAR: No chest pain, chest pressure or chest discomfort, palpitations,edema, orthopnea, syncopal events. RESPIRATORY: No shortness of breath, cough or sputum, wheezing, hemoptysis. GASTROINTESTINAL: + anorexia, nausea, vomiting, abdominal pain, flank pain, leftprimarily. No diarrhea, melena, BRBPR. GENITOURINARY: No dysuria, frequency, urgency or retention. NEUROLOGICAL: No headache, dizziness, syncope, paralysis, ataxia, numbness or tingling in the extremities, focal weakness, change in bowel or bladder control,seizure. MUSCULOSKELETAL: + muscle, back pain, joint pain or stiffness. HEMATOLOGIC: No anemia, bleeding or bruising. LYMPHATICS: No enlarged nodes. No history of splenectomy. PSYCHIATRIC: No history of depression or anxiety. ENDOCRINOLOGIC: No reports of sweating, cold or heat intolerance. No polyuria orpolydipsia. ALLERGIES: No history of asthma, hives, eczema or rhinitis. Vital Signs Vital Signs Vital Signs: 03/18/23 00:13 03/18/23 00:13 Temperature 98.1 F Temperature Source Oral Blood Pressure 157/128 H Blood Pressure Mean 137 Weight Weight: 267 lb 10.259 oz Body Mass Index (BMI) 38.4 Physical Exam Narrative Physical Examination: General: Awake, alert, oriented x 3 and cooperative, laying in the ED bed, uncomfortable appearing. Skin: Normal color, normal turgor, no icterus, no cyanosis. HEENT: AT/NC, EOMI, PERRLA, mildly dry MM, no carotid bruits or JVD noted. Lungs: CTA bilaterally, moderate effort, mild decrease BL bases, no rales, ronchi or wheezing. Heart: Regular rate and rhythm; no gallop, rub audible. Abdomen: Soft, obese, diffusely tender although left quadrants greater, no marked distention, mildly hyperactive bowel sounds, notable left flank discomfort with palpation, no obvious HSM however given pain this is a difficultevaluation. Extremities: No cyanosis, clubbing, or edema. Neurological: Patient awake, alert, oriented as noted, cognitive function intact; pupils equally reactive to light and accommodation, cranial nerves II-XIIgrossly normal, moving all 4 extremities, no focal deficits, strength moderatelyto severely globally decreased secondary to acute presentation complaints. Psychiatric: Affect appears fatigued, uncomfortable, no acute evidence of depressive or anxiety feelings. Results Lab / Micro Data 03/18/23 00:20 03/18/23 00:20 Labs: Laboratory Results - last 24 hr 03/18/23 00:20: WBC 9.7, RBC 5.38, Hgb 16.1, Hct 45.0, MCV 83.6, MCH 29.9, MCHC 35.8, RDW Std Deviation 38.2, RDW Coeff of Uriel 12.6, Plt Count 243, MPV 9.2, Immature Gran % (Auto) 0.900, Neut % (Auto) 59.8, Lymph % (Auto) 29.0, [place] % (Auto) 7.8, Eos % (Auto) 1.7, Baso % (Auto) 0.8, Absolute Neuts (auto) 5.8, Absolute Lymphs (auto) 2.82, Nucleated RBC % 0, Sodium 139, Potassium 3.4 L, Chloride 105, Carbon Dioxide 24.0, Anion Gap 10, BUN 11, Creatinine 1.74 H, Estim Creat Clear Calc 51.86, Est GFR (MDRD) Af Amer 53 L, Est GFR (MDRD) Non-Af44 L, BUN/Creatinine Ratio 6.3 L, Glucose 235 H, Calcium 9.2 03/18/23 01:39: Urine Color Yellow, Urine Clarity Clear, Urine pH 6.0, Ur Specific Lester 1.020, Urine Protein 30 H, Urine Glucose (UA) 1000 H, Urine Ketones 5 H, Urine Occult Blood 250 H, Urine Nitrite Negative, Urine Bilirubin Negative, Urine Urobilinogen 1 H, Ur Leukocyte Esterase Negative, Urine RBC 10-25 SEEN, Urine WBC 0 SEEN, Ur Squamous Epith Cells 0 SEEN, Urine Bacteria 1+, Urine Mucus 0 SEEN Assessment & Plan Assessment/Plan (1) Urolithiasis: PLAN: Plan The patient is a 53 y/o M w/ PMHx: Obesity, Former tobacco use, Restrictive lungdisease, Hx Metastatic Testicular CA (lymph nodes, lungs) in remission, Hx VTE (BL PE), CKD stage III who presents to the [facility] ED on 03/18/23 with history of persistent ongoing left flank pain x 3 days with nausea and emesis associated with no fevers or chills with no history of previous kidney stones initially reportedly in triage several days prior when he had onset of discomfort however because it was very busy and his pain seemed to subside he had left at that timebut notes worsening since. #1. Acute Flank Pain secondary to Acute Nephrolithiasis, Acute UTI: Will admit to [facility], maintain on hydration, will continue recently initiated Flomax regimen, will have PRN oral and IV pain regimen; however, if not effective may consider transition to Dilaudid [employer], PRN anti-emetics, monitor I&Os, strain urine, given size of calculus > 4 mm but less than 6 mm may pass without intervention but lowthreshold to involve Urology if not improving/passing stone or renal function worsened. #2. Elevated BP without HTN diagnosis: Admission ED BP elevated, potentially pain related given acute presentation, continue to monitor and add oral regimen if appropriate, as needed IV hydralazine in the interim. #3. Acute Renal Insufficiency on Chronic Kidney Disease Stage III, unclear subtype: Admission BUN/Cr 11/1.74, baseline renal function 1.2-1.5, repeat BMP in AM. #4. Hyperglycemia: Admission glucose 235, urinalysis with thousand glucose, will obtain hemoglobin A1c, in the interim will place on ADA diet with Accu-Cheks with insulin sliding scale. If notable HgBA1c would add nutrition consultation for education and teaching for new onset diabetes. #5. Hypokalemia: Admission K+ 3.4, magnesium level requested, supplementation given, repeat level in AM. #6. 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 #7. Obesity: Weight loss and lifestyle changes encouraged. #8. Former tobacco use: Encourage continued tobacco cessation. #9. History of VTE: Patient with history of DVT, PE, continue home apixaban regimen. #10. DVT prophylaxis: We will continue patient home apixaban regimen. Charges/Coding Visit Charges Inpatient E&M: 08840 Init Hosp L2 03/18/23 0258 <Electronically signed by Kendra Garcia MD> Cosigner Signature (if applicable): CC: Dr. Kendra Garcia MD; Dr. Connor Cr MD~ Signed ADDENDUM by Dr. Kendra Garcia MD on 03/18/23 at 0259 Visit Charges Inpatient E&M: 12870 Init Hosp L2 03/18/23 0259<Electronically signed by Kendra Garcia MD> Cosigner Signature (if applicable): cc: Dr. Kendra Garcia MD; Dr. Connor Cr MD ~* Signed [facility] Work Phone: 1(439) 176-285302-17-2022 NoteHNO ID: [id number] Author: Arnie Crow MD Service: ? Author Type: Physician Type: Progress Notes Filed: 10/10/2021 8:12 AM Note Text: HISTORY AND PHYSICAL Rashad Bautista 1970 REFERRING PHYSICIAN: Self CHIEF COMPLAINT: Consult (Left Groin Pain) HPI: Rashad is a 51 year old male with a complaint of a bulge without discomfort in his left inguinal region. The patient notes discomfort in this area and a bit of a bulge after shoveling snow. He still notes a bulge but denies pain in the area. I had seen the patient a year previously for a complicated abdominal wall incisional hernia with multiple defects and a larger periumbilical defect containing small bowel. The patient underwent a laparoscopic lysis of adhesions along with laparoscopic repair of incisional hernia using a parietene DS 20 x 25 cm mesh. He is doing well from that surgical repair. Patient is currently starting a diet and planning to lose approximately 40 pounds. He would prefer not to have this hernia repaired until later on in the fall. The patient notes no symptoms of bowel obstruction and denies nausea or vomiting. 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 ALLERGIES: Patient has no known allergies. PERSONAL HISTORY: Social History Tobacco Use - Smoking status: Former Smoker Packs/day: 0.25 Years: 0.50 Pack years: 0.12 Types: Cigarettes Quit date: 05/29/1986 Years since quittin.3 - Smokeless tobacco: Never Used - Tobacco comment: Pt smoked 3-4 cigarettes daily x 6 months. Vaping Use - Vaping Use: Never used Substance Use Topics - Alcohol use: Yes Comment: rarely - Drug use: No FAMILY HISTORY: FAMILY HISTORY Problem Relation Age of Onset - Diabetes Paternal Grandmother - Stroke Mother - Heart Father passed 32 - Anesthesia Problems No Family History REVIEW OF SYMPTOMS: The review of systems data was entered by the nurse and reviewed by mo Nursing Notes: Sharonda Vigil 10/10/2021 7:03 AM Signed REVIEW OF SYSTEMS: General: The patient denies fatigue, denies weight loss, denies weight gain, denies feeling hot, and denies feelings of cold. Eyes: The patient denies glaucoma, denies eye injury/surgery, wears glasses or contacts. Ear/Nose/Throat: The patient denies allergies, denies hayfever, denies ear infections, and denies bloody noses. Cardiovascular: The patient denies chest pain, denies heart disease, NOTES high blood pressure,denies cardiac stent, denies prior heart attack, denies irregular heart beat, NOTES high cholesterol, denies poor circulation, denies heart failure, other cardiac issues, denies claudication, denies cold feet, denies peripheral arterial stent. Respiratory: The patient denies tuberculosis, denies pneumonia, denies frequent cough, denies pulmonary embolism, denies shortness of breath, and denies coughing up blood. Gastrointestinal: The patient denies difficulty swallowing, denies acid reflux, denies ulcers, denies vomiting, denies jaundice/hepatitis, denies gallbladder problems, denies black or tarry stools, denies hemorrhoids, denies bleeding from rectum, denies diverticulitis, denies constipation, denies diarrhea, denies loss of stool control, and denies hernias. Kidney/Bladder: The patient denies kidney stones, denies urine infections, and denies bloody urine. Skin: The patient denies a history of skin cancer, denies bleeding/changing moles, and denies a history of skin rash. Neurologic: The patient denies a history of epilepsy/convulsions, denies headaches, denies head/spinal injuries, and denies stroke/TIA. Psychiatric: The patient denies psychiatric medications, denies depression, and denies voices, denies substance abuse. Endocrine: The patient denies thyroid disorders, denies diabetes, and denies hormonal problems. Hematologic: The patient denies a history of bruising, denies bleeding, and denies anemia, denies blood clots. Infections: The patient denies a history of measles and mumps, denies rheumatic fever, and denies sexually transmitted diseases. Musculoskeletal: The patient denies back pain/injury, denies back problems, denies sciatica, denies knee/foot trouble, denies arthritis, or denies (more content not included)...[facility] summary Author Tamir Horowitz [facility] March 19, 2023 8:00am Note Date/Time March 19, 2023 7:57 am [facility] Medical Records Department [address] [place] [address] Instructions for Home/Discharge Instructions 03/19/23 0755 MR#: [id number] Acct: [id number] Name: RASHAD BAUTISTA Rep #:[id number] : 1970 53 From: Tamir Shaikh PCP: Dr. Connor Cr MD Status:ADM I NO Discharge Instructions Diet Discharge Diet: No restrictions Activity Discharge Activity: Return to Normal Activity Weight Bearing Status: Weight bearing as tolerated Dressing / Incision Call your doctor if you observe: Fever of 101 or Higher, Coldness, Increased Pain, Numbness or Tingling, Change in Color, Inability to urinate, Inability to have a bowel movement, Shortness of breath, Dizziness, Fainting spells, Swellingin the ankles, Chest pain, Prolonged hiccupping, Increased palpitations (irregular heartbeat), Calf discomfort and Uncontrolled pain Follow Up Care Please Follow Up With: Luis Quarles MD When: IN 2 WEEKS Test Results: Test results from this visit will be discussed in further detail at your follow- up appointment, if applicable. Discharge Plan Admission Admit Date/Time: 03/18/23 02:38 Primary Reason for Your Visit: kidney stone, left ureteric calculus Attending Provider: Tamir Horowitz Primary Care Provider: Connor Cr Consulting Providers: Kendra Garcia; Luis Quarles Instructions Patient Instructions: ED Kidney Stone w/ Colic, ED Hyperglycemia New Susp Diabetes Discharge Orders/Prescriptions Prescriptions: New hydrocodone-acetaminophen [hydrocodone-acetaminophen] 5-325 mg tablet 1 tab PO Q4H PRN PRN (Reason: Pain) 2 Days Qty: 15 0RF tamsulosin [Flomax] 0.4 mg capsule 0.4 mg PO DAILY Qty: 7 0RF glipizide 5 mg tablet 5 mg PO BID 30 Days Qty: 60 0RF Continued apixaban 5 MG tablet 5 mg PO BID rosuvastatin 5 mg tablet 5 mg PO DAILY Held furosemide 20 mg tablet 20 mg PO DAILY Hold Instructions: Hold for 5 days until kidney function returns to normal. Other Ambulatory Orders: Abdomen Single View (Routine) Timeframe: 2 Weeks Facility: [facility] - Location: [facility] Ordered By: Dr. Luis Quarles Referrals / Follow Up: Luis Quarles MD [Med Staff - Active Staff] - 3-5 Days Connor Cr MD [Primary Care Provider] - 3-5 Days (For new onset diabetes mellitus. A1c 7.9 %. Started on glipizide. Consider starting metformin when kidney function returns to normal) Disposition Disposition (needs filled in before D/C Order can be placed): Home, Self Care 03/19/23 0800<Electronically signed by Tamir Horowitz MD>Tamir Horowitz MD CC: Dr. Kendra Garcia MD; Dr. Luis Quarles MD; Dr. Connor Cr MD ~ Signed [facility] Work Phone: Discharge summary Author Tamir Horowitz [facility] March 19, 2023 8:45am Note Date/Time March 19, 2023 8:01 am [facility] Medical Records Department [address] [place] [address] Discharge Summary 03/19/23 0845 MR#: [id number] Acct: [id number] Name: RASHAD BAUTISTA Rep #:[id number] : 1970 53 From: Tamir Shaikh PCP: Dr. Connor Cr MD Status:ADM I NO Location: [place] [id number] Providers Date of Admission: 03/18/23 Date of Discharge: 03/19/23 Primary Care Physician: Dr. Connor Cr MD Consultations 03/18/23 07:25 Consult: Urology Routine Consulting Provider: Luis Quarles Reason for Consult: Left ureteral calculus causing hydronephrosis EMERGENT Consult: No MD Notified: Yes Date Notified: 03/18/23 Time Notified: 07:26 Method of Notification: Verbal Reason For Visit: NEPHROLITHIASIS Diagnosis Discharge Diagnosis (1) Urolithiasis: Status: Acute Code(s): N20.9 - Urinary calculus, unspecified Qualifiers: Urinary calculus location: ureter Qualified Code(s): N20.1 - Calculus of ureter Plan The patient is a 53 y/o M who was admitted on 03/18/23 with history of persistentongoing left flank pain x 3 days with nausea and emesis associated with no fevers or chills with no history of previous kidney stones #1. Acute Flank Pain secondary to Acute Nephrolithiasis, Acute UTI: [facility] On Flomax. Urologist consulted. CT abdomen individually reviewed and shows 5 mm calculus in the left mid ureter causing left hydronephrosis. Pain did not relieve in 3 days but worsening therefore probably might not pass spontaneously. Patient has nonobstructive 5 mm calcified stone in the mid right renal pelvis. No right-sided hydronephrosis. Patient had cystoscopy with left retrograde pyelogram ureteroscopy and left stent placement. It was found to have left obstructing ureteric calculi. Continue IV antibiotics ceftriaxone. Urine culture ordered. 03/19: I have low suspicion of UTI as patient does not have symptoms of increasedfrequency or urgency, dysuria. UA showed 0 WBC, nitrite and LE negative. RBC 2025 cells. Patient had 2 days of empiric IV ceftriaxone because of obstructed left ureteric stone. Patient had stenting of the left ureter and advised to follow-up with Dr. Quarles in 1 week for possible lithotripsy. #2. Elevated BP without HTN diagnosis: Admission ED BP elevated, potentially pain related given acute presentation, continue to monitor and add oral regimen if appropriate, as needed IV hydralazine in the interim. Patient blood pressure is normal. Advised follow-up with PCP for either ambulatory or home BP monitoring for formal diagnosis of hypertension. #3. RODRIGUEZ on Chronic Kidney Disease Stage IIIa: Admission BUN/Cr 11/1.74, baseline renal function 1.2-1.5, repeat renal function shows improvement 1.49. Avoid nephrotoxic medications. Patient advised to have BMP in 1 week and follow-up with PCP. #4. Hyperglycemia: Admission glucose 235, urinalysis with thousand glucose, will obtain hemoglobin A1c, in the interim will place on ADA diet with Accu-Cheks with insulin sliding scale. If notable HgBA1c would add nutrition consultation for education and teaching for new onset diabetes. 03/19: Patient random blood glucose more than 200. A1c 7.9%. As patient creatinine still improving, cannot give metformin. Patient discharged on glipizide 5 mg twice daily. Advised to follow-up PCP in 2 weeks. #5. Hypokalemia: Admission K+ 3.4, magnesium level requested, supplementation given, Potassium was replaced. #6. 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 #7. Obesity: Weight loss and lifestyle changes encouraged. #8. Former tobacco use: Encourage continued tobacco cessation. #9. History of VTE: Patient with history of DVT, PE, continue home apixaban regimen. #10. DVT prophylaxis: We will continue patient home apixaban regimen. Discharge medication reconciliation done. Discharge follow-up instructions completed. Discharge process discussed with the patient and all questions wereanswered to patient's satisfaction. Total time spent, exact 35 minutes on discharge meds reconciliation, examination, coordination of care with nurses and ancillary staff, review of imaging and blood test and discussion with the patient on follow-up instructions. Clinical Impression(s) from Imaging Studies Abdomen/Pelvis CT 03/18/23 00:17 IMPRESSION: 1. 5 mm mid left ureteral calculus resulting in mild left-sided hydronephrosis. 2. Nonobstructing by mm right renal calculus. 3. Distal descending and proximal sigmoid colonic diverticulosis without evidence of acute diverticulitis. 4. 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 5. Cholelithiasis without evidence of acute cholecystitis. 6. Small fat-containing umbilical hernia without bowel involvement. 7. Fat-containing left inguinal hernia without bowel involvement. Electronically Signed: Parveen Avery MD at 1:47 EDT , Medications at Discharge Home Medications apixaban 5 mg tablet 5 mg PO BID blood thinner, hx DVT 06/25/21 furosemide 20 mg tablet 20 mg PO DAILY water pill 03/18/23 hydrocodone-acetaminophen 5-325mg 5mg-325mg 1 tab PO Q4H PRN PRN Pain 2 days #15TABLETS 03/18/23 rosuvastatin 5 mg tablet 5 mg PO DAILY cholesterol 03/18/23 tamsulosin 0.4 mg capsule (Flomax) 0.4 mg PO DAILY #7 caps 03/18/23 glipizide 5 mg tablet 5 mg PO BID 30 days #60 tabs 03/19/23 Physical Exam Narrative Seen and examined. Patient does not have fever. Left flank pain with radiation to upper abdomen has most resolved. He feels mild pain on pinching or pushing. No prior historyof kidney stone. No history of urologic procedure in the past. Denies burning micturition, increased frequency or urgency or hematuria. No dribbling of urine/incontinence. Physical exam General: Alert, Oriented x3, Cooperative HEENT: Atraumatic, PERRLA, EOMI, Normocephalic Oral: No Gingival or Mucosal Lesions/ Ulcerations Neck: Supple, No JVD, Negative Carotid Bruits Lungs: Air entry diminished in bilateral lung bases. No crepitation/rhonchi Cardiovascular: Regular rate, Regular Rhythm, Normal S1, Normal S2, No murmurs Abdomen: Bowel Sounds Present, Soft, Non-Distended : Mild deep tenderness on left flank. No hematuria. No suprapubic tenderness. Extremities: No edema, Capillary Refill Less than 3 Seconds Skin: No rashes, No breakdown Musculoskeletal: No Tenderness to Palpation of Joints or Extremities Neurological: Cranial nerves II-XII grossly intact, DTR 2+/4 and Symmetrical, Neuro grossly intact Psych/Mental Status: Normal Affect, Appropriate. Weight / BMI Weight Weight: 264 lb 15.93 oz Body Mass Index (BMI) 37.9 ABG / Lab / Microbiology Data 03/18/23 00:20 03/18/23 06:40 Laboratory: Laboratory Results - last 24 hr 03/18/23 00:20: Hemoglobin A1c 7.9 H 03/18/23 06:40: WBC Cancelled, Corrected WBC Cancelled, RBC Cancelled, Hgb Cancelled, Hct Cancelled, MCV Cancelled, MCH Cancelled, MCHC Cancelled, RDW Std Deviation Cancelled, RDW Coeff of Uriel Cancelled, Plt Count Cancelled, MPV Cancelled, Immature Gran % (Auto) Cancelled, Neut % (Auto) Cancelled, Lymph % (Auto) Cancelled, [place] % (Auto) Cancelled, Eos % (Auto) Cancelled, Baso % (Auto)Cancelled, Absolute Neuts (auto) Cancelled, Absolute Lymphs (auto) Cancelled, Total Counted Cancelled, Neutrophils % (Manual) Cancelled, Band Neutrophils % Cancelled, Lymphocytes % (Manual) Cancelled, Monocytes % (Manual) Cancelled, Eosinophils % (Manual) Cancelled, Basophils % (Manual) Cancelled, Metamyelocytes% Cancelled, Myelocytes % Cancelled, Promyelocytes % Cancelled, Blast Cells % Cancelled, Plasma Cell % (Manual) Cancelled, Other Cells % Cancelled, Nucleated RBC % Cancelled, Nucleated RBCs/100 WBC Cancelled, Differential Comment Cancelled, Diff Path Review Cancelled, Hypersegmented Neuts Cancelled, Atypical Lymphocytes Cancelled, Reactive Lymphocytes Cancelled, Smudge Cells Cancelled, Toxic Granulation Cancelled, Toxic Vacuolation Cancelled, Dohle Bodies Cancelled, Rory Rods Cancelled, Platelet Estimate Cancelled, Plt Morphology Comment Cancelled, RBC Morphology Cancelled 03/18/23 06:40: RBC Morphology Cancelled, Polychromasia Cancelled, HypochromasiaCancelled, Poikilocytosis Cancelled, Basophilic Stippling Cancelled, Anisocytosis Cancelled, Microcytosis Cancelled, Macrocytosis Cancelled, Spherocytes Cancelled, Sickle Cells Cancelled, Target Cells Cancelled, Tear DropCells Cancelled, Ovalocytes Cancelled, Stomatocytes Cancelled, Marin-Ivey Bodies Cancelled, Kiran Cells Cancelled, Bite Cells Cancelled, Crenated Cell Cancelled, Acanthocytes (Spur) Cancelled, Rouleaux Cancelled, Schistocytes Cancelled, Hemoglobin A1c Cancelled 03/18/23 11:16: POC Glucose 189 H 03/18/23 16:51: POC Glucose 205 H 03/18/23 22:42: POC Glucose 266 H 03/19/23 06:03: POC Glucose 209 H D/C Instructions Discharge Diet: No restrictions Weight Bearing Status: Weight bearing as tolerated Call your doctor if you observe: Fever of 101 or Higher, Coldness, Increased Pain, Numbness or Tingling, Change in Color, Inability to urinate, Inability to have a bowel movement, Shortness of breath, Dizziness, Fainting spells, Swellingin the ankles, Chest pain, Prolonged hiccupping, Increased palpitations (irregular heartbeat), Calf discomfort and Uncontrolled pain Please Follow Up With: Luis Quarles MD When: IN 2 WEEKS Meaningful Use Info Meaningful Use Diagnoses (Choose all that apply): None applicable Discharge Plan Admission Admit Date/Time: 03/18/23 02:38 Primary Reason for Your Visit: kidney stone, left ureteric calculus Attending Provider: Tamir Horowitz Primary Care Provider: Connor Cr Consulting Providers: Kendra Garcia; Luis Quarles Instructions Patient Instructions: ED Kidney Stone w/ Colic, ED Hyperglycemia New Susp Diabetes Discharge Orders/Prescriptions Prescriptions: New hydrocodone-acetaminophen [hydrocodone-acetaminophen] 5-325 mg tablet 1 tab PO Q4H PRN PRN (Reason: Pain) 2 Days Qty: 15 0RF tamsulosin [Flomax] 0.4 mg capsule 0.4 mg PO DAILY Qty: 7 0RF glipizide 5 mg tablet 5 mg PO BID 30 Days Qty: 60 0RF Continued apixaban 5 MG tablet 5 mg PO BID rosuvastatin 5 mg tablet 5 mg PO DAILY Held furosemide 20 mg tablet 20 mg PO DAILY Hold Instructions: Hold for 5 days until kidney function returns to normal. Other Ambulatory Orders: Abdomen Single View (Routine) Timeframe: 2 Weeks Facility: [facility] - Location: [facility] Ordered By: Dr. Luis Quarles Referrals / Follow Up: Luis Quarles MD [Med Staff - Active Staff] - 3-5 Days Connor Cr MD [Primary Care Provider] - 3-5 Days (For new onset diabetes mellitus. A1c 7.9 %. Started on glipizide. Consider starting metformin when kidney function returns to normal) Disposition Disposition (needs filled in before D/C Order can be placed): Home, Self Care Charges/Coding Visit Charges Inpatient E&M: 52751 Disch Hosp >30min 03/19/23 0845 <Electronically signed by Tamir Horowitz MD> Cosigner Signature (if applicable): CC: Dr. Connor Cr MD; Dr. Tamir Horowitz MD~ Signed [facility] Work Phone: Evaluation + Plan note No data available for this section [facility] Evaluation note* Diagnosis Onset Date Resolution Status Hyperglycemia acute Urolithiasis acute [facility] Work Phone: Evaluation note* Diagnosis Onset Date Resolution Status Urolithiasis resolved [facility] Work Phone: Evaluation noteNo assessment information available [facility] Work Phone: Hospital Discharge instructions No data available for this section [facility] Progress note No data available for this section [facility] Reason for referral (narrative)No reason for referral information available[facility] Work Phone: Summary Purpose Family History Relationship Condition Age at Onset Recorded Date/T patrick mother Malignant neoplasm Unknown father Venous thromboembolism (VTE) Unknown Advance Directives Advance Directive Response Recorded Date/ Time Advance Directives No June 24, 2016 9:57am Living Will No March 18, 2023 4:07am Power of Sanitation Worker Cleaning Equipment No March 18 4:07am Advance Directive Response Recorded Date/ Time Living Will Yes October 26, 2024 1:30am Power of Sanitation Worker Cleaning Equipment Yes October 26 1:30am Name of Medical Power of Sanitation Worker Cleaning Equipment SOO HARDY ON October 26, 2024 1:30am Advance Directives No June 24, 2016 9:57am Procedure Findings Note HNO ID: [id number] Author: Ismael Gao (Aa) Service: ? Author Type: Claim Specialist Type: Anesthesia Procedure Notes Filed: 07/04/2020 9:46 AM Note Text: ANESTHESIOLOGY PROCEDURE NOTE Airway General Information Procedure Start Time/Medication Administration: 07/04/2020 9:17 AM Patient location during procedure: OR Indications and Patient Condition Preoxygenated: yes Patient position: sniffing Difficult Mask: No Indications for airway management: anesthesia anesthesia circuit Method: asleep Cricoid Pressure: Yes Final Airway Details Final airway type: endotracheal airway Final Endotracheal Airway: ETT Cuffed: yes Successful intubation technique: video laryngoscopy Devices used: REPP Endotracheal tube insertion site: oral Blade: Mary Blade size: #4 ETT size (mm): 8.0 Measured from: lips Measurement (cm): 24 Placement verified by: capnometry Cormack-Lehane Classification: grade I - full view of glottis Number of attempts at approach: 2 Ventilation between attempts: BVM Othe (more content not included)... Note HNO ID: [id number] Author: Ismael Gao (Aa) Service: ? Author Type: Claim Specialist Type: Anesthesia Procedure Notes Filed: 07/04/2020 12:49 PM Note Text: ANESTHESIOLOGY PROCEDURE NOTE Peripheral Nerve Block General Information SIGNATURE: DORIS GUARDADO PATIENT NAME: Rashad Bautista DATE: July 04, 2020 TIME: 12:49 PM CSN: [id number] Note HNO ID: [id number] Author: Oscar Peres Service: ? Author Type: Anesthesiologist Type: Anesthesia Procedure Notes Filed: 07/04/2020 12:52 PM Note Text: ANESTHESIOLOGY PROCEDURE NOTE Peripheral Nerve Block General Information Procedure Start Time/Medication Administration: 07/04/2020 12:41 PM Procedure End time: 07/04/2020 12:48 PM Patient location during procedure: OR Timeout Performed Pre-procedure: timeout performed Consent Obtained: Yes Patient identity confirmed: arm band Reason for block: post-op pain management/at surgeon's request Staffing Anesthesiologist: Jorge Peres Performed by: anesthesiologist Preparation Sterility Preparation: hand hygiene performed prior to procedure, surgical cap used, mask used, sterile drape used during line insertion, skin prep agent completely dried prior to procedure Site Prep: Chloraprep Pre-Procedure Neuro Exam Location: ABDOMEN Sensory: intact Motor: intact Procedure Details Patient Position: supine Monitoring: Pulse OX, EKG and NIBP B (more content not included)... Chief Complaint and Reason for Visit Chief Complaint ADD XRAY RIGHT SHOUL ISABEL INJURY flank pain NEPHROLITHIASIS NEPHROLITHIASIS Reason for Visit Hyperglycemia Urolithiasis Chief Complaint ADD XRAY RIGHT SHOUL ISABEL INJURY flank pain NEPHROLITHIASIS NEPHROLITHIASIS EORDER Reason for Visit Urolithiasis Chief Complaint Admit Date GROIN PAIN October 26, 2024 12:2 3am LT LEG PAIN October 26, 2024 12:3 9pm LT LEG PAIN October 26, 2024 1:19 pm Additional Source Comments (unrecognized sect ion and content) No Status Records FoundNo Status Records FoundNo Status Records FoundNo Status Records FoundNo Status Records FoundNo Status Records Found INFORMATION SOURCE (unrecogn ized section and content) DATE CREATED AUTHOR 07/06/2020 [facility] DATE CREATED AUTHOR AUTHOR'S ORGANIZ ATION 02/02/2021 [facility] DATE CREATED AUTHOR AUTHOR'S ORGANIZ ATION 11/12/2021 [facility] DATE CREATED AUTHOR AUTHOR'S ORGANIZ ATION 09/05/[address] [facility] DATE CREATED AUTHOR AUTHOR'S ORGANIZ ATION 02/04/2024 [facility] ([place] DATE CREATED AUTHOR AUTHOR'S ORGANIZ ATION 11/07/20[facility] Care Teams (unrecognized sec tion and content) Team Status: Active Member Role Status Dates Dr. Connor Cr MD Family Provider Active Dr. Connor Cr MD Primary Care Provider Active Team Status: Active Member Role Status Dates Dr. Connor Cr MD Primary Care Provider Active Dr. Beata Saldivar DO Emergency Provider Active Dr. Kendra Garcia MD Attending Provider Active Team Status: Active Member Role Status Dates Dr. Connor Cr MD Primary Care Provider Active Dr. Beata Saldivar DO Emergency Provider Active Dr. Kendra Garcia MD Admit Provider, Other Provider Active Dr. Tamir Horowitz MD Attending Provider, Other Provi isabel Active Dr. Luis Quarles MD Other Provider Active Team Status: Inactive Member Role Status Dates Dr. Connor Cr MD Primary Care Provi isabel, Attending Provider, Referring Provider Active Team Status: Inactive Member Role Status Dates Dr. Connor Cr MD Primary Care Provider Active Dr. Beata Saldivar DO Emergency Provider Active Dr. Kendra Garcia MD Admit Provider, Other Provider Active Dr. Tamir Horowitz MD Attending Provider Active Dr. Luis Quarles MD Other Provider Active Team Status: Inactive Member Role Status Dates Dr. Connor Cr MD Primary Care Provider Active Dr. Luis Quarles MD Attending Provider, Referr ing Provider Active Team Status: Active Member Role Status Dates Dr. Connor Cr MD Primary Care Provider Active Team Status: Inactive Member Role Status Dates Dr. Connor Cr MD Primary Care Provider Active Start: October 26, 2024 End: October 26, 2024 Dr. Filippo Izaguirre DO Attending Provider Active Start: October 26, 2024 End: October 26, 2024 Dr. Filippo Izaguirre DO Emergency Provider Active Start: October 26, 2024 End: October 26, 2024 Team Status: Inactive Member Role Status Dates Dr. Connor Cr MD Primary Care Provider Active Start: October 26, 2024 End: October 26, 2024 Dr. Filippo Izaguirre DO Attending Provider Active Start: October 26, 2024 End: October 26, 2024 Dr. Filippo Izaguirre DO Referring Provider Active Start: October 26, 2024 End: October 26, 2024 Team Status: Active Member Role Status Dates Dr. Primitivo Cutler MD Attending Provider Active Start: October 26, 2024 Dr. Filippo Izaguirre , Referring Provider Active Start: October 26, 2024 Goals (unrecognized section and content) Goals may be documented in a n alternate section FOR RECORDS PERTAINING TO PATIENTS WHO ARE OR HAVE BEEN ENROLLED IN A CHEMICAL DEPENDENCY/SUBSTANCEABUSE PROGRAM, SOME INFORMATION MAY BE OMITTED. This clinical summary was aggregated from multiple sources. Caution should be exercised in using it in the provision of clinical care. This summary normalizes information from multiple sources, and as a consequence, information in this document may materially change the coding, format and clinical context of patient data. In addition, data may be omitted in some cases. CLINICAL DECISIONS SHOULD BE BASED ON THE PRIMARY CLINICAL RECORDS. [email or web address] provides no warranty or guarantee of the accuracy or completeness of information in this document.
== END | disposition home or self-care (01) ==
LOC: MTRAD 09:14
PROVIDERS: PCP Family Medicine; Referring Provider Family Medicine; Visit Provider Family Medicine
DX: M25.562 Pain in left knee (principal)
CPT/HCPCS: 73564